=== PATIENT | male | born 1935 | race Caucasian/White ===

== ENCOUNTER 2016-04-28 01:59 | Inpatient (IN) ==
--- NOTE | 2016-04-28 05:56 | Internal Med History&Physical ---
<Mike Musa - Last Filed: 04/28/16 06:31> Date of Encounter: 04/28/16 Time of Encounter: 05:52 Assessment and Plan (1) NSTEMI (non-ST elevated myocardial infarction) Current visit: Yes Status: Acute Troponin of >50 collected at [place], Cardiology consulted and will manage intervention Continue on Heparin ggt, ASA, Statin, Morphine PRN for pain; patient has adverse reaction to Beta-blockers, will consider adding them He was on supplemental oxygen but is now requesting BiPAP as he has respiratory distress Will repeat troponin x1 and obtain lipid panel and echocardiogram (2) Acute respiratory failure Current visit: Yes Status: Acute Patient currently has labored breathing despite supplemental oxygen, likely secondary to decompensated heart failure from NSTEMI Will offer BiPAP to alleviate work of breathing and recheck ABG Start on breathing treatments he takes at home as scheduled Qualifiers: Qualified Code(s): J96.00 - Acute respiratory failure, unspecified whether with hypoxia or hypercapnia (3) Acute decompensated heart failure Current visit: Yes Status: Acute No previous records in our chart to confirm with echo, but he does appear fluid overloaded in his lungs Will give another dose of Lasix 40 IV and continue him on BiPAP Obtain echocardiogram once patient is stable (4) CKD (chronic kidney disease) Current visit: Yes Status: Suspected Unsure of baseline, but patient does admit to previous high Cr readings but does not see dice table operator Once patient is more stable, will trend Cr and consider nephrology consult if no improvement Avoid nephrotoxic agents, holding home Lisinopril Qualifiers: Qualified Code(s): N18.9 - Chronic kidney disease, unspecified (5) Hypertension Current visit: Yes Status: Chronic Will hold home Cardizem and Lisinopril as blood pressure is stable and patient will be receiving Lasix Continue monitoring vitals closely in ICU setting Qualifiers: Qualified Code(s): I10 - Essential (primary) hypertension Internal Medicine - H&P: HPI Chief complaint: shortness of breath Admitted From: Home Plans for Post Hospital Care: Home History of present illness: Mr. Gonzalez is a 81 year old male who was transferred from [place] emergency department where he presented with 3 days of progressive shortness of breath. He states that the shortness of breath occurred suddenly at rest and he does not have any associated chest pain other than heartburn. 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 He denies any cardiac history but does endorse AAA repair and carotid endarectomy. He does have a history of kidney disease but does not see a dice table operator regularly. He admits that he is unsure about his CODE STATUS and would like to wait until his arrive before making a decision. However, he decided to be full code for now and that he may change his mind later after speaking with his . He currently still has a nonproductive cough and also complains of constipation and sweating, but denies any palpitations, fever, nausea, vomiting. Past Med Surg Social Fam HX - Past Medical History Medical history: COPD, hyperlipidemia, hypertension, renal disease - Social History Smoking Status: Former smoker Smokeless Tobacco Status: No Alcohol use: none Drug use: none Internal Medicine - H&P: Meds Aspirin [Ecotrin] 325 mg PO DAILY 04/27/16 [History] Cholecalciferol (Vitamin D3) [Vitamin D] 50,000 unit PO QWEEK 04/27/16 [History] Ciprofloxacin HCl [Cipro] 500 mg PO BID 04/27/16 [History] Diltiazem HCl [Diltiazem ER] 180 mg PO BID 04/27/16 [History] Fluticasone/Salmeterol [Advair 250-50 Diskus] 1 puff IH BID 04/27/16 [History] Furosemide [Lasix] 40 mg PO DAILY 04/27/16 [History] Ipratropium/Albuterol Neb [Duoneb] 3 ml IH Q6HR 04/27/16 [History] Lisinopril [Zestril] 20 mg PO QPM 04/27/16 [History] Pravastatin Sodium [Pravachol] 80 mg PO DAILY 04/27/16 [History] Tamsulosin HCl [Flomax] 0.4 mg PO DAILY 04/27/16 [History] Vitamin B Complex [B Complex] 1 tab PO DAILY 04/27/16 [History] Lisinopril [Zestril] 10 mg PO QAM 04/28/16 [History] Zolpidem [Ambien] 5 mg PO HS 04/28/16 [History] Allergies Beta-Blockers (Beta-Adrenergic Bloc Adverse Reaction (Verified 04/27/16 23:50) See Comments SYNCOPAL EPISODE codeine Adverse Reaction (Verified 04/27/16 23:50) Nausea All Systems PM: A 10-system review of systems was performed and is negative for pertinent findings except as documented above in the HPI. - Constitutional Constitutional: no chills, no fever(s), no night sweats - EENT Eyes: no change in vision, no discharge, no pain, no photophobia Ears: no ear discharge, no ear pain, no tinnitus Nose, mouth and throat: no dysphagia, no nasal discharge, no neck pain, no sore throat - Cardiovascular Cardiovascular ROS IM: dyspnea, no chest pain, no diaphoresis, no lightheadedness, no palpitations, no syncope - Respiratory Respiratory: cough, no dyspnea, no wheezing, no excessive phlegm production - Gastrointestinal Gastrointestinal: constipation, heartburn, no abdominal pain, no diarrhea, no hematemesis, no hematochezia, no melena, no nausea, no vomiting - Musculoskeletal Musculoskeletal ROS IM: no numbness, no tingling - Integumentary Integumentary IM: no rash, no unusual bruising - Neurological Neurological ROS: no confusion, no convulsions, no focal weakness, no numbness, no tingling, no tremor(s) - Hematologic/Lymphatic Hematologic/Lymphatic: no easy bruising - Constitutional Vitals: Temp Pulse Resp BP Pulse Ox 98.9 F 117 30 125/87 100 04/28/16 05:45 04/28/16 05:45 04/28/16 05:45 04/28/16 05:45 04/28/16 05:45 General appearance: Present: cooperative, mild distress (respiratory), pleasant , answers questions appropriately - Head Head exam: Present: atraumatic, normocephalic - Eye Eye exam: Present: PERRL, conjuntiva pink, sclera anicteric - Neck Neck exam general surgery: Present: supple, trachea midline. Absent: lymphadenopathy - Respiratory Respiratory exam: Present: rales. Absent: accessory muscle use, rhonchi, wheezes - Cardiovascular Cardiovascular exam: Present: +S1, +S2, tachycardia. Absent: diastolic murmur, gallop, rubs, systolic murmur - GI/Abdominal GI/Abdominal exam: Present: distended, normal bowel sounds, soft, no peritoneal signs. Absent: guarding, tenderness - Extremities Exam Extremities exam: Present: pedal edema (trace), warm, radial pulses palpable and symetrical. Absent: calf tenderness, cyanotic - Neurological Exam Neurological exam: Present: alert, no focal deficits. Absent: facial droop, speech deficit - Skin Skin exam: Present: dry, intact <Javon Dumont - Last Filed: 05/02/16 03:20> Assessment and Plan (1) SIRS (systemic inflammatory response syndrome) Current visit: Yes Status: Acute . (2) Acute and chronic respiratory failure with hypoxia Current visit: Yes Status: Acute . 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 (4) Acute kidney injury superimposed on CKD Current visit: Yes Status: Acute . (5) CKD (chronic kidney disease) stage 3, GFR 30-59 ml/min Current visit: Yes Status: Chronic . (6) Type 2 diabetes mellitus Current visit: Yes Status: Chronic . Qualifiers: Diabetes mellitus complication status: with unspecified complications Diabetes mellitus senior technical editor insulin use: without fci use Qualified Code( s): E11.8 - Type 2 diabetes mellitus with unspecified complications (7) Hyperkalemia, diminished renal excretion Current visit: Yes Status: Acute . (8) Transaminitis Current visit: Yes Status: Acute . (9) Acute coronary syndrome Current visit: Yes Status: Acute . (10) Atrial fibrillation Current visit: Yes Status: Acute . Qualifiers: Atrial fibrillation type: unspecified Qualified Code(s): I48.91 - Unspecified atrial fibrillation (11) Hematuria Current visit: Yes Status: Acute . (12) NSTEMI (non-ST elevated myocardial infarction) Current visit: Yes Status: Acute (13) Hypertension Current visit: Yes Status: Chronic Qualifiers: Hypertension type: essential hypertension Qualified Code(s): I10 - Essential (primary) hypertension Internal Medicine - H&P: HPI History of present illness: Mr. Gonzalez is a 81 year old male Past Med Surg Social Fam HX - Past Medical History Source: old records reviewed Medical history: arthritis, coronary artery disease, peripheral artery disease - Past Surgical History Surgical History: orthopedic, other, other - Social History Activity Level: Mostly sedentary Recent Out of Country Travel Within the Last 8 Weeks: No Exposure or Possible Exposure to Illness During Travel: No All Systems PM: A 10-system review of systems was performed and is negative for pertinent findings except as documented above in the HPI. - Constitutional Vitals: Temp Pulse Resp BP Pulse Ox 98.6 F 80 18 129/60 94 L 05/01/16 23:00 05/02/16 02:00 05/02/16 02:00 05/02/16 02:00 05/02/16 02:00 Internal Med - H&P Results - Labs CBC & Chem 7: 05/01/16 03:57 05/01/16 03:57 Labs: Short CBC 05/01/16 Range/Units 03:57 WBC 6.1 (4.3-11.1) K/mcL Hgb 11.9 L (12.9-16.9) g/dL Hct 36.4 L (37.5-50.1) % Plt Count 149 (140-400) K/mcL Neutrophils # 4.6 (1.6-8.9) K/mcL BMP 05/01/16 03:57 Sodium 140 Potassium 3.8 Chloride 101 Carbon Dioxide 28 BUN 72 H Creatinine 2.76 H Glucose 116 H Calcium 8.1 L Abnormal lab results RBC 3.72 M/mcL (4.19-5.50) L 05/01/16 03:57 Hgb 11.9 g/dL (12.9-16.9) L 05/01/16 03:57 Hct 36.4 % (37.5-50.1) L 05/01/16 03:57 Immature Plt Fraction 7.3 % (1.1-6.1) H 04/30/16 02:35 PT 14.2 Seconds (9.4-12.1) H 05/01/16 03:57 APTT 86.1 Seconds (26.0-36.0) H 04/30/16 Unknown ABG pO2 164 mmHg (85-104) H 04/28/16 08:13 ABG HCO3 29.2 mEQ/L (21-27) H 04/28/16 08:13 ABG Total CO2 30.6 mEq/L (20-26) H 04/28/16 08:13 ABG O2 Saturation 99 % (95-98) H 04/28/16 08:13 ABG Base Excess 4.0 mEq/L (-2.0 to 3.0) H 04/28/16 08:13 BUN 72 mg/dL (8-26) H 05/01/16 03:57 Creatinine 2.76 mg/dL (0.72-1.25) H 05/01/16 03:57 Est GFR ( Amer) 27 (> 60) L 05/01/16 03:57 Est GFR (Non-Af Amer) 22 (> 60) L 05/01/16 03:57 Glucose 116 mg/dL (70-99) H 05/01/16 03:57 POC Glucose 140 (58-89) H 04/28/16 18:55 Hemoglobin A1c 5.8 % (-5.6) H 04/29/16 02:28 Calculated Osmolality 312 (280-300) H 05/01/16 03:57 Uric Acid 15.9 mg/dL (3.5-7.2) H 04/30/16 02:35 Calcium 8.1 mg/dL (8.6-10.8) L 05/01/16 03:57 Phosphorus 5.4 mg/dL (2.3-4.7) H 04/30/16 02:35 AST 110 Units/L (5-34) H 04/29/16 02:28 Troponin I > 50.00 ng/mL (0-0.03) H* 04/28/16 08:00 B-Natriuretic Peptide 2025 pg/mL (0-100) H 04/29/16 02:28 Albumin 2.7 g/dL (3.5-5.0) L 04/30/16 02:35 Albumin/Globulin Ratio 0.9 (1.1-2.2) L 04/29/16 02:28 LDL Cholesterol, Calc 124 mg/dL (0-99) H 04/28/16 08:00 HDL Cholesterol 36 mg/dL (40-59) L 04/28/16 08:00 Cholesterol/HDL Ratio 5.0 (0-4.9) H 04/28/16 08:00 Vitamin B12 > 2000 pg/mL (213-816) H 04/30/16 02:35 PTH Intact 250.8 pg/ml (8.5-72.5) H 04/30/16 02:35 Ur Specimen Adequacy See below A 04/28/16 08:32 Urine Color Red (Yellow) A 04/29/16 16:00 Urine Clarity Turbid (Clear) A 04/29/16 16:00 Urine Protein 30 mg/dL (Neg-Trace) H 04/29/16 16:00 Urine Blood Large (Negative) H 04/29/16 16:00 Ur Leukocyte Esterase Large (Negative) H 04/29/16 16:00 Urine Microscopic RBC TNTC per hpf (0-3) H 04/29/16 16:00 Urine Microscopic WBC 15-30 per hpf (0-3) H 04/29/16 16:00 Ur Squamous Epith Cells Many per lpf (None-Few) H 04/29/16 16:00 Ur Culture Indicated? YES (NO) A 04/29/16 16:00 Microalb/Creat Ratio 61 (0-30) H 04/29/16 17:04 Protein/Creatinin Ratio 0.21 mg/mg (0-0.20) H 04/29/16 17:04 Urine Total Protein 15 mg/dL (1-14) H 04/29/16 17:04 Laboratory Last Values WBC 6.1 K/mcL (4.3-11.1) 05/01/16 03:57 RBC 3.72 M/mcL (4.19-5.50) L 05/01/16 03:57 Hgb 11.9 g/dL (12.9-16.9) L 05/01/16 03:57 Hct 36.4 % (37.5-50.1) L 05/01/16 03:57 MCV 97.8 fL (83.0-100.0) 05/01/16 03:57 MCH 32.0 pg (28.0-33.3) 05/01/16 03:57 MCHC 32.7 g/dL (31.6-35.5) 05/01/16 03:57 RDW 13.1 % (11.5-14.5) 05/01/16 03:57 Plt Count 149 K/mcL (140-400) 05/01/16 03:57 MPV 11.4 fL (9.4-12.4) 05/01/16 03:57 Immature Gran % 0.5 % (0-4) 05/01/16 03:57 Seg Neutrophils % 76.5 % 05/01/16 03:57 Lymphocytes % 11.1 % 05/01/16 03:57 Monocytes % 10.6 % 05/01/16 03:57 Eosinophils % 1.3 % 05/01/16 03:57 Basophils % 0.0 % 05/01/16 03:57 Neutrophils # 4.6 K/mcL (1.6-8.9) 05/01/16 03:57 Lymphocytes # 0.7 K/mcL (0.6-4.6) 05/01/16 03:57 Monocytes # 0.6 K/mcL (0.0-1.3) 05/01/16 03:57 Eosinophils # 0.1 K/mcL (0.0-0.6) 05/01/16 03:57 Basophils # 0.0 K/mcL (0.0-0.2) 05/01/16 03:57 Immature Plt Fraction 7.3 % (1.1-6.1) H 04/30/16 02:35 PT 14.2 Seconds (9.4-12.1) H 05/01/16 03:57 INR 1.3 05/01/16 03:57 APTT 86.1 Seconds (26.0-36.0) H 04/30/16 Unknown ABG pH 7.42 pH Units (7.32-7.45) 04/28/16 08:13 ABG pCO2 45 mmHg (35-45) 04/28/16 08:13 ABG pO2 164 mmHg (85-104) H 04/28/16 08:13 ABG HCO3 29.2 mEQ/L (21-27) H 04/28/16 08:13 ABG Total CO2 30.6 mEq/L (20-26) H 04/28/16 08:13 ABG O2 Saturation 99 % (95-98) H 04/28/16 08:13 ABG Base Excess 4.0 mEq/L (-2.0 to 3.0) H 04/28/16 08:13 Blood Gas Modality BIPAP 04/28/16 08:13 Inspired O2 40 % 04/28/16 08:13 Sodium 140 mEq/L (136-145) 05/01/16 03:57 Potassium 3.8 mEq/L (3.5-4.5) 05/01/16 03:57 Chloride 101 mEq/L (98-109) 05/01/16 03:57 Carbon Dioxide 28 mEq/L (19-29) 05/01/16 03:57 BUN 72 mg/dL (8-26) H 05/01/16 03:57 Creatinine 2.76 mg/dL (0.72-1.25) H 05/01/16 03:57 Est GFR ( Amer) 27 (> 60) L 05/01/16 03:57 Est GFR (Non-Af Amer) 22 (> 60) L 05/01/16 03:57 BUN/Creatinine Ratio 26 (6-26) 05/01/16 03:57 Glucose 116 mg/dL (70-99) H 05/01/16 03:57 POC Glucose 140 (58-89) H 04/28/16 18:55 Est Mean Plasma Glucose 120 mg/dl 04/29/16 02:28 Hemoglobin A1c 5.8 % (-5.6) H 04/29/16 02:28 Calculated Osmolality 312 (280-300) H 05/01/16 03:57 Uric Acid 15.9 mg/dL (3.5-7.2) H 04/30/16 02:35 Calcium 8.1 mg/dL (8.6-10.8) L 05/01/16 03:57 Phosphorus 5.4 mg/dL (2.3-4.7) H 04/30/16 02:35 Magnesium 2.1 mg/dL (1.6-2.6) 04/28/16 08:00 Total Bilirubin 0.5 mg/dL (0.2-1.2) 04/29/16 02:28 Direct Bilirubin 0.2 mg/dL (0.0-0.5) 04/28/16 08:00 Indirect Bilirubin 0.2 mg/dL (0.0-1.2) 04/28/16 08:00 AST 110 Units/L (5-34) H 04/29/16 02:28 ALT 44 Units/L (0-55) 04/29/16 02:28 Alkaline Phosphatase 62 Units/L (38-126) 04/29/16 02:28 Troponin I > 50.00 ng/mL (0-0.03) H* 04/28/16 08:00 B-Natriuretic Peptide 2025 pg/mL (0-100) H 04/29/16 02:28 Serum Total Protein 6.2 g/dL (6.0-8.3) 04/29/16 02:28 Albumin 2.7 g/dL (3.5-5.0) L 04/30/16 02:35 Globulin 3.3 g/dL (2.4-3.5) 04/29/16 02:28 Albumin/Globulin Ratio 0.9 (1.1-2.2) L 04/29/16 02:28 Triglycerides 104 mg/dL (< 150) 04/28/16 08:00 Cholesterol 181 mg/dL (< 200) 04/28/16 08:00 LDL Cholesterol, Calc 124 mg/dL (0-99) H 04/28/16 08:00 VLDL Cholesterol, Calc 21 mg/dL (< 31) 04/28/16 08:00 HDL Cholesterol 36 mg/dL (40-59) L 04/28/16 08:00 Cholesterol/HDL Ratio 5.0 (0-4.9) H 04/28/16 08:00 Vitamin B12 > 2000 pg/mL (213-816) H 04/30/16 02:35 25-OH Vitamin D Total 48 ng/mL (30-80) 04/30/16 02:35 TSH 0.472 mcIU/mL (0.350-4.840) 04/28/16 08:00 PTH Intact 250.8 pg/ml (8.5-72.5) H 04/30/16 02:35 Ur Specimen Adequacy See below A 04/28/16 08:32 Urine Color Red (Yellow) A 04/29/16 16:00 Urine Clarity Turbid (Clear) A 04/29/16 16:00 Urine pH 5.5 pH Units (5.0-8.0) 04/29/16 16:00 Ur Specific [place] 1.013 (1.010-1.025) 04/29/16 16:00 Urine Protein 30 mg/dL (Neg-Trace) H 04/29/16 16:00 Urine Glucose (UA) Normal mg/dL (Normal) 04/29/16 16:00 Urine Ketones Negative mg/dL (Negative) 04/29/16 16:00 Urine Blood Large (Negative) H 04/29/16 16:00 Urine Nitrite Negative (Negative) 04/29/16 16:00 Urine Bilirubin Negative (Negative) 04/29/16 16:00 Urine Urobilinogen Normal mg/dL (Normal) 04/29/16 16:00 Ur Leukocyte Esterase Large (Negative) H 04/29/16 16:00 Urine Microscopic RBC TNTC per hpf (0-3) H 04/29/16 16:00 Urine Microscopic WBC 15-30 per hpf (0-3) H 04/29/16 16:00 Ur Eosinophil Smear 0 % (None Seen) 04/29/16 16:00 Ur Squamous Epith Cells Many per lpf (None-Few) H 04/29/16 16:00 Urine Bacteria None Seen per hpf (None-Few) 04/29/16 16:00 Hyaline Casts Test Not Performed 04/29/16 16:00 Ur Culture Indicated? YES (NO) A 04/29/16 16:00 Urine Creatinine 71 mg/dL 04/29/16 17:04 Urine Microalbumin 43 mg/L 04/29/16 17:04 Microalb/Creat Ratio 61 (0-30) H 04/29/16 17:04 Protein/Creatinin Ratio 0.21 mg/mg (0-0.20) H 04/29/16 17:04 Urine Total Protein 15 mg/dL (1-14) H 04/29/16 17:04 Hep Bs Antigen Nonreactive (Nonreactive) 05/01/16 14:15 Blood Type A POSITIVE 04/28/16 08:00 Antibody Screen NEGATIVE 04/28/16 08:00 - ABG Interpretation ABG results: 04/28/16 08:13 ABG pH 7.42 ABG pCO2 45 ABG pO2 164 H ABG HCO3 29.2 H ABG Total CO2 30.6 H ABG O2 Saturation 99 H ABG Base Excess 4.0 H - Impressions ITS Impressions Chest X-Ray 04/29/16 10:24 IMPRESSION: 1. Stable interstitial thickening in the lung bases which may be related to mild pulmonary vascular congestion. 2. No new lung infiltrate. D/ / 04/29/2016 15:36:35 Emmanuel Marie MD / Edith Pollard Interpreting Provider: Emmanuel Marie MD Retroperitoneum Ultrasound 04/30/16 11:30 IMPRESSION: The kidneys are normal in size, though mildly hyperechoic. This could be related to very mild medical renal disease. Simple appearing cystic lesions are seen in the kidneys bilaterally, without solid mass or hydronephrosis. The bladder is not well evaluated given the presence of an unclamped Wright catheter. D/ / Brandyn Day MD / Brandyn Day MD Interpreting Provider: Brandyn Day MD Chest X-Ray 04/30/16 16:27 IMPRESSION: 1. Left internal jugular catheter terminating in the proximal SVC. D/ / Milton Goldberg MD / Milton Goldberg MD Interpreting Provider: Milton Goldberg MD Retroperitoneum Ultrasound 04/30/16 11:30 IMPRESSION: The kidneys are normal in size, though mildly hyperechoic. This could be related to very mild medical renal disease. Simple appearing cystic lesions are seen in the kidneys bilaterally, without solid mass or hydronephrosis. The bladder is not well evaluated given the presence of an unclamped Wright catheter. D/ / Brandyn Day MD / Brandyn Day MD Interpreting Provider: Brandyn Day MD Chest X-Ray 04/30/16 16:27 IMPRESSION: 1. Left internal jugular catheter terminating in the proximal SVC. D/ / Milton Goldberg MD / Milton Goldberg MD Interpreting Provider: Milton Goldberg MD - Attending Attestation My signature below is to certify that this patient is under my care and that I, or the Resident Physician working with me, has had a [id number] encounter with this patient. Care plan has been reviewed and discussed in detail with the patient. Questions addressed. Advance care directive discussion briefly addressed. The patient does not declare any healthcare restrictions at this time. Outpatient medications scheduled. Reviewed, confirmed and facilitated as appropriate. Reconciliation of home treatments including adjustments, substitutions and reintroduction into the treatment regimen will address necessary maintenance therapies for chronic pre-existing medical conditions. Smoking cessation counseling briefly addressed. The patient declares himself a former smoker. Hospital course will be dependent upon clinical findings, treatment response and potential consultative interventions. The patient is at risk for acute clinical decline and morbidity given his presenting chief complaint, advanced age and associated comorbidities. Condition is serious. Prognosis is guarded. CODE STATUS is full.
[2016-04-28] MEDS ORDERED: Naloxone 0.4 MG/ML INJ IVP PRN (06:21)
[2016-04-28] MEDS ORDERED: *HR* Morphine 2 MG/ML SYRINGE IVP PRN (06:21)
[2016-04-28] MEDS ORDERED: Ondansetron 4 MG/2 ML VIAL IVP PRN ×2 (06:21→07:25)
[2016-04-28] MEDS ORDERED: *HR* Heparin 5,000 UNIT/ML VIAL IVP PRN ×6 (06:23→07:05)
[2016-04-28] MEDS ORDERED: Furosemide 40 MG/4 ML VIAL IVP ONE (06:23)
[2016-04-28] MEDS ORDERED: Heparin 25,000 UNIT/500 ML D5W 25,000 UNIT/500 ML MLS IVC SCH ×3 (06:30→06:45)
[2016-04-28] MEDS ORDERED: *HR* Heparin 5,000 UNIT/ML VIAL IVP ONE (07:05)
[2016-04-28] MEDS ORDERED: Nitroglycerin 0.4 MG TAB.SUBL SL PRN (07:05)
[2016-04-28] MEDS ORDERED: *HR* Metoprolol 5 MG/5 ML VIAL IVP PRN (07:05)
[2016-04-28] MEDS ORDERED: Nicotine 21 MG PATCH.TD24 TD PRN (07:05)
[2016-04-28] MEDS ORDERED: Nitroglycerin 25 MG/250 ML INFUS..BTL IVC SCH (07:15)
[2016-04-28] MEDS ORDERED: 0.9 % Sodium Chloride 1,000 ML IVC SCH (07:15)
[2016-04-28] MEDS ORDERED: Albuterol 2.5 MG/3 ML NEBULIZER IH PRN (07:19)
[2016-04-28 08:18] LABS: INR 1.3; Prothrombin Time 14.6 Seconds (9.4-12.1)
[2016-04-28 08:20] LABS: Activated Partial Thrombo Time 59.1 Seconds (26.0-36.0)
[2016-04-28 08:22] LABS: ABG HCO3 29.2 mEQ/L (21-27); ABG Oxygen Saturation 99 % (95-98); ABG PCO2 45 mmHg (35-45); ABG PH 7.42 pH Units (7.32-7.45); ABG PO2 164 mmHg (85-104); ABG TCO2 30.6 mEq/L (20-26); Blood Gas FiO2 40 %
[2016-04-28 08:26] LABS: Albumin 3.4 g/dL (3.5-5.0); Albumin/Globulin Ratio 0.9 (1.1-2.2); Bilirubin,Direct 0.2 mg/dL (0.0-0.5); Bilirubin,Indirect 0.2 mg/dL (0.0-1.2); Bilirubin,Total 0.4 mg/dL (0.2-1.2); Calcium 9.3 mg/dL (8.6-10.8); Globulin 3.6 g/dL (2.4-3.5); Magnesium 2.1 mg/dL (1.6-2.6); Potassium 4.4 mEq/L (3.5-4.5)
[2016-04-28] MEDS: Nystatin SUSP 5 ML UD.LIQ PO SCH ×4 (08:38→20:04)
[2016-04-28] MEDS: Aspirin 81 MG TAB.CHEW PO SCH (08:38)
[2016-04-28] MEDS: Pantoprazole 40 MG VIAL IVPB SCH (08:38)
[2016-04-28 08:39] LABS: Hematocrit 42.3 % (37.5-50.1); Hemoglobin 13.9 g/dL (12.9-16.9); Mean Corpuscular HGB Conc 32.9 g/dL (31.6-35.5); Mean Corpuscular Volume 97.2 fL (83.0-100.0); Mean Platelet Volume 11.7 fL (9.4-12.4); Platelet Count 171 K/mcL (140-400); Red Blood Count 4.35 M/mcL (4.19-5.50); Red Cell Distribution Width 13.2 % (11.5-14.5)
[2016-04-28] MEDS: Nitroglycerin 25 MG/250 ML INFUS..BTL IVC SCH ×2 (08:40→17:43)
[2016-04-28 08:47] LABS: Thyroid Stimulating Hormone 0.472 mcIU/mL (0.350-4.840)
[2016-04-28 08:58] LABS: Bilirubin,Urine Negative (Negative); Blood,Urine Large (Negative); Clarity,Urine Cloudy (Clear); Color,Urine Red (Yellow); Glucose,Urine (UA) Normal (Normal); Ketones,Urine Trace mg/dL (Negative); Protein,Urine 100 mg/dL (Neg-Trace); Specific Gravity,Urine 1.017 (1.010-1.025); Urobilinogen,Urine Normal (Normal)
[2016-04-28 08:59] LABS: Leukocyte Esterase,Urine Small (Negative); Nitrite,Urine Negative (Negative)
[2016-04-28] MEDS ORDERED: NON-FORMULARY MEDICATION 1 EACH EACH (Ipratropium/Albuterol Sulfate [Combivent Respimat In IH SCH (09:00)
[2016-04-28] MEDS: *HR* LORazepam 2 MG/ML VIAL IVP SCH ×4 (10:11→20:06)
[2016-04-28] MEDS: Ipratropium/Albuterol Neb 3 ML IH SCH ×3 (10:52→22:13)
--- NOTE | 2016-04-28 11:28 | Cardiology Consult Note ---
Date of Encounter: 04/28/16 Time of Encounter: 11:25 Assessment and Plan (1) Acute coronary syndrome Current Visit: Yes Status: Acute Mr. Gonzalez presents with a recent SD which likely developed on Saturday at the time of onset of SOB. His ECG demonstrates the development of q waves suggesting recent SD and his troponin is >50. Unfortunately, his GFR is 20 and is at increased risk for VANITA and requiring dialysis if LHC was performed. He is also having hematuria complicating matters. He is not an appropriate candidate for cardiac catheterization at this time. I recommend Nephrology evaluation and Urology as well. He should remain on heparin. He is also on statin and NTG gtt. He has some unclear intolerance to beta blockers although he received this morning without side effect. I recommend holding it at this time. He is also tachypneic and demonstrates increased work of breathing. Presumably , he has systolic heart failure associated with recent SD. I recommend stopping fluids and diuresing him and continuing BIPAP. I discussed the findings, concerns and plan with the patient. He is very concerned about possibility of requiring dialysis if proceed with LHC and would like to avoid invasive evaluation. Discussion w patient/family: The assessment and plan as outlined above was discussed with the patient and/or family members who expressed understanding and agreement. All questions were answered. Thank you for involving us in the care of your patient. Please call with any questions. History of Present Illness Consult date: 04/28/16 Requesting physician: Mike Musa Consult reason: ACS Chief complaint: SOB History of present illness: Mr. Gonzalez is a 81 year old male presenting to [facility] from [place] [facility] for an acute coronary syndrome. The patient states that he developed acute onset of SOB this past Saturday which became progressively worse over the past few days. He decided to be evaluated in the ER last night. He was found to have troponin>50. I reviewed the presenting ECG which demonstrated ST elevation of approximately 1 mm in V3, 0.5mm in V4 associated with q waves. His CXR was unremarkable, BNP 1400 and creatinine 3.12 with a GFR of 19. At the bedside, the patient is somewhat tachypneic on BiPAP. He describes no chest pain and says that he actually feels about "50%" better. He remains hemodynamically stable. Past Med Surg Social Fam HX - Past Medical History Attestation: Yes The following information was validated with the patient. Medical history: COPD, hyperlipidemia, hypertension, renal disease - Social History Smoking Status: Former smoker Smokeless Tobacco Status: No Alcohol use: none Drug use: none Medications and Allergies Aspirin [Ecotrin] 325 mg PO DAILY 04/27/16 [History] Cholecalciferol (Vitamin D3) [Vitamin D] 50,000 unit PO QWEEK 04/27/16 [History] Ciprofloxacin HCl [Cipro] 500 mg PO BID 04/27/16 [History] Diltiazem HCl [Diltiazem ER] 180 mg PO BID 04/27/16 [History] Fluticasone/Salmeterol [Advair 250-50 Diskus] 1 puff IH BID 04/27/16 [History] Furosemide [Lasix] 40 mg PO DAILY 04/27/16 [History] Ipratropium/Albuterol Neb [Duoneb] 3 ml IH Q6HR 04/27/16 [History] Lisinopril [Zestril] 20 mg PO QPM 04/27/16 [History] Pravastatin Sodium [Pravachol] 80 mg PO DAILY 04/27/16 [History] Tamsulosin HCl [Flomax] 0.4 mg PO DAILY 04/27/16 [History] Vitamin B Complex [B Complex] 1 tab PO DAILY 04/27/16 [History] Lisinopril [Zestril] 10 mg PO QAM 04/28/16 [History] Zolpidem [Ambien] 5 mg PO HS 04/28/16 [History] Allergies Beta-Blockers (Beta-Adrenergic Bloc Adverse Reaction (Verified 04/27/16 23:50) See Comments SYNCOPAL EPISODE codeine Adverse Reaction (Verified 04/27/16 23:50) Nausea All Systems Review: A 10-system review of systems was performed and is negative for pertinent findings except as documented above in the HPI. Physical Examination Vital signs reviewed. Vital Signs, Last 4 Hours Temp 04/28/16 08:02 98.6 F General: Conversant, No Apparent Distress, Other (somewhat tachypneic) HEENT: Atraumatic, Other (wearing BIPAP) Cardiac: Reg Rate and Rhythm, Normal S1 and S2, No Murmur Lungs: Other (difficult to appreciate breath sounds-wearing BIPAP) Neuro: Alert and responsive, No focal deficits noted Abdomen: Soft, Non-Tender, Other (bowel sounds present, abdomen obese) Extremities: No Edema, Other (diminished pedal pulses bilaterally, 1+ bilateral femoral pulses, 1+ symmetric radial pulses) Results 04/28/16 08:00 04/28/16 08:00 Lab Results 04/28/16 04/28/16 04/28/16 08:00 08:00 08:00 WBC 10.9 Hgb 13.9 Hct 42.3 Plt Count 171 INR APTT Sodium 142 Potassium 4.4 Chloride 102 Carbon Dioxide 23 BUN 56 H Creatinine 3.02 H Glucose 139 H Calcium 9.3 Magnesium 2.1 Total Bilirubin 0.4 AST 194 H ALT 53 Alkaline Phosphatase 74 Troponin I > 50.00 H* TSH 0.472 04/28/16 08:00 WBC Hgb Hct Plt Count INR 1.3 APTT 59.1 H D Sodium Potassium Chloride Carbon Dioxide BUN Creatinine Glucose Calcium Magnesium Total Bilirubin AST ALT Alkaline Phosphatase Troponin I TSH - Imaging and Cardiology Chest Xray: report reviewed - EKG Interpretation EKG results cardiology: personally reviewed (see HPI), other (Telemetry reviewed , no concerning dysrhythmia, sinus tachycardia) Consult Discharge Plan - Plan Referrals: Tavares Palumbo, FACILITIES ADMINISTRATOR [Primary Care Provider] -
--- NOTE | 2016-04-28 11:57 | Pulmonology Consult Note ---
<Garland Polanco - Last Filed: 04/28/16 11:57> Date of Encounter: 04/28/16 Time of Encounter: 09:30 Past Med Surg Social Fam HX - Past Medical History Medical history: COPD, hyperlipidemia, hypertension, renal disease - Social History Smoking Status: Former smoker Smokeless Tobacco Status: No Alcohol use: none Drug use: none Medications and Allergies Aspirin [Ecotrin] 325 mg PO DAILY 04/27/16 [History] Cholecalciferol (Vitamin D3) [Vitamin D] 50,000 unit PO QWEEK 04/27/16 [History] Ciprofloxacin HCl [Cipro] 500 mg PO BID 04/27/16 [History] Diltiazem HCl [Diltiazem ER] 180 mg PO BID 04/27/16 [History] Fluticasone/Salmeterol [Advair 250-50 Diskus] 1 puff IH BID 04/27/16 [History] Furosemide [Lasix] 40 mg PO DAILY 04/27/16 [History] Ipratropium/Albuterol Neb [Duoneb] 3 ml IH Q6HR 04/27/16 [History] Lisinopril [Zestril] 20 mg PO QPM 04/27/16 [History] Pravastatin Sodium [Pravachol] 80 mg PO DAILY 04/27/16 [History] Tamsulosin HCl [Flomax] 0.4 mg PO DAILY 04/27/16 [History] Vitamin B Complex [B Complex] 1 tab PO DAILY 04/27/16 [History] Lisinopril [Zestril] 10 mg PO QAM 04/28/16 [History] Zolpidem [Ambien] 5 mg PO HS 04/28/16 [History] Allergies Beta-Blockers (Beta-Adrenergic Bloc Adverse Reaction (Verified 04/27/16 23:50) See Comments SYNCOPAL EPISODE codeine Adverse Reaction (Verified 04/27/16 23:50) Nausea All Systems: A 10-system review of systems was performed and is negative for pertinent findings except as documented above in the HPI. Physical Examination Vital Signs: Vital Signs, Last 4 Hours Temp 04/28/16 11:42 97.5 F L 04/28/16 08:02 98.6 F Results - Laboratory Findings CBC and BMP: 04/28/16 08:00 04/28/16 08:00 ABG ABG pH 7.42 pH Units (7.32-7.45) 04/28/16 08:13 ABG pCO2 45 mmHg (35-45) 04/28/16 08:13 ABG pO2 164 mmHg (85-104) H 04/28/16 08:13 ABG O2 Saturation 99 % (95-98) H 04/28/16 08:13 PT/INR, D-dimer PT 14.6 Seconds (9.4-12.1) H 04/28/16 08:00 Abnormal lab findings: Abnormal lab results PT 14.6 Seconds (9.4-12.1) H 04/28/16 08:00 APTT 59.1 Seconds (26.0-36.0) H D 04/28/16 08:00 ABG pO2 164 mmHg (85-104) H 04/28/16 08:13 ABG HCO3 29.2 mEQ/L (21-27) H 04/28/16 08:13 ABG Total CO2 30.6 mEq/L (20-26) H 04/28/16 08:13 ABG O2 Saturation 99 % (95-98) H 04/28/16 08:13 ABG Base Excess 4.0 mEq/L (-2.0 to 3.0) H 04/28/16 08:13 BUN 56 mg/dL (8-26) H 04/28/16 08:00 Creatinine 3.02 mg/dL (0.72-1.25) H 04/28/16 08:00 Est GFR ( Amer) 24 (> 60) L 04/28/16 08:00 Est GFR (Non-Af Amer) 20 (> 60) L 04/28/16 08:00 Glucose 139 mg/dL (70-99) H 04/28/16 08:00 Calculated Osmolality 312 (280-300) H 04/28/16 08:00 AST 194 Units/L (5-34) H 04/28/16 08:00 Troponin I > 50.00 ng/mL (0-0.03) H* 04/28/16 08:00 Albumin 3.4 g/dL (3.5-5.0) L 04/28/16 08:00 Globulin 3.6 g/dL (2.4-3.5) H 04/28/16 08:00 Albumin/Globulin Ratio 0.9 (1.1-2.2) L 04/28/16 08:00 LDL Cholesterol, Calc 124 mg/dL (0-99) H 04/28/16 08:00 HDL Cholesterol 36 mg/dL (40-59) L 04/28/16 08:00 Cholesterol/HDL Ratio 5.0 (0-4.9) H 04/28/16 08:00 Ur Specimen Adequacy See below A 04/28/16 08:32 Urine Color Red (Yellow) A 04/28/16 08:32 Urine Clarity Cloudy (Clear) A 04/28/16 08:32 Urine Protein 100 mg/dL (Neg-Trace) H 04/28/16 08:32 Urine Ketones Trace mg/dL (Negative) H 04/28/16 08:32 Urine Blood Large (Negative) H 04/28/16 08:32 Ur Leukocyte Esterase Small (Negative) H 04/28/16 08:32 - Clinical Findings Intake & Output: Intake & Output 04/27/16 04/28/16 04/28/16 23:59 07:59 15:59 Intake Total 0 / 0 Output Total 100 / 100 375 / 375 Balance -100 / -100 -375 / -375 Weight 104 kg Consult Discharge Plan - Plan Referrals: Tavares Palumbo, MERCHANDISE CARRIER [Primary Care Provider] - <Cris Velarde - Last Filed: 04/28/16 20:14> Date of Encounter: 04/28/16 Assessment and Plan (1) Acute coronary syndrome Current Visit: Yes Status: Acute Appreciate security control assessor input. Patient at risk of his renal function could worsen with contrast during cardiac cath and will defer this to patient and security control assessor. (2) Acute decompensated heart failure Current Visit: Yes Status: Acute This is another risk factor that patient breathing could worsen with pulmonary edema. Hoping with NIV and diuresis will help patient. (3) Acute respiratory failure Current Visit: Yes Status: Acute Patient is tolerating NIV now and there is a risk that he could deteriorate and code status was discussed with patient. He remain full code for now. If worsen, he will need to be on mechanical ventilation. Qualifiers: Respiratory failure complication: hypoxia Qualified Code(s): J96.01 - Acute respiratory failure with hypoxia (4) Hematuria Current Visit: Yes Status: Acute Appreciate urologist's input. (5) NSTEMI (non-ST elevated myocardial infarction) Current Visit: Yes Status: Acute (6) CKD (chronic kidney disease) Current Visit: Yes Status: Chronic Patient has advance lung disease and may need hemodialysis if he receive contrast. Qualifiers: Chronic kidney disease stage: unspecified stage Qualified Code(s): N18.9 - Chronic kidney disease, unspecified History of Present Illness Consult date: 04/28/16 Requesting physician: Jose Angel Dutton Chief complaint: Dyspnea History of present illness: This is a very pleasant 81 year old male with history of copd, but not using BiPAP or oxygen at home. at home and no diagnosis of INOCENCIA was transferred from [place] emergency department where he presented with 3-4 days of progressive dyspnea. He has copd and he stated he use inhalers. He has been on BiPAP and feels it is helping his breathing. He said this was a sudden onset and this happened on rest. He said he has no chest pain, only heartburn. He denies any significant productive cough or significant wheezing. He has constipation and sweating, but no nausea or vomiting and no palpitation. All Systems: A 10-system review of systems was performed and is negative for pertinent findings except as documented above in the HPI. Physical Examination Vital Signs: Vital Signs, Last 4 Hours Temp Pulse Resp BP Pulse Ox 04/28/16 17:00 98 24 99/75 100 04/28/16 16:00 98 20 101/67 100 04/28/16 15:23 24 109/77 100 04/28/16 15:00 98.4 F 102 28 109/77 98 General appearance: alert, other (Mild repiratory distress) Eyes: nonicteric ENT: oropharynx dry Mallampati (class): 3 Neck: supple, no lymphadenopathy, no JVD Effort: normal Inspection: other (Obese) Auscultation: bilateral: rales, rhonchi Percussion: bilateral: not dull Cardiovascular: regular rate and rhythm Gastrointestinal: normoactive bowel sounds, soft, non-tender Extremities: no cyanosis, no edema normal mental status, non-focal exam mood appropriate : there is bleeding around Wright catheter. Ventilator Settings Ventilator Settings: Patient on BiPAP FIO2 40% Results - Laboratory Findings CBC and BMP: 04/28/16 08:00 04/28/16 08:00 ABG ABG pH 7.42 pH Units (7.32-7.45) 04/28/16 08:13 ABG pCO2 45 mmHg (35-45) 04/28/16 08:13 ABG pO2 164 mmHg (85-104) H 04/28/16 08:13 ABG O2 Saturation 99 % (95-98) H 04/28/16 08:13 PT/INR, D-dimer PT 14.6 Seconds (9.4-12.1) H 04/28/16 08:00 Abnormal lab findings: Abnormal lab results PT 14.6 Seconds (9.4-12.1) H 04/28/16 08:00 APTT 47.4 Seconds (26.0-36.0) H 04/28/16 14:07 ABG pO2 164 mmHg (85-104) H 04/28/16 08:13 ABG HCO3 29.2 mEQ/L (21-27) H 04/28/16 08:13 ABG Total CO2 30.6 mEq/L (20-26) H 04/28/16 08:13 ABG O2 Saturation 99 % (95-98) H 04/28/16 08:13 ABG Base Excess 4.0 mEq/L (-2.0 to 3.0) H 04/28/16 08:13 BUN 56 mg/dL (8-26) H 04/28/16 08:00 Creatinine 3.02 mg/dL (0.72-1.25) H 04/28/16 08:00 Est GFR ( Amer) 24 (> 60) L 04/28/16 08:00 Est GFR (Non-Af Amer) 20 (> 60) L 04/28/16 08:00 Glucose 139 mg/dL (70-99) H 04/28/16 08:00 Calculated Osmolality 312 (280-300) H 04/28/16 08:00 AST 194 Units/L (5-34) H 04/28/16 08:00 Troponin I > 50.00 ng/mL (0-0.03) H* 04/28/16 08:00 Albumin 3.4 g/dL (3.5-5.0) L 04/28/16 08:00 Globulin 3.6 g/dL (2.4-3.5) H 04/28/16 08:00 Albumin/Globulin Ratio 0.9 (1.1-2.2) L 04/28/16 08:00 LDL Cholesterol, Calc 124 mg/dL (0-99) H 04/28/16 08:00 HDL Cholesterol 36 mg/dL (40-59) L 04/28/16 08:00 Cholesterol/HDL Ratio 5.0 (0-4.9) H 04/28/16 08:00 Ur Specimen Adequacy See below A 04/28/16 08:32 Urine Color Red (Yellow) A 04/28/16 08:32 Urine Clarity Cloudy (Clear) A 04/28/16 08:32 Urine Protein 100 mg/dL (Neg-Trace) H 04/28/16 08:32 Urine Ketones Trace mg/dL (Negative) H 04/28/16 08:32 Urine Blood Large (Negative) H 04/28/16 08:32 Ur Leukocyte Esterase Small (Negative) H 04/28/16 08:32 - Microbiology Findings Microbiology Findings: Microbiology, Last 48 Hours 04/28/16 06:55 Sputum Culture - Final Sputum - Clinical Findings Intake & Output: Intake & Output 04/28/16 04/28/16 04/28/16 07:59 15:59 23:59 Intake Total 0 / 0 120 / 120 Output Total 100 / 100 825 / 825 Balance -100 / -100 -825 / -825 120 / 120 Weight 104 kg - Attending Attestation I examined this patient and my medical decision-making was reviewed with the ECOMMER[employer] ANALYST/PA/Advanced Practice Nurse/Resident Physician. I agree with the documented findings, disposition and treatment plan as described except to the extent set forth below. Patient seen and examined. Labs, radiology, chart personally reviewed. Agree with resident's history and physical, assessment, plan with following comments: MOTOR AND GENERATOR ASSEMBLER: Patient follows commands, Pulmonary: Acceptable oxygenation and ventilation. Patient on NIV and he feels comfortable with using NIV. I'm concerned with his underlying copd and with cardiac events his condition could deteriorate with his exam indicate possible pulmonary edema. I don't feel patient has AECOPD, will add Symbicort to his treatment. Cardiovascular: Discussed with security control assessor, if patient will need cardiac cath, concern is renal function. Patient on heparin. Patient could deteriorate due to his cardiopulmonary disease as well as renal function. GI: Nutrition per dietary and GI prophylaxis per routine Heme: DVT prophylaxis per routine Renal; urine out put and renal funtion reviewed. Urology consulted for the bleeding from around the Wright catheter. Patient is on heparin drip which is a risk factor. Due to his respiratory failure, diuresis could worsen his renal function. Endorcine: blood glucose is monitored Lines: all lines checked and no evidence of infections Skin: skin care to prevent pressure ulcers per nursing routine care I spent 35 min of Critical Care time with this patient. It involved decision making of high complexity to assess, manipulate, and support vital organ system failure and/or to prevent further life threatening deterioration of the patient' s condition. The time involved in the performance of separately reportable procedures was not counted toward critical care time.
[2016-04-28] MEDS: Heparin 25,000 UNIT/500 ML D5W 25,000 UNIT/500 ML MLS IVC SCH ×2 (13:16→14:53)
[2016-04-28] MEDS: Furosemide 40 MG/4 ML VIAL IVP SCH ×2 (13:18→17:47)
[2016-04-28] MEDS ORDERED: Perflutren Lipid Microsphere 1.3 ML in 0.9 % Sodium Chloride 8.7 ML IVP ONE (13:21)
--- NOTE | 2016-04-28 14:07 | Urology - Consult Note ---
Date of Encounter: 04/28/16 Time of Encounter: 14:05 - Assessment and Plan (1) Hematuria Current Visit: Yes Status: Acute Assessment and plan: 81-year-old man with a history of hematuria after catheter placement and initiation of heparin. I irrigated the catheter and only a small amount of clot return. The urine remained mostly clear. He is tolerating the catheter well. I recommend continuing at for now. The nurses can hand irrigate as necessary. I will follow along with you. It is okay to continue the heparin. Urology CN:HPI Consult date: 04/28/16 Reason for consult Urology: Gross Hematuria Requesting physician: Garland Polanco History of present illness: 81-year-old man was admitted for an MRI, but has a history of renal insufficiency so a cardiac catheter cannot be performed. He has been managed conservatively with heparin. A Wright catheter was placed. He says it was difficult getting the catheter in. There was some blood around the catheter afterwards. Currently the urine is more clear. He is not having any pain associated with the catheter. Prior to admission he felt that he was urinating well. He had a decent stream. He thought he was emptying adequately. Past Med Surg Social Fam HX - Past Medical History Medical history: COPD, hyperlipidemia, hypertension, renal disease - Social History Smoking Status: Former smoker Smokeless Tobacco Status: No Alcohol use: none Drug use: none Medications and Allergies Aspirin [Ecotrin] 325 mg PO DAILY 04/27/16 [History] Cholecalciferol (Vitamin D3) [Vitamin D] 50,000 unit PO QWEEK 04/27/16 [History] Ciprofloxacin HCl [Cipro] 500 mg PO BID 04/27/16 [History] Diltiazem HCl [Diltiazem ER] 180 mg PO BID 04/27/16 [History] Fluticasone/Salmeterol [Advair 250-50 Diskus] 1 puff IH BID 04/27/16 [History] Furosemide [Lasix] 40 mg PO DAILY 04/27/16 [History] Ipratropium/Albuterol Neb [Duoneb] 3 ml IH Q6HR 04/27/16 [History] Lisinopril [Zestril] 20 mg PO QPM 04/27/16 [History] Pravastatin Sodium [Pravachol] 80 mg PO DAILY 04/27/16 [History] Tamsulosin HCl [Flomax] 0.4 mg PO DAILY 04/27/16 [History] Vitamin B Complex [B Complex] 1 tab PO DAILY 04/27/16 [History] Lisinopril [Zestril] 10 mg PO QAM 04/28/16 [History] Zolpidem [Ambien] 5 mg PO HS 04/28/16 [History] Allergies Beta-Blockers (Beta-Adrenergic Bloc Adverse Reaction (Verified 04/27/16 23:50) See Comments SYNCOPAL EPISODE codeine Adverse Reaction (Verified 04/27/16 23:50) Nausea Review of Systems - Constitutional no chills, no fever(s) - EENT Nose, mouth and throat: no dizziness - Cardiovascular chest pain - Respiratory dyspnea - Gastrointestinal no nausea, no vomiting - Genitourinary hematuria, no flank pain - Musculoskeletal no back pain - Integumentary no erythema, no rash - Neurological no weakness - Psychiatric no suicidal ideation - Hematologic/Lymphatic no easy bleeding - Allergic/Immunologic no wheezing Exam Initial Vital Signs Temp Pulse Resp BP Pulse Ox 98.9 F 117 30 125/87 100 04/28/16 05:45 04/28/16 05:45 04/28/16 05:45 04/28/16 05:45 04/28/16 05:45 - General physical appearance Present: well developed, well nourished, no distress - Eyes Absent: icteric - ENT Present: normal nares - Neck Present: no masses - Respiratory Present: normal respiratory effort - Cardiovascular Cardiovascular exam IM: RRR - Abdomen Abdomen: Present: soft - Genitourinary normal penis with no external lesions, other ([address], blood noted around the catheter, urine is clear to light pink.) Urology Results - Labs 04/28/16 08:00 04/28/16 08:00 Abnormal lab results PT 14.6 Seconds (9.4-12.1) H 04/28/16 08:00 APTT 59.1 Seconds (26.0-36.0) H D 04/28/16 08:00 ABG pO2 164 mmHg (85-104) H 04/28/16 08:13 ABG HCO3 29.2 mEQ/L (21-27) H 04/28/16 08:13 ABG Total CO2 30.6 mEq/L (20-26) H 04/28/16 08:13 ABG O2 Saturation 99 % (95-98) H 04/28/16 08:13 ABG Base Excess 4.0 mEq/L (-2.0 to 3.0) H 04/28/16 08:13 BUN 56 mg/dL (8-26) H 04/28/16 08:00 Creatinine 3.02 mg/dL (0.72-1.25) H 04/28/16 08:00 Est GFR ( Amer) 24 (> 60) L 04/28/16 08:00 Est GFR (Non-Af Amer) 20 (> 60) L 04/28/16 08:00 Glucose 139 mg/dL (70-99) H 04/28/16 08:00 Calculated Osmolality 312 (280-300) H 04/28/16 08:00 AST 194 Units/L (5-34) H 04/28/16 08:00 Troponin I > 50.00 ng/mL (0-0.03) H* 04/28/16 08:00 Albumin 3.4 g/dL (3.5-5.0) L 04/28/16 08:00 Globulin 3.6 g/dL (2.4-3.5) H 04/28/16 08:00 Albumin/Globulin Ratio 0.9 (1.1-2.2) L 04/28/16 08:00 LDL Cholesterol, Calc 124 mg/dL (0-99) H 04/28/16 08:00 HDL Cholesterol 36 mg/dL (40-59) L 04/28/16 08:00 Cholesterol/HDL Ratio 5.0 (0-4.9) H 04/28/16 08:00 Ur Specimen Adequacy See below A 04/28/16 08:32 Urine Color Red (Yellow) A 04/28/16 08:32 Urine Clarity Cloudy (Clear) A 04/28/16 08:32 Urine Protein 100 mg/dL (Neg-Trace) H 04/28/16 08:32 Urine Ketones Trace mg/dL (Negative) H 04/28/16 08:32 Urine Blood Large (Negative) H 04/28/16 08:32 Ur Leukocyte Esterase Small (Negative) H 04/28/16 08:32 Diabetes panel 04/28/16 Range/Units 08:00 Sodium 142 (136-145) mEq/L Potassium 4.4 (3.5-4.5) mEq/L Chloride 102 (98-109) mEq/L Carbon Dioxide 23 (19-29) mEq/L BUN 56 H (8-26) mg/dL Creatinine 3.02 H (0.72-1.25) mg/dL Glucose 139 H (70-99) mg/dL Calcium 9.3 (8.6-10.8) mg/dL AST 194 H (5-34) Units/L ALT 53 (0-55) Units/L Alkaline Phosphatase 74 (38-126) Units/L Albumin 3.4 L (3.5-5.0) g/dL Triglycerides 104 (< 150) mg/dL HDL Cholesterol 36 L (40-59) mg/dL Thyroid panel 04/28/16 Range/Units 08:00 TSH 0.472 (0.350-4.840) mcIU/mL Calcium panel 04/28/16 Range/Units 08:00 Calcium 9.3 (8.6-10.8) mg/dL Phosphorus 4.0 (2.3-4.7) mg/dL Albumin 3.4 L (3.5-5.0) g/dL Pituitary panel 04/28/16 Range/Units 08:00 Sodium 142 (136-145) mEq/L Potassium 4.4 (3.5-4.5) mEq/L Chloride 102 (98-109) mEq/L Carbon Dioxide 23 (19-29) mEq/L BUN 56 H (8-26) mg/dL Creatinine 3.02 H (0.72-1.25) mg/dL Glucose 139 H (70-99) mg/dL Calcium 9.3 (8.6-10.8) mg/dL TSH 0.472 (0.350-4.840) mcIU/mL Adrenal panel 04/28/16 Range/Units 08:00 Sodium 142 (136-145) mEq/L Potassium 4.4 (3.5-4.5) mEq/L Chloride 102 (98-109) mEq/L Carbon Dioxide 23 (19-29) mEq/L BUN 56 H (8-26) mg/dL Creatinine 3.02 H (0.72-1.25) mg/dL Glucose 139 H (70-99) mg/dL Calcium 9.3 (8.6-10.8) mg/dL Total Bilirubin 0.4 (0.2-1.2) mg/dL AST 194 H (5-34) Units/L ALT 53 (0-55) Units/L Alkaline Phosphatase 74 (38-126) Units/L Albumin 3.4 L (3.5-5.0) g/dL All other labs normal. Consult Discharge Plan - Plan Referrals: Tavares Palumbo, EVELYN [Primary Care Provider] -
--- NOTE | 2016-04-28 16:51 | ECHO - Doppler Report ---
Echo with Imaging Enhancement Agent Name: Skip Gonzalez Date of Study: 04/28/2016 Date: 1935 Ht: 71.0 in Medical Record#: [id number] Age: 81 Wt: 229.0 lb Gender: Male BSA: 2.23 Order #: [id number] Location: [facility] Room #: IC06 Reading Physician: Franca De Jesus DO Materials Scientist: Isaak Fontana RDCS Ordering Physician: Javon Dumont MD Primary Physician: None Indications: Heart FAILURE Impressions: LVEF 35%. Moderate LV systolic dysfunction with regional wall motion abnormalities (see diagram below). Indeterminate diastolic function. Normal right ventricular size and function. No significant valvular dysfunction. Lack of TR gradient to estimate RVSP. Lack of IVC collapse suggesting elevated RA filling pressures. Left Ventricular Wall Motion: Rest Echo Findings The apex, apical inferior, mid inferior, apical anterior, apical septal, mid inferior septal and apical lateral ramirez were hypokinetic. All other wall segments showed normal motion. Findings: Study Quality * Technically sub-optimal due to body habitus. ECG Findings * Sinus tachycardia. Mitral Valve * Mild mitral annular calcification * No mitral regurgitation. * Normal mitral valve structure. * No mitral stenosis. Aortic Valve * No aortic regurgitation. * Aortic valve not well visualized. * No aortic stenosis. Tricuspid Valve * Tricuspid valve not well visualized. * No tricuspid regurgitation. * Estimated RA pressure is 8 mmHg. Pulmonic Valve * Pulmonic valve is not well visualized. * No pulmonic stenosis. * No pulmonic regurgitation. Pulmonary Artery * Pulmonary artery not well visualized. Left Ventricle * Indeterminate diastolic function. * LVEF 35%. * There is no LV thrombus. * Definity echo contrast was used. Right Ventricle * Normal right ventricular structure and function. Left Atrium * Normal left atrial size. Right Atrium * Normal right atrial size. Interatrial Septum * No evidence of PFO by color Doppler. IVC * The IVC is not dilated. * < 50% respiratory change. Pericardium * There is a trivial pericardial effusion present. No tamponade. Aorta * Not well visualized. History Contrast: Definity 1.3 ml in 8.7 ml of saline 3 ml. Measurements: BP: 121/ 75 2D Normal Values RVIDd: 2.90 cm <2.7 cm LVIDd: 4.60 cm 3.7 - 5.6 cm LVPWd: 1.00 cm 0.6 - 1.1 cm LVIDs: 3.50 cm 1.5 - 3.6 cm AO: 2.60 cm < 4.0 cm LA: 2.60 cm 2.0 - 4.0cm %FS: 23.90 cm >25 % LA volume: 20 Mitral Valve Peak E:.79 m/sec Peak A:1.09 m/sec E/A Ratio:0.7 Peak E' Lat Quirino:8.19 cm/s Peak E' Med Quirino:9.26 cm/s E/E' Lat Ratio:9.6 E/E' Med Ratio:8.5 Updated by Franca De Jesus on 04/28/2016 4:43:00 PM electronically signed on 04/28/2016 4:46:09 PM with status of Final Wall Motion Lr: 1=Normal, 2=Hypokinesis, 3=Akinesis, 4=Dyskinesis, 5=Aneurysmal, 6=Hyperkinetic, X=Not Visualized (Blank)=Missing
[2016-04-28] MEDS: Budesonide/Formoterol 160/4.5 MDI IH SCH (22:13)
[2016-04-29] MEDS: *HR* LORazepam 2 MG/ML VIAL IVP SCH ×7 (00:29→21:36)
[2016-04-29] MEDS: Heparin 25,000 UNIT/500 ML D5W 25,000 UNIT/500 ML MLS IVC SCH ×3 (02:51→23:52)
[2016-04-29 03:12] LABS: Basophils % 0.1 %; Eosinophils % 0.2 %; Hematocrit 39.2 % (37.5-50.1); Hemoglobin 12.8 g/dL (12.9-16.9); Immature Granulocytes % 0.3 % (0-4); Lymphocytes # 0.8 K/mcL (0.6-4.6); Lymphocytes % 7.8 %; Mean Corpuscular HGB Conc 32.7 g/dL (31.6-35.5); Mean Platelet Volume 11.6 fL (9.4-12.4); Monocytes # 0.8 K/mcL (0.0-1.3); Monocytes % 7.8 %; Neutrophils # 8.2 K/mcL (1.6-8.9); Platelet Count 170 K/mcL (140-400); Red Cell Distribution Width 13.2 % (11.5-14.5); Segmented Neutrophils % 83.8 %
[2016-04-29 03:13] LABS: INR 1.4; Prothrombin Time 14.7 Seconds (9.4-12.1)
[2016-04-29 03:21] LABS: Albumin 2.9 g/dL (3.5-5.0); Albumin/Globulin Ratio 0.9 (1.1-2.2); Bilirubin,Total 0.5 mg/dL (0.2-1.2); Calcium 8.9 mg/dL (8.6-10.8); Globulin 3.3 g/dL (2.4-3.5); Hemoglobin A1C 5.8 %; Total Protein 6.2 g/dL (6.0-8.3)
[2016-04-29] MEDS ORDERED: Amiodarone Premix 360 MG/200 ML BAG IVC ONE (04:19)
[2016-04-29] MEDS ORDERED: Amiodarone Premix 360 MG/200 ML BAG IVC SCH (04:30)
[2016-04-29] MEDS: Ipratropium/Albuterol Neb 3 ML IH SCH ×4 (04:42→22:12)
[2016-04-29] MEDS: Nitroglycerin 25 MG/250 ML INFUS..BTL IVC SCH (07:37)
[2016-04-29] MEDS: Furosemide 40 MG/4 ML VIAL IVP SCH ×2 (08:57→17:43)
[2016-04-29] MEDS: Pantoprazole 40 MG VIAL IVPB SCH (08:57)
[2016-04-29] MEDS: Aspirin 81 MG TAB.CHEW PO SCH (08:57)
[2016-04-29] MEDS: Nystatin SUSP 5 ML UD.LIQ PO SCH ×4 (08:57→20:57)
[2016-04-29] MEDS: Budesonide/Formoterol 160/4.5 MDI IH SCH ×2 (09:24→22:12)
--- NOTE | 2016-04-29 09:44 | Urology Progress Note ---
Date of Encounter: 04/29/16 Time of Encounter: 09:42 - Assessment and Plan (1) Hematuria Current Visit: Yes Status: Acute Assessment and plan: Improving. Continue catheter for now. Hand irrigate if necessary. Progress Note Narrative: 81 year old man with a history of hematuria and IL. His urine has been clear overnight. Objective Initial Vital Signs Temp Pulse Resp BP Pulse Ox 98.9 F 117 30 125/87 100 04/28/16 05:45 04/28/16 05:45 04/28/16 05:45 04/28/16 05:45 04/28/16 05:45 - General physical appearance Present: well developed, well nourished, no distress - Respiratory Present: normal respiratory effort, other (facemask on.) - Abdomen Present: soft - Labs 04/29/16 02:28 04/29/16 02:28 Diabetes panel 04/29/16 04/29/16 Range/Units 02:28 02:28 Sodium 141 (136-145) mEq/L Potassium 4.0 (3.5-4.5) mEq/L Chloride 104 (98-109) mEq/L Carbon Dioxide 24 (19-29) mEq/L BUN 65 H (8-26) mg/dL Creatinine 3.02 H (0.72-1.25) mg/dL Glucose 99 (70-99) mg/dL Hemoglobin A1c 5.8 H ( - 5.6) % Calcium 8.9 (8.6-10.8) mg/dL AST 110 H (5-34) Units/L ALT 44 (0-55) Units/L Alkaline Phosphatase 62 (38-126) Units/L Albumin 2.9 L (3.5-5.0) g/dL Calcium panel 04/29/16 Range/Units 02:28 Calcium 8.9 (8.6-10.8) mg/dL Albumin 2.9 L (3.5-5.0) g/dL Pituitary panel 04/29/16 Range/Units 02:28 Sodium 141 (136-145) mEq/L Potassium 4.0 (3.5-4.5) mEq/L Chloride 104 (98-109) mEq/L Carbon Dioxide 24 (19-29) mEq/L BUN 65 H (8-26) mg/dL Creatinine 3.02 H (0.72-1.25) mg/dL Glucose 99 (70-99) mg/dL Calcium 8.9 (8.6-10.8) mg/dL Adrenal panel 04/29/16 Range/Units 02:28 Sodium 141 (136-145) mEq/L Potassium 4.0 (3.5-4.5) mEq/L Chloride 104 (98-109) mEq/L Carbon Dioxide 24 (19-29) mEq/L BUN 65 H (8-26) mg/dL Creatinine 3.02 H (0.72-1.25) mg/dL Glucose 99 (70-99) mg/dL Calcium 8.9 (8.6-10.8) mg/dL Total Bilirubin 0.5 (0.2-1.2) mg/dL AST 110 H (5-34) Units/L ALT 44 (0-55) Units/L Alkaline Phosphatase 62 (38-126) Units/L Albumin 2.9 L (3.5-5.0) g/dL Consult Discharge Plan - Plan Referrals: Tavares Palumbo, DRAFTING TECHNICIAN [Primary Care Provider] -
--- NOTE | 2016-04-29 10:15 | Cardiology Progress Note ---
Date of Encounter: 04/29/16 Time of Encounter: 10:13 Assessment and Plan (1) Acute coronary syndrome Current Visit: Yes Status: Acute Mr. Gonzalez presented with a recent MN which likely developed on Saturday at the time of onset of SOB. His ECG demonstrated the development of q waves suggesting recent MN and his troponin is >50. Unfortunately, his GFR is significantly reduced and is at increased risk for VANITA and requiring dialysis if LHC was performed. This was again discussed with the patient today. He expressed understanding of this risk. He would unlikely be a good candidate for LHC and has declined proceeding given concern for VANITA. I recommend Nephrology evaluation and input as well. Otherwise, his urine has cleared. We will continue heparin for now and consider introduction of plavix for medical therapy. He is also on statin. NTG drip can be stopped. (2) Atrial fibrillation Current Visit: Yes Status: Acute Patient developed AF overnight and was started on Amio gtt. He is now back in NSR. I recommend stopping amiodarone. We will start him on low dose BB ( records document allergy but patient has been tolerant during his stay). Qualifiers: Atrial fibrillation type: unspecified Qualified Code(s): I48.91 - Unspecified atrial fibrillation (3) Systolic heart failure Current Visit: Yes Status: Acute I reviewed the echo images documenting EF 35% with SWMA. He is still requiring supplemental oxygen and BNP has elevated. His I/O is only net negative 961mL. I recommend continuing IV lasix 40mg BID. We will give him an extra dose today. Check CXR. Incentive spirometer. He has an allergy to beta blockers. However, when speaking with the patient it appears it is not a true allergy but rather a side effect of possibly hypotension. He is not describing anaphylaxis. He tolerated a dose of BB since admission. We will start at low dose. Hold off on introducing ACEI due to renal dysfunction. Qualifiers: Heart failure chronicity: acute Qualified Code(s): I50.21 - Acute systolic (congestive) heart failure Discussion w patient/family: The assessment and plan as outlined above was discussed with the patient and/or family members who expressed understanding and agreement. All questions were answered. Thank you for involving us in the care of your patient. Please call with any questions. Subjective Principal diagnosis: ACS Interval history: Mr. Gonzalez has no new complaints this morning. He continues to deny chest pain. He does complain of some chest congestion and cough. Objective Vital Signs, Last 4 Hours Temp Pulse Resp BP Pulse Ox 04/29/16 09:00 85 24 111/58 99 04/29/16 08:01 97.2 F L 04/29/16 08:00 89 21 121/64 100 04/29/16 07:00 89 General: Conversant, No Apparent Distress HEENT: Mucus Membranes Moist Cardiac: Reg Rate and Rhythm, Normal S1 and S2, No Murmur Lungs: Other (diminished breath sounds at bases) Neuro: Alert and responsive, No focal deficits noted Abdomen: Soft, Non-Tender, Other (audible bowel sounds) Extremities: Other (no significant LE edema) Results 04/29/16 02:28 04/29/16 02:28 Lab Results 04/28/16 04/28/16 04/29/16 14:07 20:24 02:28 WBC 9.8 Hgb 12.8 L Hct 39.2 Plt Count 170 INR APTT 47.4 H 74.8 H D Sodium Potassium Chloride Carbon Dioxide BUN Creatinine Glucose Calcium Total Bilirubin AST ALT Alkaline Phosphatase B-Natriuretic Peptide 04/29/16 04/29/16 04/29/16 02:28 02:28 02:28 WBC Hgb Hct Plt Count INR 1.4 APTT 77.0 H Sodium 141 Potassium 4.0 Chloride 104 Carbon Dioxide 24 BUN 65 H Creatinine 3.02 H Glucose 99 Calcium 8.9 Total Bilirubin 0.5 AST 110 H ALT 44 Alkaline Phosphatase 62 B-Natriuretic Peptide 2025 H - Imaging and Cardiology Echo: image reviewed - EKG Interpretation EKG results cardiology: other (Telemetry overnight documents periods of AF) Consult Discharge Plan - Plan Referrals: Tavares Palumbo, VACUUM METALIZER OPERATOR [Primary Care Provider] -
--- NOTE | 2016-04-29 11:00 | Pulmonology Progress Note ---
<Garland Polanco - Last Filed: 04/29/16 16:15> Date of Encounter: 04/29/16 Time of Encounter: 08:30 Assessment and Plan (1) Acute coronary syndrome Current Visit: Yes Status: Acute Patient reports several days worsening shortness of breath and exertional dyspnea prior to presentation to the hospital. Found to have troponins > 50.0 at admission, no ST elevations noted on EKG. Previously started on heparin drip , nitro drip. Given patient's serum creatinine of 3.02, there is concern for contrast-induced nephropathy if patient were to undergo catheterization. Appreciate manager animal recommendation for continued management/care We will consult nephrology regard to patient kidney function in regard to potential catheterization and patient will likely need continued territory sales representative care given his stable CKD We will stop patient nitroglycerin drip, continue sublingual nitroglycerin as needed for chest pain/discomfort Patient amiodarone drip stopped last night/this morning after conversion of heart rate to sinus rhythm (2) NSTEMI (non-ST elevated myocardial infarction) Current Visit: Yes Status: Acute Plan as above (3) Acute decompensated heart failure Current Visit: Yes Status: Acute Given patient shortness of breath, concerning for decompensation of patient known heart failure. We will continue oxygen supplementation as needed and will continue with diuresis (4) Acute respiratory failure Current Visit: Yes Status: Acute Patient maintaining adequate oxygen saturation on nasal cannula, continue supplemental oxygen as needed by patient Continue supplemental oxygen as needed, wean as tolerated Continue to monitor via continuous pulse ox Continue diuresis Qualifiers: Respiratory failure complication: hypoxia Qualified Code(s): J96.01 - Acute respiratory failure with hypoxia (5) CKD (chronic kidney disease) Current Visit: Yes Status: Chronic Patient has significant renal disease, creatinines in hospital up in 3.02. He notes he has kidney disease, but does not see a territory sales representative. His current kidney function is concerning given the potential need for cardiac catheterization. We will consult nephrology, appreciate recommendations for continued management/ care We will avoid potentially nephrotoxic agents Continue to monitor via daily labs Qualifiers: Chronic kidney disease stage: unspecified stage Qualified Code(s): N18.9 - Chronic kidney disease, unspecified (6) Hematuria Current Visit: Yes Status: Acute Patient appeared to have blood coming out of his urethra, with Wright in place. There is concern for hematuria given Wright and heparin drip. He has since stopped but denied blood is noticed around his penis. We will consult urology to assist with potential hematuria and/or Wright placement We will continue to monitor CBC for potential drop in hemoglobin (7) DVT prophylaxis Current Visit: Yes Status: Acute GI prophylaxis: Pantoprazole DVT prophylaxis: Heparin drip Neuro/sedation: No concerns at this time Cardiovascular: NSTEMI, CHF. Cardiology involved, potential need for catheterization but there are concerns given patient renal function. On heparin drip for ACS. A. fib with RVR developed last night, successfully converted with amiodarone drip, amiodarone drip since stopped. We will continue monitor via telemetry Pulmonary: Patient complains of exertional dyspnea, shortness of breath. Known history of COPD on several inhalers at home. Will continue patient inhalers and supplement O2 as needed by patient GI: Stress ulcer prophylaxis with pantoprazole Renal: Stable kidney disease, nephrology has been consulted to help assess kidney function in the setting of the potential catheterization Heme: DVT prophylaxis with heparin drip Endocrine: No concerns at this time : Hematuria around Wright catheter. Urology is consulted to help assess for continued hematuria and need for potential Wright replacement/care CODE STATUS: Full code Subjective Principal diagnosis: And 70 Interval history: Patient continues to have no chest pain and only complains of shortness of breath when moving. He has no complaints of nausea, diaphoresis, fever, or abdominal pain. Objective PUL Vital signs: Last Vital Signs Temp 97.2 F L 04/29/16 08:01 Pulse 85 04/29/16 09:00 Resp 24 04/29/16 09:00 BP 111/58 04/29/16 09:00 Pulse Ox 99 04/29/16 09:00 Constitutional: No acute distress, alert, comfortable appearing EENT: Sclera nonicteric, noninjected, neck supple Respiratory: Respirations nonlabored, bilateral rhonchi and rales auscultated Cardiovascular: Regular rate and rhythm, no murmurs/rubs/gallops appreciated Gastrointestinal: Normoactive bowel sounds, soft, nontender, nondistended, no guarding or rebound Integumentary: No erythema, no rashes, no pallor appreciated Extremities: No cyanosis, no edema, no clubbing, pink and warm, pulses present and equal bilaterally Musculoskeletal: No deformities Neurologic: Normal mental status Psychiatric normal mood, normal affect Results - Laboratory Findings CBC and BMP: 04/29/16 02:28 04/29/16 02:28 ABG ABG pH 7.42 pH Units (7.32-7.45) 04/28/16 08:13 ABG pCO2 45 mmHg (35-45) 04/28/16 08:13 ABG pO2 164 mmHg (85-104) H 04/28/16 08:13 ABG O2 Saturation 99 % (95-98) H 04/28/16 08:13 PT/INR, D-dimer PT 14.7 Seconds (9.4-12.1) H 04/29/16 02:28 Abnormal lab findings: Abnormal lab results RBC 4.00 M/mcL (4.19-5.50) L 04/29/16 02:28 Hgb 12.8 g/dL (12.9-16.9) L 04/29/16 02:28 PT 14.7 Seconds (9.4-12.1) H 04/29/16 02:28 APTT 77.0 Seconds (26.0-36.0) H 04/29/16 02:28 ABG pO2 164 mmHg (85-104) H 04/28/16 08:13 ABG HCO3 29.2 mEQ/L (21-27) H 04/28/16 08:13 ABG Total CO2 30.6 mEq/L (20-26) H 04/28/16 08:13 ABG O2 Saturation 99 % (95-98) H 04/28/16 08:13 ABG Base Excess 4.0 mEq/L (-2.0 to 3.0) H 04/28/16 08:13 BUN 65 mg/dL (8-26) H 04/29/16 02:28 Creatinine 3.02 mg/dL (0.72-1.25) H 04/29/16 02:28 Est GFR ( Amer) 24 (> 60) L 04/29/16 02:28 Est GFR (Non-Af Amer) 20 (> 60) L 04/29/16 02:28 POC Glucose 140 (58-89) H 04/28/16 18:55 Hemoglobin A1c 5.8 % (-5.6) H 04/29/16 02:28 Calculated Osmolality 311 (280-300) H 04/29/16 02:28 AST 110 Units/L (5-34) H 04/29/16 02:28 Troponin I > 50.00 ng/mL (0-0.03) H* 04/28/16 08:00 B-Natriuretic Peptide 2025 pg/mL (0-100) H 04/29/16 02:28 Albumin 2.9 g/dL (3.5-5.0) L 04/29/16 02:28 Albumin/Globulin Ratio 0.9 (1.1-2.2) L 04/29/16 02:28 LDL Cholesterol, Calc 124 mg/dL (0-99) H 04/28/16 08:00 HDL Cholesterol 36 mg/dL (40-59) L 04/28/16 08:00 Cholesterol/HDL Ratio 5.0 (0-4.9) H 04/28/16 08:00 Ur Specimen Adequacy See below A 04/28/16 08:32 Urine Color Red (Yellow) A 04/28/16 08:32 Urine Clarity Cloudy (Clear) A 04/28/16 08:32 Urine Protein 100 mg/dL (Neg-Trace) H 04/28/16 08:32 Urine Ketones Trace mg/dL (Negative) H 04/28/16 08:32 Urine Blood Large (Negative) H 04/28/16 08:32 Ur Leukocyte Esterase Small (Negative) H 04/28/16 08:32 - Microbiology Findings Microbiology Findings: Microbiology, Last 48 Hours 04/28/16 06:55 Sputum Culture - Final Sputum - Clinical Findings Intake & Output: Intake & Output 04/28/16 04/29/16 04/29/16 23:59 07:59 15:59 Intake Total 292 / 292 372 / 372 371 / 371 Output Total 150 / 150 Balance 292 / 292 372 / 372 221 / 221 Consult Discharge Plan - Plan Referrals: Tavares Palumbo, GLAZING SUPERINTENDENT [Primary Care Provider] - <Cris Velarde - Last Filed: 04/29/16 19:48> Date of Encounter: 04/29/16 Assessment and Plan (1) Acute coronary syndrome Current Visit: Yes Status: Acute (2) Acute decompensated heart failure Current Visit: Yes Status: Acute (3) Acute respiratory failure Current Visit: Yes Status: Acute Qualifiers: Respiratory failure complication: hypoxia Qualified Code(s): J96.01 - Acute respiratory failure with hypoxia (4) Hematuria Current Visit: Yes Status: Acute (5) NSTEMI (non-ST elevated myocardial infarction) Current Visit: Yes Status: Acute (6) CKD (chronic kidney disease) Current Visit: Yes Status: Chronic Qualifiers: Chronic kidney disease stage: unspecified stage Qualified Code(s): N18.9 - Chronic kidney disease, unspecified Objective PUL Vital signs: Last Vital Signs Temp 98.1 F 04/29/16 16:03 Pulse 91 04/29/16 18:00 Resp 22 04/29/16 18:00 BP 103/53 04/29/16 18:00 Pulse Ox 100 04/29/16 18:00 Results - Laboratory Findings CBC and BMP: 04/29/16 02:28 04/29/16 02:28 ABG ABG pH 7.42 pH Units (7.32-7.45) 04/28/16 08:13 ABG pCO2 45 mmHg (35-45) 04/28/16 08:13 ABG pO2 164 mmHg (85-104) H 04/28/16 08:13 ABG O2 Saturation 99 % (95-98) H 04/28/16 08:13 PT/INR, D-dimer PT 14.7 Seconds (9.4-12.1) H 04/29/16 02:28 Abnormal lab findings: Abnormal lab results RBC 4.00 M/mcL (4.19-5.50) L 04/29/16 02:28 Hgb 12.8 g/dL (12.9-16.9) L 04/29/16 02:28 PT 14.7 Seconds (9.4-12.1) H 04/29/16 02:28 APTT 77.0 Seconds (26.0-36.0) H 04/29/16 02:28 ABG pO2 164 mmHg (85-104) H 04/28/16 08:13 ABG HCO3 29.2 mEQ/L (21-27) H 04/28/16 08:13 ABG Total CO2 30.6 mEq/L (20-26) H 04/28/16 08:13 ABG O2 Saturation 99 % (95-98) H 04/28/16 08:13 ABG Base Excess 4.0 mEq/L (-2.0 to 3.0) H 04/28/16 08:13 BUN 65 mg/dL (8-26) H 04/29/16 02:28 Creatinine 3.02 mg/dL (0.72-1.25) H 04/29/16 02:28 Est GFR ( Amer) 24 (> 60) L 04/29/16 02:28 Est GFR (Non-Af Amer) 20 (> 60) L 04/29/16 02:28 POC Glucose 140 (58-89) H 04/28/16 18:55 Hemoglobin A1c 5.8 % (-5.6) H 04/29/16 02:28 Calculated Osmolality 311 (280-300) H 04/29/16 02:28 AST 110 Units/L (5-34) H 04/29/16 02:28 Troponin I > 50.00 ng/mL (0-0.03) H* 04/28/16 08:00 B-Natriuretic Peptide 2025 pg/mL (0-100) H 04/29/16 02:28 Albumin 2.9 g/dL (3.5-5.0) L 04/29/16 02:28 Albumin/Globulin Ratio 0.9 (1.1-2.2) L 04/29/16 02:28 LDL Cholesterol, Calc 124 mg/dL (0-99) H 04/28/16 08:00 HDL Cholesterol 36 mg/dL (40-59) L 04/28/16 08:00 Cholesterol/HDL Ratio 5.0 (0-4.9) H 04/28/16 08:00 Ur Specimen Adequacy See below A 04/28/16 08:32 Urine Color Red (Yellow) A 04/29/16 16:00 Urine Clarity Turbid (Clear) A 04/29/16 16:00 Urine Protein 30 mg/dL (Neg-Trace) H 04/29/16 16:00 Urine Blood Large (Negative) H 04/29/16 16:00 Ur Leukocyte Esterase Large (Negative) H 04/29/16 16:00 Urine Microscopic RBC TNTC per hpf (0-3) H 04/29/16 16:00 Urine Microscopic WBC 15-30 per hpf (0-3) H 04/29/16 16:00 Ur Squamous Epith Cells Many per lpf (None-Few) H 04/29/16 16:00 Ur Culture Indicated? YES (NO) A 04/29/16 16:00 Microalb/Creat Ratio 61 (0-30) H 04/29/16 17:04 Protein/Creatinin Ratio 0.21 mg/mg (0-0.20) H 04/29/16 17:04 Urine Total Protein 15 mg/dL (1-14) H 04/29/16 17:04 - Microbiology Findings Microbiology Findings: Microbiology, Last 48 Hours 04/28/16 06:55 Sputum Culture - Final Sputum - Clinical Findings Intake & Output: Intake & Output 04/29/16 04/29/16 04/29/16 07:59 15:59 23:59 Intake Total 372 / 372 611 / 611 240 / 240 Output Total 150 / 150 325 / 325 Balance 372 / 372 461 / 461 -85 / -85 - Attending Attestation I examined this patient and my medical decision-making was reviewed with the BASKETBALL SCOUT/PA/Advanced Practice Nurse/Resident Physician. I agree with the documented findings, disposition and treatment plan as described except to the extent set forth below. Patient seen and examined with the resident and all the labs and images are reviewed. Patient is able to be off the NIV, however he still have evidence of systolic heart failure with decompensation. Discussed with manager animal and still due to his renal function, no plan for cardiac cath. Nephrology consulted. Patient had A. fib and he was on Amiodarone which converted patient to sinus now and no evidence of hematuria now. Patient still prefer to be treated medically due to his renal function. Patient feels breathing is better with bronchodilators, however his examine of chest examine remain abnormal from his copd and pulmonary edema. Patient to stay in ICU for now.
[2016-04-29] MEDS ORDERED: Furosemide 40 MG/4 ML VIAL IVP ONE (11:58)
--- NOTE | 2016-04-29 13:06 | Nephrology Consult Note ---
Date of Encounter: 04/29/16 Time of Encounter: 13:06 Assessment and Plan (1) CKD (chronic kidney disease) Current Visit: Yes Status: Chronic Patient with CKD based off of his history. Possibly Stage 4 given that he was told he had 26% remaining kidney function. Will request records from her PCP to assess his baseline renal function. He currently has an eGFR of 20 and his renal function may be close to his baseline. If this is the case he is at relatively high risk of requiring renal replacement therapy after dye exposure. This can be minimized by appropriate hydration and minimizing nephrotoxins prior to dye exposure. Will see where his renal function trends tomorrow. Avoid aggressive diuresis unless needed for respiratory function. Will initate CKD work-up. Patient requesting CAPD if AUTO HAULER is needed. Will need to check with surgery to see if an acute CAPD catheter is possible. Patient is willing to proceed with HD if needed. Will request records from Primary care and records regarding his aneurysm repair at [facility]. Qualifiers: Chronic kidney disease stage: unspecified stage Qualified Code(s): N18.9 - Chronic kidney disease, unspecified (2) Acute respiratory failure Current Visit: Yes Status: Acute Patient requiring Bipap occasionally for respiratory support. Pulmonary consulted. Caution with diuresis given CKD and unclear as to whether or not he has ZECHARIAH. Qualifiers: Respiratory failure complication: hypoxia Qualified Code(s): J96.01 - Acute respiratory failure with hypoxia (3) NSTEMI (non-ST elevated myocardial infarction) Current Visit: Yes Status: Acute No active chest pain. Greatly elevated troponin. Cardiology following. Anticipate cardiac cath when medically optimized. (4) Hypertension Current Visit: Yes Status: Chronic Permissive hypertension for now. Avoid nephrotoxins. Agree with holding SHIELA- I until renal function stabilizes and after dye exposure. Qualifiers: Qualified Code(s): I10 - Essential (primary) hypertension History of Present Illness - Reason for Consult Consult date: 04/29/16 Acute Kidney Injury, Chronic Kidney Disease - Chief Complaint ZECHARIAH vs CKD - History of Present Illness Mr. Gonzalez is an 81 yo man with a history of hypertension and aneurysm s/p repair and CKD who presents as a transfer from [facility] for acute [place]. He reports having dyspnea, but no chest pain prior to presenting at [facility]. His dyspnea is better with Bipap, but he is tolerating nasal cannula at the time of my evaluation. He reports a history of kidney disease, but he has not yet seen a lap regulator. He last recalls his PCP Dr. Dow telling him he was at "26%" kidney function. He would like to utilize CAPD if he needs renal replacement therapy. He reports that he and his took care of his mother who was on cAPD for 10 years. Past Med Surg Social Fam HX - Past Medical History Medical history: COPD, hyperlipidemia, hypertension, renal disease - Social History Smoking Status: Former smoker Smokeless Tobacco Status: No Alcohol use: none Drug use: none Medications and Allergies Aspirin [Ecotrin] 325 mg PO DAILY 04/27/16 [History] Cholecalciferol (Vitamin D3) [Vitamin D] 50,000 unit PO QWEEK 04/27/16 [History] Ciprofloxacin HCl [Cipro] 500 mg PO BID 04/27/16 [History] Diltiazem HCl [Diltiazem ER] 180 mg PO BID 04/27/16 [History] Fluticasone/Salmeterol [Advair 250-50 Diskus] 1 puff IH BID 04/27/16 [History] Furosemide [Lasix] 40 mg PO DAILY 04/27/16 [History] Ipratropium/Albuterol Neb [Duoneb] 3 ml IH Q6HR 04/27/16 [History] Lisinopril [Zestril] 20 mg PO QPM 04/27/16 [History] Pravastatin Sodium [Pravachol] 80 mg PO DAILY 04/27/16 [History] Tamsulosin HCl [Flomax] 0.4 mg PO DAILY 04/27/16 [History] Vitamin B Complex [B Complex] 1 tab PO DAILY 04/27/16 [History] Lisinopril [Zestril] 10 mg PO QAM 04/28/16 [History] Zolpidem [Ambien] 5 mg PO HS 04/28/16 [History] Allergies Beta-Blockers (Beta-Adrenergic Bloc Adverse Reaction (Verified 04/27/16 23:50) See Comments SYNCOPAL EPISODE codeine Adverse Reaction (Verified 04/27/16 23:50) Nausea Review of Systems All Systems: reviewed and no additional remarkable complaints except as stated ( as documented in the HPI.) Exam - Vital Signs Vital signs: Initial Vital Signs Temp Pulse Resp BP Pulse Ox 98.9 F 117 30 125/87 100 04/28/16 05:45 04/28/16 05:45 04/28/16 05:45 04/28/16 05:45 04/28/16 05:45 Vital Signs - Last 8 Hours Temp Pulse Resp BP Pulse Ox 04/29/16 10:00 82 22 112/62 100 04/29/16 09:00 85 24 111/58 99 04/29/16 08:01 97.2 F L 04/29/16 08:00 89 21 121/64 100 04/29/16 07:00 89 04/29/16 06:00 126 18 87/58 100 Intake and Output 04/28/16 04/29/16 04/29/16 23:59 07:59 15:59 Intake Total 292 / 292 372 / 372 371 / 371 Output Total 150 / 150 Balance 292 / 292 372 / 372 221 / 221 Intake: IV Fluids 172 / 172 372 / 372 371 / 371 Amiodarone 360mg/200mL 200 / 200 Drip Premix 360 mg In 200 ml @ 1 MG/MIN 33.333 mls /hr IVC ONCE ONE Rx#: [id number] Heparin 25,000 UNIT/500 172 / 172 372 / 372 ML D5W 25,000 unit In 500 ml @ 9.65 UNITS/KG/HR 20 .072 mls/hr IVC .Q24H ON LICENSE OF [facility] Rx#:[id number] Nitroglycerin 25 mg In 171 / 171 250 ml @ 5 MCG/MIN 3 mls/ hr IVC .Q24H ON LICENSE OF [facility] Rx#: [id number] Oral 120 / 120 Output: Catheter 150 / 150 Other: Meal Dinner Percent of Meal Consumed 25% Blood Glucose* 140 - General Appearance General appearance: well-developed, well-nourished EENT: ATNC Neck: supple Respiratory: course breath sounds, rhonchi Cardiology: no edema, regular rate, regular rhythm Gastrointestinal: normoactive bowel sounds, no tenderness, no guarding Integumentary: warm and dry Neurologic: alert and oriented x3 Musculoskeletal: no cyanosis Psychiatric: mood/affect appropriate Results - Lab Results 04/29/16 02:28 04/29/16 02:28 Most recent lab results ABG pH 7.42 pH Units (7.32-7.45) 04/28/16 08:13 ABG pCO2 45 mmHg (35-45) 04/28/16 08:13 ABG pO2 164 mmHg (85-104) H 04/28/16 08:13 ABG HCO3 29.2 mEQ/L (21-27) H 04/28/16 08:13 ABG O2 Saturation 99 % (95-98) H 04/28/16 08:13 Calcium 8.9 mg/dL (8.6-10.8) 04/29/16 02:28 Phosphorus 4.0 mg/dL (2.3-4.7) 04/28/16 08:00 Magnesium 2.1 mg/dL (1.6-2.6) 04/28/16 08:00 Consult Discharge Plan - Plan Referrals: Tavares Palumbo, DIESEL MECHANIC [Primary Care Provider] -
[2016-04-29 16:44] LABS: Bilirubin,Urine Negative (Negative); Blood,Urine Large (Negative); Clarity,Urine Turbid (Clear); Color,Urine Red (Yellow); Glucose,Urine (UA) Normal (Normal); Ketones,Urine Negative (Negative); Leukocyte Esterase,Urine Large (Negative); Nitrite,Urine Negative (Negative); PH,Urine 5.5 pH Units (5.0-8.0); Protein,Urine 30 mg/dL (Neg-Trace); Specific Gravity,Urine 1.013 (1.010-1.025); Urobilinogen,Urine Normal (Normal)
[2016-04-29 16:47] LABS: Bacteria,Urine None Seen per hpf (None-Few); Squamous Epithelial Cell,Urine Many per lpf (None-Few); WBC,Urine 15-30 per hpf (0-3)
[2016-04-29 17:01] LABS: RBC,Urine TNTC per hpf (0-3)
[2016-04-29 17:25] LABS: Protein/Creatinine Ratio,Urine 0.21 mg/mg (0-0.20)
[2016-04-30] MEDS: *HR* LORazepam 2 MG/ML VIAL IVP SCH ×4 (00:10→14:39)
[2016-04-30 03:10] LABS: Basophils % 0.3 %; Eosinophils # 0.1 K/mcL (0.0-0.6); Eosinophils % 0.8 %; Hematocrit 36.5 % (37.5-50.1); Immature Granulocytes % 0.6 % (0-4); Immature Platelets 7.3 % (1.1-6.1); Lymphocytes # 0.7 K/mcL (0.6-4.6); Lymphocytes % 10.2 %; Mean Corpuscular HGB Conc 32.9 g/dL (31.6-35.5); Mean Corpuscular Volume 97.3 fL (83.0-100.0); Monocytes # 0.6 K/mcL (0.0-1.3); Monocytes % 9.4 %; Platelet Count 138 K/mcL (140-400); Red Blood Count 3.75 M/mcL (4.19-5.50); Red Cell Distribution Width 13.3 % (11.5-14.5); Segmented Neutrophils % 78.7 %
[2016-04-30 03:13] LABS: INR 1.3; Prothrombin Time 14.5 Seconds (9.4-12.1)
[2016-04-30 03:25] LABS: Albumin 2.7 g/dL (3.5-5.0); Calcium 8.3 mg/dL (8.6-10.8); Phosphorous 5.4 mg/dL (2.3-4.7); Potassium 4.5 mEq/L (3.5-4.5); Uric Acid 15.9 mg/dL (3.5-7.2)
[2016-04-30] MEDS: Ipratropium/Albuterol Neb 3 ML IH SCH ×3 (03:45→22:07)
[2016-04-30] MEDS: Pantoprazole 40 MG VIAL IVPB SCH (08:02)
[2016-04-30] MEDS: Nystatin SUSP 5 ML UD.LIQ PO SCH ×4 (08:02→20:50)
[2016-04-30] MEDS: Furosemide 40 MG/4 ML VIAL IVP SCH (08:02)
[2016-04-30] MEDS: Aspirin 81 MG TAB.CHEW PO SCH (08:03)
--- NOTE | 2016-04-30 08:41 | Pulmonology Progress Note ---
<Corey Blank - Last Filed: 04/30/16 08:35> Date of Encounter: 04/30/16 Time of Encounter: 08:36 Assessment and Plan (1) Acute coronary syndrome Current Visit: Yes Status: Acute Patient reported several days worsening shortness of breath and exertional dyspnea prior to presentation to the hospital. Found to have troponins > 50.0 at admission, no ST elevations noted on EKG. Previously started on heparin drip , nitro drip. Given patient's serum creatinine of 3.02>3.18, there is concern for contrast-induced nephropathy if patient were to undergo catheterization. Appreciate handbag finisher recommendation for continued management/care Nephrology consulted with regard to patient kidney function in setting of potential catheterization and patient will likely need continued gauge and weigh machine adjuster care given his stable CKD. Nitroglycerin drip discontinued, continue sublingual nitroglycerin as needed for chest pain/discomfort Amiodarone drip for A fb with RVR discontinued yesterday after conversion of heart rate to sinus rhythm (2) NSTEMI (non-ST elevated myocardial infarction) Current Visit: Yes Status: Acute Plan as above. (3) Acute decompensated heart failure Current Visit: Yes Status: Acute Given patient shortness of breath, concerning for decompensation of patient known heart failure. We will continue oxygen supplementation as needed and will continue with diuresis. (4) Acute respiratory failure Current Visit: Yes Status: Acute Patient maintaining adequate oxygen saturation on nasal cannula, continue supplemental oxygen as needed by patient Continue supplemental oxygen as needed, wean as tolerated Continue to monitor via continuous pulse ox Continue diuresis (carefully in setting of worsening kidney function). Qualifiers: Respiratory failure complication: hypoxia Qualified Code(s): J96.01 - Acute respiratory failure with hypoxia (5) CKD (chronic kidney disease) Current Visit: Yes Status: Chronic Patient has significant renal disease, Cr 3.02 ->3.18 today. He notes he has kidney disease, but does not see a gauge and weigh machine adjuster. His current kidney function is concerning given the potential need for cardiac catheterization. Nephrology consulted, pending renal ultrasound. We will avoid potentially nephrotoxic agents Continue to monitor via daily labs Qualifiers: Chronic kidney disease stage: unspecified stage Qualified Code(s): N18.9 - Chronic kidney disease, unspecified (6) Hematuria Current Visit: Yes Status: Acute Hematuria noted yesterday around Iqbal catheter. Urology was consulted, recommended continuing iqbal catheter with hand irrigation if necessary. (7) DVT prophylaxis Current Visit: Yes Status: Acute GI prophylaxis: Pantoprazole DVT prophylaxis: Heparin drip Neuro/sedation: No concerns at this time Cardiovascular: NSTEMI, CHF. Cardiology involved, potential need for catheterization but there are concerns given patient renal function. On heparin drip for ACS. A. fib with RVR was successfully converted with amiodarone drip, amiodarone drip since stopped. Continue monitor via telemetry. Pulmonary: Patient complains of exertional dyspnea, shortness of breath. Known history of COPD on several inhalers at home. Will continue patient inhalers and supplement O2 as needed by patient GI: Stress ulcer prophylaxis with pantoprazole Renal: Worsening kidney disease, nephrology consulted to help assess kidney function in the setting of the potential catheterization. Heme: DVT prophylaxis with heparin drip Endocrine: No concerns at this time : Hematuria yesterday around Iqbal catheter. Urology consulted recommending continued iqbal catheter. CODE STATUS: Full code Subjective Principal diagnosis: ACS Interval history: Patient denies any chest pain, states he has continued shortness of breath that may be slightly better than yesterday. He is currently drinking coffee, denies any difficulties swallowing, but states he does not have an appetite. Objective PUL Vital signs: Last Vital Signs Temp 98.2 F 04/30/16 07:28 Pulse 88 04/30/16 08:00 Resp 20 04/30/16 08:00 BP 138/64 04/30/16 08:00 Pulse Ox 96 04/30/16 08:00 General appearance: no acute distress, alert Eyes: nonicteric ENT: oropharynx moist Neck: supple Effort: normal Auscultation: bilateral: wheezes (R>L), rhonchi (R>L) Cardiovascular: other (tachycardia) Gastrointestinal: normoactive bowel sounds, non-tender, other (distended, but soft) Integumentary: normal, other (pretiial dermatitis,scaling.) Extremities: no cyanosis, no edema, no clubbing, other (capillary refill >2 sec) Musculoskeletal: no deformities normal mental status, non-focal exam mood appropriate Results - Laboratory Findings CBC and BMP: 04/30/16 02:35 04/30/16 02:35 ABG ABG pH 7.42 pH Units (7.32-7.45) 04/28/16 08:13 ABG pCO2 45 mmHg (35-45) 04/28/16 08:13 ABG pO2 164 mmHg (85-104) H 04/28/16 08:13 ABG O2 Saturation 99 % (95-98) H 04/28/16 08:13 PT/INR, D-dimer PT 14.5 Seconds (9.4-12.1) H 04/30/16 02:35 Abnormal lab findings: Abnormal lab results RBC 3.75 M/mcL (4.19-5.50) L 04/30/16 02:35 Hgb 12.0 g/dL (12.9-16.9) L 04/30/16 02:35 Hct 36.5 % (37.5-50.1) L 04/30/16 02:35 Plt Count 138 K/mcL (140-400) L 04/30/16 02:35 Immature Plt Fraction 7.3 % (1.1-6.1) H 04/30/16 02:35 PT 14.5 Seconds (9.4-12.1) H 04/30/16 02:35 APTT 72.4 Seconds (26.0-36.0) H 04/30/16 02:35 ABG pO2 164 mmHg (85-104) H 04/28/16 08:13 ABG HCO3 29.2 mEQ/L (21-27) H 04/28/16 08:13 ABG Total CO2 30.6 mEq/L (20-26) H 04/28/16 08:13 ABG O2 Saturation 99 % (95-98) H 04/28/16 08:13 ABG Base Excess 4.0 mEq/L (-2.0 to 3.0) H 04/28/16 08:13 Carbon Dioxide 18 mEq/L (19-29) L 04/30/16 02:35 BUN 74 mg/dL (8-26) H 04/30/16 02:35 Creatinine 3.18 mg/dL (0.72-1.25) H 04/30/16 02:35 Est GFR ( Amer) 23 (> 60) L 04/30/16 02:35 Est GFR (Non-Af Amer) 19 (> 60) L 04/30/16 02:35 POC Glucose 140 (58-89) H 04/28/16 18:55 Hemoglobin A1c 5.8 % (-5.6) H 04/29/16 02:28 Calculated Osmolality 303 (280-300) H 04/30/16 02:35 Uric Acid 15.9 mg/dL (3.5-7.2) H 04/30/16 02:35 Calcium 8.3 mg/dL (8.6-10.8) L 04/30/16 02:35 Phosphorus 5.4 mg/dL (2.3-4.7) H 04/30/16 02:35 AST 110 Units/L (5-34) H 04/29/16 02:28 Troponin I > 50.00 ng/mL (0-0.03) H* 04/28/16 08:00 B-Natriuretic Peptide 2025 pg/mL (0-100) H 04/29/16 02:28 Albumin 2.7 g/dL (3.5-5.0) L 04/30/16 02:35 Albumin/Globulin Ratio 0.9 (1.1-2.2) L 04/29/16 02:28 LDL Cholesterol, Calc 124 mg/dL (0-99) H 04/28/16 08:00 HDL Cholesterol 36 mg/dL (40-59) L 04/28/16 08:00 Cholesterol/HDL Ratio 5.0 (0-4.9) H 04/28/16 08:00 Vitamin B12 > 2000 pg/mL (213-816) H 04/30/16 02:35 PTH Intact 250.8 pg/ml (8.5-72.5) H 04/30/16 02:35 Ur Specimen Adequacy See below A 04/28/16 08:32 Urine Color Red (Yellow) A 04/29/16 16:00 Urine Clarity Turbid (Clear) A 04/29/16 16:00 Urine Protein 30 mg/dL (Neg-Trace) H 04/29/16 16:00 Urine Blood Large (Negative) H 04/29/16 16:00 Ur Leukocyte Esterase Large (Negative) H 04/29/16 16:00 Urine Microscopic RBC TNTC per hpf (0-3) H 04/29/16 16:00 Urine Microscopic WBC 15-30 per hpf (0-3) H 04/29/16 16:00 Ur Squamous Epith Cells Many per lpf (None-Few) H 04/29/16 16:00 Ur Culture Indicated? YES (NO) A 04/29/16 16:00 Microalb/Creat Ratio 61 (0-30) H 04/29/16 17:04 Protein/Creatinin Ratio 0.21 mg/mg (0-0.20) H 04/29/16 17:04 Urine Total Protein 15 mg/dL (1-14) H 04/29/16 17:04 - Microbiology Findings Microbiology Findings: Microbiology, Last 48 Hours 04/28/16 06:55 Sputum Culture - Final Sputum - Clinical Findings Intake & Output: Intake & Output 04/29/16 04/30/16 04/30/16 23:59 07:59 15:59 Intake Total 696 / 696 107 / 107 Output Total 1025 / 1025 675 / 675 Balance -329 / -329 -568 / -568 Weight 82.69 kg Consult Discharge Plan - Plan Referrals: Tavares Palumbo, TRAVELING PHLEBOTOMIST [Primary Care Provider] - <Yaron Monsivais - Last Filed: 04/30/16 14:13> Date of Encounter: 04/30/16 Objective PUL Vital signs: Last Vital Signs Temp 97.7 F 04/30/16 11:00 Pulse 90 04/30/16 13:00 Resp 18 04/30/16 13:00 BP 125/63 04/30/16 13:00 Pulse Ox 97 04/30/16 13:00 Results - Laboratory Findings CBC and BMP: 04/30/16 02:35 04/30/16 02:35 ABG ABG pH 7.42 pH Units (7.32-7.45) 04/28/16 08:13 ABG pCO2 45 mmHg (35-45) 04/28/16 08:13 ABG pO2 164 mmHg (85-104) H 04/28/16 08:13 ABG O2 Saturation 99 % (95-98) H 04/28/16 08:13 PT/INR, D-dimer PT 14.5 Seconds (9.4-12.1) H 04/30/16 02:35 Abnormal lab findings: Abnormal lab results RBC 3.75 M/mcL (4.19-5.50) L 04/30/16 02:35 Hgb 12.0 g/dL (12.9-16.9) L 04/30/16 02:35 Hct 36.5 % (37.5-50.1) L 04/30/16 02:35 Plt Count 138 K/mcL (140-400) L 04/30/16 02:35 Immature Plt Fraction 7.3 % (1.1-6.1) H 04/30/16 02:35 PT 14.5 Seconds (9.4-12.1) H 04/30/16 02:35 APTT 72.4 Seconds (26.0-36.0) H 04/30/16 02:35 ABG pO2 164 mmHg (85-104) H 04/28/16 08:13 ABG HCO3 29.2 mEQ/L (21-27) H 04/28/16 08:13 ABG Total CO2 30.6 mEq/L (20-26) H 04/28/16 08:13 ABG O2 Saturation 99 % (95-98) H 04/28/16 08:13 ABG Base Excess 4.0 mEq/L (-2.0 to 3.0) H 04/28/16 08:13 Carbon Dioxide 18 mEq/L (19-29) L 04/30/16 02:35 BUN 74 mg/dL (8-26) H 04/30/16 02:35 Creatinine 3.18 mg/dL (0.72-1.25) H 04/30/16 02:35 Est GFR ( Amer) 23 (> 60) L 04/30/16 02:35 Est GFR (Non-Af Amer) 19 (> 60) L 04/30/16 02:35 POC Glucose 140 (58-89) H 04/28/16 18:55 Hemoglobin A1c 5.8 % (-5.6) H 04/29/16 02:28 Calculated Osmolality 303 (280-300) H 04/30/16 02:35 Uric Acid 15.9 mg/dL (3.5-7.2) H 04/30/16 02:35 Calcium 8.3 mg/dL (8.6-10.8) L 04/30/16 02:35 Phosphorus 5.4 mg/dL (2.3-4.7) H 04/30/16 02:35 AST 110 Units/L (5-34) H 04/29/16 02:28 Troponin I > 50.00 ng/mL (0-0.03) H* 04/28/16 08:00 B-Natriuretic Peptide 2025 pg/mL (0-100) H 04/29/16 02:28 Albumin 2.7 g/dL (3.5-5.0) L 04/30/16 02:35 Albumin/Globulin Ratio 0.9 (1.1-2.2) L 04/29/16 02:28 LDL Cholesterol, Calc 124 mg/dL (0-99) H 04/28/16 08:00 HDL Cholesterol 36 mg/dL (40-59) L 04/28/16 08:00 Cholesterol/HDL Ratio 5.0 (0-4.9) H 04/28/16 08:00 Vitamin B12 > 2000 pg/mL (213-816) H 04/30/16 02:35 PTH Intact 250.8 pg/ml (8.5-72.5) H 04/30/16 02:35 Ur Specimen Adequacy See below A 04/28/16 08:32 Urine Color Red (Yellow) A 04/29/16 16:00 Urine Clarity Turbid (Clear) A 04/29/16 16:00 Urine Protein 30 mg/dL (Neg-Trace) H 04/29/16 16:00 Urine Blood Large (Negative) H 04/29/16 16:00 Ur Leukocyte Esterase Large (Negative) H 04/29/16 16:00 Urine Microscopic RBC TNTC per hpf (0-3) H 04/29/16 16:00 Urine Microscopic WBC 15-30 per hpf (0-3) H 04/29/16 16:00 Ur Squamous Epith Cells Many per lpf (None-Few) H 04/29/16 16:00 Ur Culture Indicated? YES (NO) A 04/29/16 16:00 Microalb/Creat Ratio 61 (0-30) H 04/29/16 17:04 Protein/Creatinin Ratio 0.21 mg/mg (0-0.20) H 04/29/16 17:04 Urine Total Protein 15 mg/dL (1-14) H 04/29/16 17:04 - Microbiology Findings Microbiology Findings: Microbiology, Last 48 Hours 04/29/16 16:00 Urine Culture - Final Urine,Clean Catch No growth. 04/28/16 06:55 Sputum Culture - Final Sputum - Clinical Findings Intake & Output: Intake & Output 04/29/16 04/30/16 04/30/16 23:59 07:59 15:59 Intake Total 696 / 696 107 / 107 873 / 873 Output Total 1025 / 1025 675 / 675 500 / 500 Balance -329 / -329 -568 / -568 373 / 373 Weight 82.69 kg
--- NOTE | 2016-04-30 09:49 | Cardiology Progress Note ---
<Cosme Friedman - Last Filed: 04/30/16 11:03> Date of Encounter: 04/30/16 Time of Encounter: 08:30 Assessment and Plan (1) Acute coronary syndrome Current Visit: Yes Status: Acute Noted elevated troponins on admission Mild EKG changes noted and intermittent a-fib, likely due to acute coronary event. We would like to cath tomorrow. Discussion with Dr. Haney in Nephrology about starting dialysis to prevent further renal damage (2) Acute decompensated heart failure Current Visit: Yes Status: Acute Begin Lasix drip to D/c when patient begins HD. (3) Acute respiratory failure Current Visit: Yes Status: Acute Begin lasix drip. BiPAP as necessary. Qualifiers: Respiratory failure complication: hypoxia Qualified Code(s): J96.01 - Acute respiratory failure with hypoxia (4) Atrial fibrillation Current Visit: Yes Status: Acute Likely due to cardiac ischemia. Continue to monitor. Qualifiers: Atrial fibrillation type: unspecified Qualified Code(s): I48.91 - Unspecified atrial fibrillation Discussion w patient/family: The assessment and plan as outlined above was discussed with the patient and/or family members who expressed understanding and agreement. All questions were answered. Thank you for involving us in the care of your patient. Please call with any questions. Subjective Principal diagnosis: ACS Interval history: Patient remains conversant and alert. Nephrology has discussed with patient the need for possible dialysis, to which the patient agreed. The patient has continued intermittent A-fib. He continues to remain short of breath intermittently. Continues to deny chest pain. Objective Vital Signs, Last 4 Hours Temp Pulse Resp BP Pulse Ox 04/30/16 09:00 81 18 126/56 97 04/30/16 08:00 88 20 138/64 96 04/30/16 07:28 98.2 F 04/30/16 07:00 92 04/30/16 06:00 80 16 128/56 100 General: Conversant HEENT: Atraumatic, Normocephaly, Mucus Membranes Moist Neck: No JVD Cardiac: Normal S1 and S2, Other (Intermittent irregular rhythm.) Lungs: Other (Coarse breath sounds bilaterally. In mild respiratory distress. Accessory muscle use.) Neuro: Alert and responsive Abdomen: Soft, Non-Tender Skin: No rashes noted on visualized skin Musculoskeletal: No Chest Wall Tenderness Extremities: No Clubbing, No Cyanosis, Other (Trace - +1 pitting edema in b/l LE.) Results 04/30/16 02:35 04/30/16 02:35 Lab Results 04/30/16 04/30/16 04/30/16 02:35 02:35 02:35 WBC 6.4 Hgb 12.0 L Hct 36.5 L Plt Count 138 L INR 1.3 APTT Sodium 136 Potassium 4.5 Chloride 103 Carbon Dioxide 18 L BUN 74 H Creatinine 3.18 H Glucose 91 Calcium 8.3 L 04/30/16 02:35 WBC Hgb Hct Plt Count INR APTT 72.4 H Sodium Potassium Chloride Carbon Dioxide BUN Creatinine Glucose Calcium - Imaging and Cardiology Chest Xray: report reviewed, image reviewed Echo: report reviewed - EKG Interpretation EKG results cardiology: personally reviewed, right bundle branch block Consult Discharge Plan - Plan Referrals: Tavares Palumbo, CUSHION MAKER HAND [Primary Care Provider] - - Attending Attestation I examined this patient and my medical decision-making was reviewed with the Resident Physician. I agree with the documented findings, disposition and treatment plan as described except to the extent set forth below. <Ruddy Mehta G - Last Filed: 04/30/16 12:55> Date of Encounter: 04/30/16 Assessment and Plan Discussion w patient/family: The assessment and plan as outlined above was discussed with the patient and/or family members who expressed understanding and agreement. All questions were answered. Thank you for involving us in the care of your patient. Please call with any questions. Objective Vital Signs, Last 4 Hours Temp Pulse Resp BP Pulse Ox 04/30/16 12:00 85 20 111/49 96 04/30/16 11:00 97.7 F 82 20 102/58 98 04/30/16 10:39 20 98 04/30/16 10:00 82 20 120/67 98 04/30/16 09:00 81 18 126/56 97 Results 04/30/16 02:35 04/30/16 02:35 Lab Results 04/30/16 04/30/16 04/30/16 02:35 02:35 02:35 WBC 6.4 Hgb 12.0 L Hct 36.5 L Plt Count 138 L INR 1.3 APTT Sodium 136 Potassium 4.5 Chloride 103 Carbon Dioxide 18 L BUN 74 H Creatinine 3.18 H Glucose 91 Calcium 8.3 L 04/30/16 02:35 WBC Hgb Hct Plt Count INR APTT 72.4 H Sodium Potassium Chloride Carbon Dioxide BUN Creatinine Glucose Calcium Attestation Statement - Attestation Attestation: I examined this patient and my medical decision-making was reviewed with the EDUCATION DEPARTMENT REGISTRAR/PA/Advanced Practice Nurse/Resident Physician. I agree with the documented findings, disposition and treatment plan as described except to the extent set forth below. Pt appears to mod sob appears to have sig amount of ischemia plan; a/w lasix drip d/w nephrology; will start dialysis (hemo) either today or tmrw cath in am d/w pt
[2016-04-30] MEDS: Budesonide/Formoterol 160/4.5 MDI IH SCH ×2 (10:38→22:07)
[2016-04-30] MEDS: Furosemide 240 MG in D5% in Water 96 ML IVC SCH (11:37)
[2016-04-30] MEDS: Heparin 25,000 UNIT/500 ML D5W 25,000 UNIT/500 ML MLS IVC SCH (13:28)
--- NOTE | 2016-04-30 13:31 | Urology Progress Note ---
Date of Encounter: 04/30/16 Time of Encounter: 13:30 - Assessment and Plan (1) Hematuria Current Visit: Yes Status: Acute Assessment and plan: Urine has cleared. Okay to remove iqbal catheter when no longer needed by primary team. will sign off. PLease call with any questions. Progress Note Narrative: 81 year old man with GA and hematuria. Urine is clearing. Objective Initial Vital Signs Temp Pulse Resp BP Pulse Ox 98.9 F 117 30 125/87 100 04/28/16 05:45 04/28/16 05:45 04/28/16 05:45 04/28/16 05:45 04/28/16 05:45 - General physical appearance Present: well developed, well nourished, no distress - Respiratory Present: normal respiratory effort - Abdomen Present: soft - Genitourinary Urine Appearance: Present: Clear - Labs 04/30/16 02:35 04/30/16 02:35 Diabetes panel 04/30/16 04/30/16 Range/Units 02:35 02:35 Sodium 136 (136-145) mEq/L Potassium 4.5 (3.5-4.5) mEq/L Chloride 103 (98-109) mEq/L Carbon Dioxide 18 L (19-29) mEq/L BUN 74 H (8-26) mg/dL Creatinine 3.18 H (0.72-1.25) mg/dL Glucose 91 (70-99) mg/dL Calcium 8.3 L (8.6-10.8) mg/dL Albumin 2.7 L (3.5-5.0) g/dL Calcium panel 04/30/16 04/30/16 04/30/16 Range/Units 02:35 02:35 02:35 Calcium 8.3 L (8.6-10.8) mg/dL Phosphorus 5.4 H (2.3-4.7) mg/dL Albumin 2.7 L (3.5-5.0) g/dL 25-OH Vitamin D Total 48 (30-80) ng/mL Pituitary panel 04/30/16 Range/Units 02:35 Sodium 136 (136-145) mEq/L Potassium 4.5 (3.5-4.5) mEq/L Chloride 103 (98-109) mEq/L Carbon Dioxide 18 L (19-29) mEq/L BUN 74 H (8-26) mg/dL Creatinine 3.18 H (0.72-1.25) mg/dL Glucose 91 (70-99) mg/dL Calcium 8.3 L (8.6-10.8) mg/dL Adrenal panel 04/30/16 04/30/16 Range/Units 02:35 02:35 Sodium 136 (136-145) mEq/L Potassium 4.5 (3.5-4.5) mEq/L Chloride 103 (98-109) mEq/L Carbon Dioxide 18 L (19-29) mEq/L BUN 74 H (8-26) mg/dL Creatinine 3.18 H (0.72-1.25) mg/dL Glucose 91 (70-99) mg/dL Calcium 8.3 L (8.6-10.8) mg/dL Albumin 2.7 L (3.5-5.0) g/dL Consult Discharge Plan - Plan Referrals: Tavares Palumbo, DRYWALL TAPER [Primary Care Provider] -
--- NOTE | 2016-04-30 14:16 | Event Note ---
Date of Encounter: 04/30/16 Time of Encounter: 07:30 Patient examined, chart and all data reviewed as well as imaging studies. This elderly male has acute respiratory failure with hypoxia secondary to underlying COPD but more importantly secondary to hypervolemia and mild pulmonary edema related to underlying [place] kidney disease and superimposed cardiac dysfunction from non-STEMI. The patient will undergo temporary dialysis after left heart catheterization which to my understanding will be performed tomorrow. In the meantime, as outlined by Dr. francois, the patient will be maintained on medical therapies for non-STEMI and COPD. Temporary dialysis catheter will be placed later today.
--- NOTE | 2016-04-30 18:41 | Nephrology Progress Note ---
Date of Encounter: 04/30/16 Time of Encounter: 18:41 - Assessment and Plan (1) CKD (chronic kidney disease) Current Visit: Yes Status: Chronic Awaiting records from PCP. Patient with Stage 4 CKD at baseline. Plan for dialysis after cardiac cath. Qualifiers: Chronic kidney disease stage: unspecified stage Qualified Code(s): N18.9 - Chronic kidney disease, unspecified (2) Acute respiratory failure Current Visit: Yes Status: Acute Improving respiratory status. Qualifiers: Respiratory failure complication: hypoxia Qualified Code(s): J96.01 - Acute respiratory failure with hypoxia (3) NSTEMI (non-ST elevated myocardial infarction) Current Visit: Yes Status: Acute Cardiology plans to perform cardiac cath. (4) Hypertension Current Visit: Yes Status: Chronic Titrate antihypertensive medication as needed. Qualifiers: Qualified Code(s): I10 - Essential (primary) hypertension Subjective Principal diagnosis: ACS Interval history: Patient seen and evaluated. Patient has no new complaint. ROS stable. Objective - Vital Signs Vital signs: Vital Signs Temp Pulse Resp BP Pulse Ox 04/30/16 18:00 91 18 155/53 96 04/30/16 16:59 88 20 111/68 96 04/30/16 16:00 96 14 109/61 98 04/30/16 15:00 97.9 F 92 16 112/70 96 04/30/16 14:00 86 19 119/56 94 L 04/30/16 13:00 90 18 125/63 97 04/30/16 12:00 85 20 111/49 96 04/30/16 11:00 97.7 F 82 20 102/58 98 04/30/16 10:39 20 98 04/30/16 10:00 82 20 120/67 98 04/30/16 09:00 81 18 126/56 97 04/30/16 08:00 88 20 138/64 96 04/30/16 07:28 98.2 F 04/30/16 07:00 92 04/30/16 06:00 80 16 128/56 100 04/30/16 05:00 80 16 112/50 98 04/30/16 04:54 97.8 F 04/30/16 04:00 88 16 115/62 97 04/30/16 03:45 18 98 04/30/16 03:00 77 16 127/58 97 04/30/16 02:00 82 22 86/55 97 04/30/16 01:00 82 18 122/68 100 04/30/16 00:30 97.7 F 04/30/16 00:00 73 18 93/52 100 04/29/16 23:00 80 16 94/47 100 04/29/16 22:12 16 100 04/29/16 22:00 81 18 106/60 100 04/29/16 21:00 84 16 108/64 100 04/29/16 20:20 98.5 F 04/29/16 20:00 91 16 119/64 100 04/29/16 19:30 85 20 115/53 100 Intake and Output 04/30/16 04/30/16 04/30/16 07:59 15:59 23:59 Intake Total 107 / 107 873 / 873 240 / 240 Output Total 675 / 675 1000 / 1000 Balance -568 / -568 -127 / -127 240 / 240 Intake: IV Fluids 107 / 107 393 / 393 0 / 0 Heparin 25,000 UNIT/500 107 / 107 393 / 393 0 / 0 ML D5W 25,000 unit In 500 ml @ 9.65 UNITS/KG/HR 20 .072 mls/hr IVC .Q24H SOLE Rx#:[id number] Oral 480 / 480 240 / 240 Output: Catheter 675 / 675 1000 / 1000 Other: Meal Dinner Percent of Meal Consumed 90% Weight 82.69 kg Blood Glucose* 125 Patient Weight 04/30/16 23:59 Weight 82.69 kg - General Appearance General appearance: Present: well-developed, well-nourished EENT: Present: ATNC Neck: Present: supple Respiratory: Present: clear Cardiology: Present: edema, regular rate, regular rhythm Gastrointestinal: Present: normoactive bowel sounds, no tenderness Integumentary: Present: warm and dry Neurologic: Present: alert and oriented x3 Musculoskeletal: Present: no cyanosis Psychiatric: Present: mood/affect appropriate - Lab 05/01/16 03:57 05/01/16 03:57 Most recent lab results ABG pH 7.42 pH Units (7.32-7.45) 04/28/16 08:13 ABG pCO2 45 mmHg (35-45) 04/28/16 08:13 ABG pO2 164 mmHg (85-104) H 04/28/16 08:13 ABG HCO3 29.2 mEQ/L (21-27) H 04/28/16 08:13 ABG O2 Saturation 99 % (95-98) H 04/28/16 08:13 Calcium 8.3 mg/dL (8.6-10.8) L 04/30/16 02:35 Phosphorus 5.4 mg/dL (2.3-4.7) H 04/30/16 02:35 Magnesium 2.1 mg/dL (1.6-2.6) 04/28/16 08:00 Urine Creatinine 71 mg/dL 04/29/16 17:04 Urine Total Protein 15 mg/dL (1-14) H 04/29/16 17:04 - VTE Documentation of Mechanical Device: Intermittent pneumatic compression device Consult Discharge Plan - Plan Referrals: Tavares Palumbo, SQL ARCHITECT [Primary Care Provider] -
--- NOTE | 2016-04-30 21:40 | Electrocardiograph Report ---
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
[2016-04-30] MEDS: *HR* LORazepam 2 MG/ML VIAL IVP PRN (22:18)
[2016-05-01] MEDS: Ipratropium/Albuterol Neb 3 ML IH SCH ×4 (04:04→22:16)
[2016-05-01 04:08] LABS: Eosinophils # 0.1 K/mcL (0.0-0.6); Eosinophils % 1.3 %; Hematocrit 36.4 % (37.5-50.1); Hemoglobin 11.9 g/dL (12.9-16.9); Immature Granulocytes % 0.5 % (0-4); Lymphocytes # 0.7 K/mcL (0.6-4.6); Lymphocytes % 11.1 %; Mean Corpuscular HGB Conc 32.7 g/dL (31.6-35.5); Mean Corpuscular Volume 97.8 fL (83.0-100.0); Mean Platelet Volume 11.4 fL (9.4-12.4); Monocytes # 0.6 K/mcL (0.0-1.3); Monocytes % 10.6 %; Neutrophils # 4.6 K/mcL (1.6-8.9); Platelet Count 149 K/mcL (140-400); Red Blood Count 3.72 M/mcL (4.19-5.50); Red Cell Distribution Width 13.1 % (11.5-14.5); Segmented Neutrophils % 76.5 %
[2016-05-01 04:14] LABS: INR 1.3; Prothrombin Time 14.2 Seconds (9.4-12.1)
[2016-05-01 04:20] LABS: Calcium 8.1 mg/dL (8.6-10.8); Potassium 3.8 mEq/L (3.5-4.5)
--- NOTE | 2016-05-01 06:41 | Electrocardiograph Report ---
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
[2016-05-01] MEDS: Nystatin SUSP 5 ML UD.LIQ PO SCH ×4 (08:02→21:23)
[2016-05-01] MEDS: Pantoprazole 40 MG VIAL IVPB SCH (08:02)
--- NOTE | 2016-05-01 08:06 | Pulmonology Progress Note ---
<Corey Blank - Last Filed: 05/01/16 08:05> Date of Encounter: 05/01/16 Assessment and Plan (1) Acute coronary syndrome Current Visit: Yes Status: Acute Patient reported several days worsening shortness of breath and exertional dyspnea prior to presentation to the hospital. Found to have troponins > 50.0 at admission, no ST elevations noted on EKG. Previously started on heparin drip , nitro drip. Given patient's serum creatinine of 3.02>3.18, there is concern for contrast-induced nephropathy if patient were to undergo catheterization. Appreciate care rep recommendation for continued management/care Nephrology consulted with regard to patient kidney function in setting of potential catheterization and patient will likely need continued claim inspector care given his stable CKD. Nitroglycerin drip discontinued, continue sublingual nitroglycerin as needed for chest pain/discomfort Amiodarone drip for A fb with RVR discontinued yesterday after conversion of heart rate to sinus rhythm (2) NSTEMI (non-ST elevated myocardial infarction) Current Visit: Yes Status: Acute Plan as above. (3) Acute decompensated heart failure Current Visit: Yes Status: Acute Given patient shortness of breath, concerning for decompensation of patient known heart failure. We will continue oxygen supplementation as needed and will continue with diuresis. (4) Acute respiratory failure Current Visit: Yes Status: Acute Patient maintaining adequate oxygen saturation on nasal cannula, continue supplemental oxygen as needed by patient Continue supplemental oxygen as needed, wean as tolerated Continue to monitor via continuous pulse ox Continue diuresis (carefully in setting of worsening kidney function). Qualifiers: Respiratory failure complication: hypoxia Qualified Code(s): J96.01 - Acute respiratory failure with hypoxia (5) CKD (chronic kidney disease) Current Visit: Yes Status: Chronic Patient has significant renal disease, Cr 3.02 ->3.18 today. He notes he has kidney disease, but does not see a claim inspector. His current kidney function is concerning given the potential need for cardiac catheterization. Nephrology consulted, pending renal ultrasound. We will avoid potentially nephrotoxic agents Continue to monitor via daily labs Qualifiers: Chronic kidney disease stage: unspecified stage Qualified Code(s): N18.9 - Chronic kidney disease, unspecified (6) Hematuria Current Visit: Yes Status: Acute Hematuria noted yesterday around Iqbal catheter. Urology was consulted, recommended continuing iqbal catheter with hand irrigation if necessary. (7) DVT prophylaxis Current Visit: Yes Status: Acute GI prophylaxis: Pantoprazole DVT prophylaxis: Heparin drip Neuro/sedation: No concerns at this time Cardiovascular: NSTEMI, CHF. Cardiology involved, potential need for catheterization but there are concerns given patient renal function. On heparin drip for ACS. A. fib with RVR was successfully converted with amiodarone drip, amiodarone drip since stopped. Continue monitor via telemetry. Pulmonary: Patient complains of exertional dyspnea, shortness of breath. Known history of COPD on several inhalers at home. Will continue patient inhalers and supplement O2 as needed by patient GI: Stress ulcer prophylaxis with pantoprazole Renal: Worsening kidney disease, nephrology consulted to help assess kidney function in the setting of the potential catheterization. Heme: DVT prophylaxis with heparin drip Endocrine: No concerns at this time : Hematuria yesterday around Iqbal catheter. Urology consulted recommending continued iqbal catheter. CODE STATUS: Full code Subjective Principal diagnosis: ACS Interval history: Patient denies any chest pain, states he has continued shortness of breath that may be slightly better than yesterday. states he does not have an appetite. Objective PUL Vital signs: Last Vital Signs Temp 98.4 F 05/01/16 04:00 Pulse 89 05/01/16 07:00 Resp 18 05/01/16 07:00 BP 130/64 05/01/16 07:00 Pulse Ox 99 05/01/16 07:00 Results - Laboratory Findings CBC and BMP: 05/01/16 03:57 05/01/16 03:57 ABG ABG pH 7.42 pH Units (7.32-7.45) 04/28/16 08:13 ABG pCO2 45 mmHg (35-45) 04/28/16 08:13 ABG pO2 164 mmHg (85-104) H 04/28/16 08:13 ABG O2 Saturation 99 % (95-98) H 04/28/16 08:13 PT/INR, D-dimer PT 14.2 Seconds (9.4-12.1) H 05/01/16 03:57 Abnormal lab findings: Abnormal lab results RBC 3.72 M/mcL (4.19-5.50) L 05/01/16 03:57 Hgb 11.9 g/dL (12.9-16.9) L 05/01/16 03:57 Hct 36.4 % (37.5-50.1) L 05/01/16 03:57 Immature Plt Fraction 7.3 % (1.1-6.1) H 04/30/16 02:35 PT 14.2 Seconds (9.4-12.1) H 05/01/16 03:57 APTT 86.1 Seconds (26.0-36.0) H 04/30/16 Unknown ABG pO2 164 mmHg (85-104) H 04/28/16 08:13 ABG HCO3 29.2 mEQ/L (21-27) H 04/28/16 08:13 ABG Total CO2 30.6 mEq/L (20-26) H 04/28/16 08:13 ABG O2 Saturation 99 % (95-98) H 04/28/16 08:13 ABG Base Excess 4.0 mEq/L (-2.0 to 3.0) H 04/28/16 08:13 BUN 72 mg/dL (8-26) H 05/01/16 03:57 Creatinine 2.76 mg/dL (0.72-1.25) H 05/01/16 03:57 Est GFR ( Amer) 27 (> 60) L 05/01/16 03:57 Est GFR (Non-Af Amer) 22 (> 60) L 05/01/16 03:57 Glucose 116 mg/dL (70-99) H 05/01/16 03:57 POC Glucose 140 (58-89) H 04/28/16 18:55 Hemoglobin A1c 5.8 % (-5.6) H 04/29/16 02:28 Calculated Osmolality 312 (280-300) H 05/01/16 03:57 Uric Acid 15.9 mg/dL (3.5-7.2) H 04/30/16 02:35 Calcium 8.1 mg/dL (8.6-10.8) L 05/01/16 03:57 Phosphorus 5.4 mg/dL (2.3-4.7) H 04/30/16 02:35 AST 110 Units/L (5-34) H 04/29/16 02:28 Troponin I > 50.00 ng/mL (0-0.03) H* 04/28/16 08:00 B-Natriuretic Peptide 2025 pg/mL (0-100) H 04/29/16 02:28 Albumin 2.7 g/dL (3.5-5.0) L 04/30/16 02:35 Albumin/Globulin Ratio 0.9 (1.1-2.2) L 04/29/16 02:28 LDL Cholesterol, Calc 124 mg/dL (0-99) H 04/28/16 08:00 HDL Cholesterol 36 mg/dL (40-59) L 04/28/16 08:00 Cholesterol/HDL Ratio 5.0 (0-4.9) H 04/28/16 08:00 Vitamin B12 > 2000 pg/mL (213-816) H 04/30/16 02:35 PTH Intact 250.8 pg/ml (8.5-72.5) H 04/30/16 02:35 Ur Specimen Adequacy See below A 04/28/16 08:32 Urine Color Red (Yellow) A 04/29/16 16:00 Urine Clarity Turbid (Clear) A 04/29/16 16:00 Urine Protein 30 mg/dL (Neg-Trace) H 04/29/16 16:00 Urine Blood Large (Negative) H 04/29/16 16:00 Ur Leukocyte Esterase Large (Negative) H 04/29/16 16:00 Urine Microscopic RBC TNTC per hpf (0-3) H 04/29/16 16:00 Urine Microscopic WBC 15-30 per hpf (0-3) H 04/29/16 16:00 Ur Squamous Epith Cells Many per lpf (None-Few) H 04/29/16 16:00 Ur Culture Indicated? YES (NO) A 04/29/16 16:00 Microalb/Creat Ratio 61 (0-30) H 04/29/16 17:04 Protein/Creatinin Ratio 0.21 mg/mg (0-0.20) H 04/29/16 17:04 Urine Total Protein 15 mg/dL (1-14) H 04/29/16 17:04 - Microbiology Findings Microbiology Findings: Microbiology, Last 48 Hours 04/29/16 16:00 Urine Culture - Final Urine,Clean Catch No growth. - Clinical Findings Intake & Output: Intake & Output 02/20/17 02/21/17 02/21/17 23:59 07:59 15:59 Intake Total 355 / 355 56 / 56 3.3 / 3.3 Output Total 800 / 800 750 / 750 Balance -445 / -445 -694 / -694 3.3 / 3.3 Weight 84.051 kg - VTE Documentation of Mechanical Device: Intermittent pneumatic compression device Consult Discharge Plan - Plan Referrals: Tavares Palumbo, TRIAL LAWYER [Primary Care Provider] - <Yaron Monsivais - Last Filed: 05/01/16 13:38> Time of Encounter: 13:38 Objective PUL Vital signs: Last Vital Signs Temp 97.9 F 05/01/16 11:41 Pulse 77 05/01/16 11:11 Resp 18 05/01/16 11:05 BP 117/57 05/01/16 11:05 Pulse Ox 99 05/01/16 11:05 Results - Laboratory Findings CBC and BMP: 05/01/16 03:57 05/01/16 03:57 ABG ABG pH 7.42 pH Units (7.32-7.45) 04/28/16 08:13 ABG pCO2 45 mmHg (35-45) 04/28/16 08:13 ABG pO2 164 mmHg (85-104) H 04/28/16 08:13 ABG O2 Saturation 99 % (95-98) H 04/28/16 08:13 PT/INR, D-dimer PT 14.2 Seconds (9.4-12.1) H 05/01/16 03:57 Abnormal lab findings: Abnormal lab results RBC 3.72 M/mcL (4.19-5.50) L 05/01/16 03:57 Hgb 11.9 g/dL (12.9-16.9) L 05/01/16 03:57 Hct 36.4 % (37.5-50.1) L 05/01/16 03:57 Immature Plt Fraction 7.3 % (1.1-6.1) H 04/30/16 02:35 PT 14.2 Seconds (9.4-12.1) H 05/01/16 03:57 APTT 86.1 Seconds (26.0-36.0) H 04/30/16 Unknown ABG pO2 164 mmHg (85-104) H 04/28/16 08:13 ABG HCO3 29.2 mEQ/L (21-27) H 04/28/16 08:13 ABG Total CO2 30.6 mEq/L (20-26) H 04/28/16 08:13 ABG O2 Saturation 99 % (95-98) H 04/28/16 08:13 ABG Base Excess 4.0 mEq/L (-2.0 to 3.0) H 04/28/16 08:13 BUN 72 mg/dL (8-26) H 05/01/16 03:57 Creatinine 2.76 mg/dL (0.72-1.25) H 05/01/16 03:57 Est GFR ( Amer) 27 (> 60) L 05/01/16 03:57 Est GFR (Non-Af Amer) 22 (> 60) L 05/01/16 03:57 Glucose 116 mg/dL (70-99) H 05/01/16 03:57 POC Glucose 140 (58-89) H 04/28/16 18:55 Hemoglobin A1c 5.8 % (-5.6) H 04/29/16 02:28 Calculated Osmolality 312 (280-300) H 05/01/16 03:57 Uric Acid 15.9 mg/dL (3.5-7.2) H 04/30/16 02:35 Calcium 8.1 mg/dL (8.6-10.8) L 05/01/16 03:57 Phosphorus 5.4 mg/dL (2.3-4.7) H 04/30/16 02:35 AST 110 Units/L (5-34) H 04/29/16 02:28 Troponin I > 50.00 ng/mL (0-0.03) H* 04/28/16 08:00 B-Natriuretic Peptide 2025 pg/mL (0-100) H 04/29/16 02:28 Albumin 2.7 g/dL (3.5-5.0) L 04/30/16 02:35 Albumin/Globulin Ratio 0.9 (1.1-2.2) L 04/29/16 02:28 LDL Cholesterol, Calc 124 mg/dL (0-99) H 04/28/16 08:00 HDL Cholesterol 36 mg/dL (40-59) L 04/28/16 08:00 Cholesterol/HDL Ratio 5.0 (0-4.9) H 04/28/16 08:00 Vitamin B12 > 2000 pg/mL (213-816) H 04/30/16 02:35 PTH Intact 250.8 pg/ml (8.5-72.5) H 04/30/16 02:35 Ur Specimen Adequacy See below A 04/28/16 08:32 Urine Color Red (Yellow) A 04/29/16 16:00 Urine Clarity Turbid (Clear) A 04/29/16 16:00 Urine Protein 30 mg/dL (Neg-Trace) H 04/29/16 16:00 Urine Blood Large (Negative) H 04/29/16 16:00 Ur Leukocyte Esterase Large (Negative) H 04/29/16 16:00 Urine Microscopic RBC TNTC per hpf (0-3) H 04/29/16 16:00 Urine Microscopic WBC 15-30 per hpf (0-3) H 04/29/16 16:00 Ur Squamous Epith Cells Many per lpf (None-Few) H 04/29/16 16:00 Ur Culture Indicated? YES (NO) A 04/29/16 16:00 Microalb/Creat Ratio 61 (0-30) H 04/29/16 17:04 Protein/Creatinin Ratio 0.21 mg/mg (0-0.20) H 04/29/16 17:04 Urine Total Protein 15 mg/dL (1-14) H 04/29/16 17:04 - Microbiology Findings Microbiology Findings: Microbiology, Last 48 Hours 04/29/16 16:00 Urine Culture - Final Urine,Clean Catch No growth. - Clinical Findings Intake & Output: Intake & Output 04/30/16 05/01/16 05/01/16 23:59 07:59 15:59 Intake Total 355 / 355 56 / 56 147.3 / 147.3 Output Total 800 / 800 1150 / 1150 550 / 550 Balance -445 / -445 -1094 / -1094 -402.7 / -402.7 Weight 84.051 kg
[2016-05-01] MEDS: Heparin 25,000 UNIT/500 ML D5W 25,000 UNIT/500 ML MLS IVC SCH (08:22)
[2016-05-01] MEDS ORDERED: 0.9 % Sodium Chloride 250 ML IV PRN (09:18)
[2016-05-01] MEDS ORDERED: *HR* Heparin 10,000 UNIT/10 ML VIAL IV PRN (09:18)
[2016-05-01] MEDS ORDERED: 0.9 % Sodium Chloride 1,000 ML PRIME SCH (09:30)
[2016-05-01] MEDS ORDERED: 0.9 % Sodium Chloride 2,000 ML ONE (09:34)
[2016-05-01] MEDS: Budesonide/Formoterol 160/4.5 MDI IH SCH ×2 (10:39→22:16)
--- NOTE | 2016-05-01 11:16 | Pre-Sedation Evaluation ---
Pre-sedation evaluation - Pre-sedation checklist Date of procedure: 05/01/16 Procedure: heart cath Recent Vitals: Last Vital Signs Temp 98.0 F 05/01/16 07:30 Pulse 76 05/01/16 11:05 Resp 18 05/01/16 11:05 BP 117/57 05/01/16 11:05 Pulse Ox 99 05/01/16 11:05 H&P (including ROS) documented in medical record: Yes Previous reaction to sedatives/anesthetics: No Dietary Status: NPO after Midnight Airway Assessment: Patient can open mouth completely, TMJ function normal, Micrognathia (under-bite, receding chin) absent, Neck with adequate range of motion Dentition: dentures removed Possible difficult airway: No ASA Classification *see protocol: CLASS II-Mild systemic disease Plan of Care: Pt appropriate candidate for procedure/moderate/conscious sedation , Risks/benefits of procedure/sedation discussed w/ patient/family
[2016-05-01] MEDS ORDERED: 0.9 % Sodium Chloride 1,000 ML ONE ×2 (11:19→11:32)
[2016-05-01] MEDS ORDERED: *HR* Heparin 10,000 UNIT/10 ML VIAL ONE (11:20)
[2016-05-01] MEDS ORDERED: Heparin 1,000 UNITS/500 mL NS 500 ML ONE (11:20)
[2016-05-01] MEDS ORDERED: Nitroglycerin 1,000 MCG/10 ML VIAL IV ONE (11:20)
--- NOTE | 2016-05-01 11:27 | Nephrology Progress Note ---
Date of Encounter: 05/01/16 Time of Encounter: 11:25 - Assessment and Plan (1) CKD (chronic kidney disease) Current Visit: Yes Status: Chronic Patient with Stage 4 CKD at baseline. Patient's creatinine is rising and there are plans for a cath today. Plan for dialysis after cardiac cath. Qualifiers: Chronic kidney disease stage: unspecified stage Qualified Code(s): N18.9 - Chronic kidney disease, unspecified (2) Acute respiratory failure Current Visit: Yes Status: Acute Improving respiratory status. Qualifiers: Respiratory failure complication: hypoxia Qualified Code(s): J96.01 - Acute respiratory failure with hypoxia (3) NSTEMI (non-ST elevated myocardial infarction) Current Visit: Yes Status: Acute Cardiology plans to perform cardiac cath today. (4) Hypertension Current Visit: Yes Status: Chronic Titrate antihypertensive medication as needed. Qualifiers: Qualified Code(s): I10 - Essential (primary) hypertension Subjective Principal diagnosis: ACS Interval history: Patient seen and evaluated. Patient has no new complaint. ROS stable. He reports his breathing is better. Objective - Vital Signs Vital signs: Vital Signs Temp Pulse Resp BP Pulse Ox 05/01/16 11:11 77 05/01/16 11:05 76 18 117/57 99 05/01/16 10:00 71 18 107/54 99 05/01/16 09:00 80 16 127/66 98 05/01/16 08:15 81 05/01/16 08:00 82 16 127/98 99 05/01/16 07:30 98.0 F 05/01/16 07:00 89 18 130/64 99 05/01/16 06:00 85 17 121/57 98 05/01/16 05:00 85 17 113/61 97 05/01/16 04:24 86 05/01/16 04:04 20 122/57 100 05/01/16 04:00 98.4 F 81 14 122/57 99 05/01/16 03:00 86 17 117/58 96 05/01/16 02:00 80 25 121/59 97 05/01/16 01:00 81 24 115/58 95 05/01/16 00:25 103 05/01/16 00:08 97.9 F 05/01/16 00:00 108 16 109/57 97 04/30/16 23:00 86 16 106/62 93 L 04/30/16 22:07 20 112/57 94 L 04/30/16 22:00 118 24 112/57 94 L 04/30/16 21:00 140 18 101/55 96 04/30/16 20:23 125 04/30/16 20:13 98.3 F 04/30/16 20:00 121 20 101/68 96 04/30/16 19:00 144 14 111/76 93 L 04/30/16 18:00 91 18 155/53 96 04/30/16 16:59 88 20 111/68 96 04/30/16 16:00 96 14 109/61 98 04/30/16 15:00 97.9 F 92 16 112/70 96 04/30/16 14:00 86 19 119/56 94 L 04/30/16 13:00 90 18 125/63 97 04/30/16 12:00 85 20 111/49 96 Intake and Output 04/30/16 05/01/16 05/01/16 23:59 07:59 15:59 Intake Total 355 / 355 56 / 56 27.3 / 27.3 Output Total 800 / 800 1150 / 1150 Balance -445 / -445 -1094 / -1094 27.3 / 27.3 Intake: IV Fluids 115 / 115 56 / 56 27.3 / 27.3 Cardizem 125 MG In 56 / 56 3.3 / 3.3 Dextrose 5% 100 ML @ 10 MG/HR 10 mls/hr IVC . [id number] SOLE Rx#: [id number] Heparin 25,000 UNIT/500 100 / 100 24 / 24 ML D5W 25,000 unit In 500 ml @ 9.65 UNITS/KG/HR 20 .072 mls/hr IVC .Q24H SOLE Rx#:[id number] Oral 240 / 240 Output: Catheter 800 / 800 1150 / 1150 Other: Meal Dinner Percent of Meal Consumed 90% Stool Color Yellow Weight 84.051 kg Patient Weight 05/01/16 23:59 Weight 84.051 kg - General Appearance General appearance: Present: well-developed, well-nourished EENT: Present: ATNC Neck: Present: supple Respiratory: Present: clear Cardiology: Present: regular rate, regular rhythm Gastrointestinal: Present: normoactive bowel sounds, no tenderness Integumentary: Present: warm and dry Neurologic: Present: alert and oriented x3 Musculoskeletal: Present: no cyanosis Psychiatric: Present: mood/affect appropriate - Lab 05/01/16 03:57 05/01/16 03:57 Most recent lab results ABG pH 7.42 pH Units (7.32-7.45) 04/28/16 08:13 ABG pCO2 45 mmHg (35-45) 04/28/16 08:13 ABG pO2 164 mmHg (85-104) H 04/28/16 08:13 ABG HCO3 29.2 mEQ/L (21-27) H 04/28/16 08:13 ABG O2 Saturation 99 % (95-98) H 04/28/16 08:13 Calcium 8.1 mg/dL (8.6-10.8) L 05/01/16 03:57 Phosphorus 5.4 mg/dL (2.3-4.7) H 04/30/16 02:35 Magnesium 2.1 mg/dL (1.6-2.6) 04/28/16 08:00 Urine Creatinine 71 mg/dL 04/29/16 17:04 Urine Total Protein 15 mg/dL (1-14) H 04/29/16 17:04 - VTE Documentation of Mechanical Device: Intermittent pneumatic compression device Consult Discharge Plan - Plan Referrals: Tavares Palumbo PHYSICAL THERAPY PROFESSOR [Primary Care Provider] -
[2016-05-01] MEDS: Furosemide 240 MG in D5% in Water 96 ML IVC SCH (11:31)
[2016-05-01] MEDS ORDERED: *HR* Midazolam HCl 2 MG/2 ML VIAL ONE (11:32)
[2016-05-01] MEDS ORDERED: *HR* FentaNYL (PF) 100 MCG/2 ML VIAL ONE (11:32)
[2016-05-01] MEDS ORDERED: Verapamil 5 MG/2 ML VIAL ONE (12:01)
--- NOTE | 2016-05-01 12:30 | Cardiology Progress Note ---
Date of Encounter: 05/01/16 Time of Encounter: 12:27 Assessment and Plan (1) Acute coronary syndrome Current Visit: Yes Status: Acute Patient reported several days worsening shortness of breath and exertional dyspnea prior to presentation to the hospital. Found to have troponins > 50.0 at admission, no ST elevations noted on EKG. Previously started on heparin drip , nitro drip. Given patient's serum creatinine of 3.02>3.18, there is concern for contrast-induced nephropathy if patient were to undergo catheterization. 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 Nitroglycerin drip discontinued, continue sublingual nitroglycerin as needed for chest pain/discomfort Amiodarone drip for A fb with RVR discontinued yesterday after conversion of heart rate to sinus rhythm will arrange for cath today. Pt understands risks and benefits and wishes to proceed Discussion w patient/family: The assessment and plan as outlined above was discussed with the patient and/or family members who expressed understanding and agreement. All questions were answered. Thank you for involving us in the care of your patient. Please call with any questions. will proceed with cath today possible dialysis later today Subjective Principal diagnosis: ACS Interval history: less sob , able to lie flat , negative 1.2 L of fluid, no cp Objective Vital Signs, Last 4 Hours Temp Pulse Resp BP Pulse Ox 05/01/16 11:41 97.9 F 05/01/16 11:11 77 05/01/16 11:05 76 18 117/57 99 05/01/16 10:39 12 99 05/01/16 10:00 71 18 107/54 99 05/01/16 09:00 80 16 127/66 98 Lungs: Other (occ crackles ) Results 05/01/16 03:57 05/01/16 03:57 Lab Results 04/30/16 05/01/16 05/01/16 Unknown 03:57 03:57 WBC 6.1 Hgb 11.9 L Hct 36.4 L Plt Count 149 INR 1.3 APTT 86.1 H Sodium Potassium Chloride Carbon Dioxide BUN Creatinine Glucose Calcium 05/01/16 03:57 WBC Hgb Hct Plt Count INR APTT Sodium 140 Potassium 3.8 Chloride 101 Carbon Dioxide 28 BUN 72 H Creatinine 2.76 H Glucose 116 H Calcium 8.1 L - VTE Documentation of Mechanical Device: Intermittent pneumatic compression device Consult Discharge Plan - Plan Referrals: Tavares Palumbo, EVELYN [Primary Care Provider] -
[2016-05-01] MEDS ORDERED: *HR* Bivalirudin 250 MG VIAL IVC ONE (12:36)
[2016-05-01] MEDS ORDERED: *HR* Ticagrelor 90 MG TABLET ONE (13:09)
--- NOTE | 2016-05-01 13:41 | Event Note ---
Date of Encounter: 05/01/16 Time of Encounter: 13:39 Patient examined, chart and all data reviewed as well as recent imaging studies. Overnight, the patient has maintained sinus rhythm and currently is free of IV medications for treatment of the same. The patient was also diuresed and notes an improvement of breathlessness orthopnea. The patient may transfer out of the intensive care unit. I defer additional management regarding ischemic heart disease and arrhythmia to the cardiology service. For treatment of mild COPD, patient may utilize bronchodilator therapy.
[2016-05-01] MEDS ORDERED: *HR* Atropine Sulfate 1 MG/10 ML SYRINGE ONE (13:43)
--- NOTE | 2016-05-01 14:31 | Invasive Diagnostic Lab Proc ---
Name: Skip Gonzalez Date of Study: 05/01/2016 Date: 1935 Ht: 70.9in Medical Record#: [id number] Age: 81 Wt: 185.19lb Gender: Male BSA: 2.04 Order #: [id number] BMI: 25.93 Physicians Procedure Physician: Ene Goldstein MD, [facility] Referring MD: Referring MD: Staff Name Position Time In Katlin Vargas RN Monitor 11:48 AM Ivone Villatoro RN Animal Killer 11:48 AM Lisandra Centeno RT (R) Scrub 11:48 AM Indications Indication Non-Stemi Procedures Performed Procedure L HRT ARTERY/VENTRICLE ANGIO PRQ CARD ZAFAR STENT W/ANGIO 1 VSL Pre-Procedure Checklist Informed consent is complete signed and on chart. H\\T\\P is on chart. ID band is on and ID verified with patient. Patient NPO for procedure The procedure was described for the patient and questions were answered. Blood Pressure: 128/55 ECG is on chart. Rhythm: NSR w/ PAC Plan of Care Patient will tolerate the procedure without complications. Adequate level of comfort will be maintained. Hemodynamics will remain stable Patient will recover from procedure without complications. Respiratory function will be maintained. Cardiac rhythm will remain stable. Patient temperature will be maintained. Patient and/or family have verbalized understanding of the procedure. Patient Education Chief Complaint/Reason for Test: Cardiac Cath Developmental Category: Geriatric (65+ years) Developmentally Appropriate for Age: Yes Learning Barriers: None Education Needs: Procedure Education Method: Verbal Information Taught: Cardiac Cath Educational Evaluation: Able to repeat information Intravenous Access Time IV Size Location DC'd Fluid/Drip Rate Units RN 18g 1 1/4" Patent On Arrival Rt Antecubital 22g 1" Patent On Arrival Lt Hand 0.9NaCl 25 ml/hr Katlin Vargas RN Dialysis cath Lt IJ Cardizem 2.5 ml.hr Allergies codeine Beta-Blockers (Beta-Adrenergic Bloc Vital Signs Time BP (mmHg) HR (bpm) O2 Sat. RR (bpm) LOC 11:50 AM / % 5 = Fully awake and oriented or at pre-proc level 11:50 AM / % 4 = Oriented but drowsy 12:06 PM / % 4 = Oriented but drowsy 12:51 PM / % 4 = Oriented but drowsy 12:51 PM / % 4 = Oriented but drowsy 12:39 PM 89 / 49 76 95 % 16 12:44 PM 91 / 43 72 97 % 16 12:51 PM 84 / 39 77 99 % 16 12:56 PM 101 / 65 75 99 % 17 12:57 PM 79 / 44 76 99 % 18 12:59 PM 82 / 49 75 99 % 14 01:05 PM 95 / 62 79 99 % 21 11:41 AM 128 / 55 78 98 % 12:10 PM 97 / 53 75 98 % 23 12:14 PM 103 / 53 75 100 % 23 12:19 PM 94 / 50 75 98 % 17 12:25 PM 108 / 57 74 95 % 26 12:29 PM 88 / 35 77 98 % 21 12:31 PM 94 / 53 76 97 % 26 12:35 PM 88 / 51 76 98 % 19 Procedural Medications Time Medication Dose Units Method Given By 11:49 AM Oxygen 2 L/min nasal cannula Ivone Villatoro RN 11:49 AM Versed 1 mg Intravenous Ivone Villatoro RN 11:52 AM Lidocaine 2% 8 ml Subcutaneous Ene Goldstein MD, FACC 11:54 AM Lidocaine 2% 10 ml Subcutaneous Ene Goldstein MD, FACC 11:45 AM Lasix 10 mg/hr Intravenous 11:45 AM Cardizem 2.5 ml/hr Intravenous 12:04 PM Lidocaine 2% 0.5 ml Subcutaneous Ene Goldstein MD, FACC 12:22 PM Fentanyl 25 mcg Intravenous Ivone Villatoro RN 12:28 PM Lidocaine 2% 14 ml Subcutaneous Ene Goldstein MD, FACC 12:41 PM Versed 1 mg Intravenous Viv Rubio RN 12:41 PM Fentanyl 25 mcg Intravenous Viv Rubio RN 12:41 PM Heparin 3000 units Intravenous Viv Rubio RN 12:44 PM Oxygen 6 L/min simple face mask Viv Rubio RN 12:53 PM Nitroglycerin 200 mcg Intracoronary Ene Goldstein MD, FACC 01:04 PM Reopro Bolus: 10.5 ml Intravenous Alka Cline RN 01:08 PM Brilinta 180 mg Orally lAka Cline RN ASA Classification: CLASS II- Mild systemic disease (i.e. well-controlled diabetes, hypertension, asthma, cigarette smoking) Deanna Score Preprocedure Postprocedure Activity 2- Moves 4 extremities sustained head lift Activity Circulation 2- SBP +/= 20 points of pre-anesthetic level Circulation Consciousness 2- Awake and alert oriented x 3 Consciousness O2 Saturation 2- Able to maintain O2 satruation of 92% on room air O2 Saturation Respiratory 2- Able to deep breathe and cough well Respiratory Total Score 10 Total Score Contrast Agent: Isovue Diagnostic Contrast: 94 ml Total Contrast: 94 ml Fluoro Dose: 880 mGy Activated Clotting Time Time Seconds to Clot 12:41 PM 100 01:03 PM 175 Procedure Log Time Note Enter By 11:27 AM CathStat 11:40 AM NIBP STAT measurement started. 11:41 AM HR=78 bpm, NMQO=184/55 mmhg, SpO2=98.0 % 11:45 AM Patient arrived at 11:45 with Cardizem Intravenous drip @ 2.5 ml/hr [facility] 11:45 AM Meet and germaine completed [facility] 11:45 AM Sign in performed according to hospital policy. 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 2 [facility] 11[facility] 11:45 AM Physician arrived 11:45 [facility] 11:46 AM Procedure start 11:46 [facility] 11:46 AM Lasix gtt connected to the 18g iin the LAC, per [facility] 11:48 AM Katlin Vargas RN Position: Monitor Time in: 11:48 [facility] 11:48 AM Ivone Villatoro RN Position: Animal Killer Time in: 11:48 [facility] 11:48 AM Lisandra Centeno RT (R) Position: Scrub Time in: 11:48 [facility] 11:48 AM Patient charges- Angio tray pack, Navilyst 3mm J, Pulse Oximetry and ACIST tubing and transducer [facility] 11:48 AM Case Delayed No [facility] 11:48 AM Hair removed from procedure site in procedure lab using clippers. Bilateral groin prepped with Chloraprep by Lisandra Centeno RT (R) then patient draped. Skin intact. [facility] 11:49 AM ASA Class CLASS II- Mild systemic disease (i.e. well-controlled diabetes, hypertension, asthma, cigarette smoking) [email or web address] 11:49 AM Pressure channel 1 zero failed. 11:49 AM Time: 11:49 Oxygen on at 2 L/min per nasal cannula by Ivone Villatoro RN [facility] 11:49 AM Time: :49 Versed 1 mg Intravenous Given by Ivone Villatoro RN [facility] 11:50 AM Time: :50 Patient comfortable and pain free: Yes [facility] 11:50 AM Time: :50LOC: 5 = Fully awake and oriented or at pre-proc level [facility] 11:51 AM Clinical Presentation: Non-STEMI [facility] 11:52 AM Pressure channel 1 zeroed. 11:52 AM Time out performed according to hospital policy [facility] 11:53 AM Time: :52 8 ml Lidocaine 2% to right groin Subcutaneous Given by Ene Goldstein MD, [facility] 11:54 AM Time: :54 10 ml Lidocaine 2% to right groin Subcutaneous Given by Ene Goldstein MD, [facility] 12:00 PM Unsuccessful access attempt # 1 into the right Femoral artery. Manual pressure applied to achieve hemostasis.. [facility] 12:03 PM Vitals capture started with the following parameters, Patient=Adult, Interval=5 min, Initial Mmekpves=886 mmHg, Deflation Rate=5 mmHg, Cuff placed on Right Arm 12:04 PM preparing patients rt radial [facility] 12:04 PM Time: 12:04 0.5 ml Lidocaine 2% to right radial Subcutaneous Given by Ene Goldstein MD, [facility] 12:05 PM Vitals capture stopped. 12:05 PM Vitals capture started with the following parameters, Patient=Adult, Interval=5 min, Initial Ecrwyqae=379 mmHg, Deflation Rate=5 mmHg, Cuff placed on Right Arm 12:06 PM Time: :50 Patient comfortable and pain free: Yes [facility] 12:06 PM Time: :50LOC: 4 = Oriented but drowsy [facility] 12:07 PM Vitals capture stopped. 12:09 PM Vitals capture started with the following parameters, Patient=Adult, Interval=5 min, Initial Vijoeorj=690 mmHg, Deflation Rate=5 mmHg, Cuff placed on Right Arm 12:10 PM Unsuccessful access attempt # 1 into the right Radial artery. Manual pressure applied to achieve hemostasis.. [facility] 12:10 PM HR=75 bpm, NIBP=97/53 mmhg, SpO2=98.0 %, Resp=23 B/min, Comment=sr with PACs 12:10 PM Unsuccessful access attempt # 2 into the right Radial artery. Manual pressure applied to achieve hemostasis.. [facility] 12:14 PM HR=75 bpm, AWCW=433/53 mmhg, PxQ9=931.0 %, Resp=23 B/min, Comment=sr with PACs 12:17 PM Unsuccessful access attempt # 3 into the right Radial artery. Manual pressure applied to achieve hemostasis.. [facility] 12:17 PM Pressure channel 1 zeroed. 12:19 PM HR=75 bpm, NIBP=94/50 mmhg, SpO2=98.0 %, Resp=17 B/min, Comment=sr with PACs 12:21 PM Time: 12:06LOC: 4 = Oriented but drowsy [facility] 12:22 PM Time: 12:06 Patient comfortable and pain free: Yes [facility] 12: PM Time: 12: Fentanyl 25 mcg Intravenous Given by Ivone Villatoro RN [facility] 12:25 PM HR=74 bpm, TUYX=474/57 mmhg, SpO2=95.0 %, Resp=26 B/min, Comment=sr with PACs 12:28 PM Time: 12:28 14 ml Lidocaine 2% to right groin Subcutaneous Given by Ene Goldstein MD, [facility] 12:29 PM Access obtained by percutaneous puncture. 5Fr 10cm Terumo [place] sheath placed in right Femoral artery. [id number] [facility] 12:29 PM HR=77 bpm, NIBP=88/35 mmhg, SpO2=98.0 %, Resp=21 B/min, Comment=sr with PACs 12:30 PM 5Fr FL 4 catheter inserted over the wire [facility] 12:30 PM NIBP STAT measurement started. 12:31 PM Recorded Pressure: Ao, HR=80, Condition=Condition 1 (Aorta) Ao 116/62/87 12:31 PM HR=76 bpm, NIBP=94/53 mmhg, SpO2=97.0 %, Resp=26 B/min, Comment=sr with PACs 12:31 PM LCA angiography performed in multiple views. [email or web address] 12:31 PM Recorded Pressure: Ao, HR=76, Condition=Condition 1 (Aorta) Ao 115/67/88 12:33 PM Catheter removed [email or web address] 12:33 PM 5Fr FR 4 catheter inserted over the wire [facility] [email or web address] 12:34 PM Pressure channel 1 zero failed. 12:34 PM Pressure channel 1 zeroed. 12:34 PM Recorded Pressure: LV, HR=76, Condition=Condition 1 (Left Ventricle) LV 119/14/23 12:34 PM Recorded Pressure: LV, Ao, HR=78, Condition=Condition 1 (Left Ventricle) LV 121/9/20, (Aorta) Ao 121/21/62 12:35 PM HR=76 bpm, NIBP=88/51 mmhg, SpO2=98.0 %, Resp=19 B/min, Comment=sr with PACs 12:35 PM RCA angiography performed in [place] [email or web address] 12:36 PM Catheter removed [email or web address] 12:39 PM HR=76 bpm, NIBP=89/49 mmhg, SpO2=95.0 %, Resp=16 B/min, Comment=sr with PACs 12:40 PM Sheath exchanged for a 6 Fr 11 cm Cordis Rachele sheath [id number] [email or web address] 12:40 PM 6Fr XB LAD 3.5 Runway guide catheter was used to cannulate the PCI vessel successfully. reused? No [email or web address] 12:41 PM .014 Prowater 180cm guide wire across target lesion- successful. reused? No [email or web address] 12:41 PM At 12:41 the ACT was 100 seconds. [email or web address] 12:41 PM Time: 12:41 Versed 1 mg Intravenous Given by Viv Rubio RN [email or web address] 12:41 PM Time: 12:41 Fentanyl 25 mcg Intravenous Given by Viv Rubio RN [email or web address] 12:42 PM Time: 12:41 Heparin 3000 units Intravenous Given by Viv Rubio RN [email or web address] 12:42 PM Recorded Pressure: Ao, HR=75, Condition=Condition 1 (Aorta) Ao 98/38/61 12:44 PM HR=72 bpm, NIBP=91/43 mmhg AO pressure , SpO2=97.0 %, Resp=16 B/min, Comment=sr with PACs 12:45 PM Time: 12:44 Oxygen on at 6 L/min per simple face mask by Viv Rubio RN [email or web address] 12:45 PM Recorded Pressure: Ao, HR=79, Condition=Condition 1 (Aorta) Ao 90/39/61 12:46 PM 2.0 mm x 15 mm Emerge Monorail balloon across target lesion- successful. reused? No [email or web address] 12:46 PM Lesion found in Proximal LAD. Pre Stenosis: 99 Pre LATOYA Flow: 2: Partial Flow/Perfusion (> 1 but < 3) [email or web address] 12:46 PM Proximal Left Anterior Descending Coronary Artery with 99% stenosis. [email or web address] 12:47 PM Balloon inflated @ 6 madhu for 20 seconds [email or web address] 12:48 PM Balloon inflated @ 10 madhu for 20 seconds [email or web address] 12:48 PM Inflation device was opened. [email or web address] 12:49 PM Balloon catheter removed intact. [email or web address] 12:50 PM 2.5mm x 16mm Synergy drug-eluting stent across target lesion- successful Lot #[id number] [email or web address] 12:51 PM HR=77 bpm, NIBP=84/39 mmhg, SpO2=99.0 %, Resp=16 B/min, Comment=sr with PACs 12:51 PM Stent deployed @ 12 madhu for 30 seconds [email or web address] 12:51 PM Time: 12:51 Patient comfortable and pain free: Yes [email or web address] 12:51 PM Time: 12:51LOC: 4 = Oriented but drowsy [email or web address] 12:52 PM Stent balloon reinflated @ 14 madhu for 11 seconds [email or web address] 12:53 PM Stent delivery system removed intact. [email or web address] 12:53 PM Time: 12:53 Nitroglycerin 200 mcg Intracoronary Given by Ene Goldstein MD, [facility] [email or web address] 12:54 PM Recorded Pressure: Ao, HR=73, Condition=Condition 1 (Aorta) Ao 119/41/72 12:55 PM Guide wire removed intact. [email or web address] 12:55 PM Guide catheter removed intact. [email or web address] 12:56 PM Bolus angiogram of right Femoral complete: 4 ml/sec for a total of 7 mls [email or web address] 12:56 PM HR=75 bpm, BMGL=229/65 mmhg, SpO2=99.0 %, Resp=17 B/min, Comment=sr with PACs 12:56 PM Recorded Pressure: Ao, HR=74, Condition=Condition 1 (Aorta) Ao 101/43/65 12:57 PM NIBP STAT measurement started. 12:57 PM HR=76 bpm, NIBP=79/44 mmhg, SpO2=99.0 %, Resp=18 B/min 12:59 PM HR=75 bpm, NIBP=82/49 mmhg, SpO2=99 %, Resp=14 B/min 01:02 PM Procedure completed at 13:02 [email or web address] 01:03 PM Sign out completed: Radiation Dose 880.5 mGy Fluoro Time: 7.3 Isovue 370 - 200ml contrast 94 ml given by Ene Goldstein MD, [facility]. Complications: NoneCardiac Rehab Consult needed: YesConfirmed administered medications: Yes [email or web address] 01:03 PM At 13:03 the ACT was 175 seconds. [email or web address] 01:04 PM Time: 13:04 Reopro Bolus: 10.5 ml Intravenous Given by Alka Cline RN Heart pump [email or web address] 01:05 PM HR=79 bpm, NIBP=95/62 mmhg, SpO2=99.0 %, Resp=21 B/min 01:06 PM Isovue 370 - 200ml,1 Bottle(s) used. [email or web address] 01:06 PM Sheath left in place to be pulled on floor/holding [id number] [email or web address] 01:06 PM Post ECG NSR with PACs [email or web address] 01:06 PM Time: 12:51 Patient comfortable and pain free: Yes [email or web address] 01:06 PM Time: 12:51LOC: 4 = Oriented but drowsy [email or web address] 01:07 PM Post Blood Pressure 95/62 [email or web address] 01:07 PM 13:07 Post Pulses Rt Radial 1+ [email or web address] 01:07 PM 13:07 Post Pulses Bilateral DP \\T\\ PT 1+ [email or web address] 01:08 PM Time: 13:08 Brilinta 180 mg Orally Given by Alka Cline RN [email or web address] 01:15 PM Lesion found in Proximal RCA. Pre Stenosis: 100 [email or web address] 01:15 PM Lesion found in 1st Diagonal. Pre Stenosis: 50 [email or web address] 01:16 PM Lesion found in Proximal Circumflex. Pre Stenosis: 30 Pre LATOYA Flow: [email or web address] 01:16 PM Coronary Dominance: right [email or web address] 01:16 PM Lesion found in Mid Circumflex. Pre Stenosis: 60 Pre LATOYA Flow: [email or web address] 01:19 PM Lesion found in 1st Marginal. Pre Stenosis: 99 [email or web address] 01:22 PM Report given to Ginny IBARRA Pt taken to ICU Room #6. 13:22 [email or web address] 01:22 PM Plavix, Effient or Brilinta given Yes [email or web address] 01:22 PM Delay to floor No [email or web address] 01:22 PM Patient out of room: 13:22 [email or web address] 01:22 PM family not here, patient states that he doesnt want us to call anyone, we can update his when she gets here [email or web address] 01:23 PM Information taught Cardiac Cath and PCI [email or web address] 01:23 PM Education needs Procedure, Plan of Care, and Responsibilities of Patient in Care [email or web address] 02:14 PM Complications: None [email or web address] 02:14 PM Fluoro Time: 7.3 [email or web address] 02:14 PM Isovue 370 - 200ml contrast 94 ml given by Ene Goldstein MD, [facility]. [email or web address] 02:15 PM Mid/Distal Left Anterior Descending Coronary Artery and diagonal branches with 50% stenosis. If graft is supplying this area, 0 % stenosis [email or web address] 02:15 PM Circumflex, Obtuse Marginal, Left Posterior Descending, and Left Posterolateral Coronary Arteries with 99 % stenosis. If graft is supplying this area, 0 % stenosis [email or web address] 02:15 PM Right Coronary, Right Posterior Descending Arteries with Right Posterolateral and Acute Marginal branches with 100 % stenosis. If graft is supplying this area, 0 % stenosis [email or web address] Complications Complication None Hemodynamics Pressures Site Systolic/A Wave Diastolic/V Wave Mean AO 116 62 87 AO 115 67 88 LV 119 14 23 LV 121 9 20 AO 121 21 62 AO 98 38 61 AO 90 39 61 AO 119 41 72 AO 101 43 65 Post Procedure Information Blood Pressure: 95/62 mmHg Rhythm: NSR with PACs Post procedural instructions were given Closure Device Time Device Success/Fail 05/01/2016 1:23:00 PM Manual Compression Successful Site Checks Time Location Status Staff Sheath In? Note 01:23 PM Rt Groin No bleeding/ No Hematoma Lisandra Centeno RT (R) Yes Pulses Time Site Pre-Procedure Post-Procedure Note 05/01/2016 11:45:00 AM Bilateral DP \\T\\ PT 1+ 05/01/2016 11:45:00 AM Bialteral radial 2+ 1:07:00 PM Rt Radial 1+ 1:07:00 PM Bilateral DP \\T\\ PT 1+ Updated by RT Harriett(R) on 05/01/2016 2:18:48 PM electronically signed on 05/01/2016 2:25:29 PM with status of Final
[2016-05-01] MEDS: *HR* LORazepam 2 MG/ML VIAL IVP PRN ×2 (14:41→22:37)
[2016-05-01] MEDS: Aspirin 81 MG TAB.CHEW PO SCH (16:44)
--- NOTE | 2016-05-01 17:36 | Electrocardiograph Report ---
[address] [place] [address] Test Date: 2016-04-29 Pat Name: Skip Gonzalez Department: 109 Room: 06 Gender: M Kettle Chipper: : 1935 Requested By: Javon Dumont Order Number: [id number] Reading MD: Franca De Jesus Measurements Intervals [place] Rate: 85 P: 59 TX: 158 QRS: -87 QRSD: 138 T: 0 QT: 363 QTc: 405 Interpretive Statements SINUS RHYTHM WITH SINUS ARRHYTHMIA RIGHT BUNDLE BRANCH BLOCK INFERIOR MYOCARDIAL INFARCTION, OF INDETERMINATE AGE POSSIBLE ANTEROSEPTAL MYOCARDIAL INFARCTION, OF INDETERMINATE AGE Electronically Signed On 05-01-2016 17:34:26 EST by Franca De Jesus
--- NOTE | 2016-05-01 18:07 | Electrocardiograph Report ---
[address] [place] [address] Test Date: 2016-04-30 Pat Name: Skip Gonzalez Department: 109 Room: [facility] Gender: M Review Trainer: : 1935 Requested By: Javon Dumont Order Number: [id number] Reading MD: Ene Goldstein Measurements Intervals [place] Rate: 134 P: IN: 0 QRS: 267 QRSD: 135 T: 0 QT: 316 QTc: 395 Interpretive Statements ATRIAL FIBRILLATION WITH RAPID VENTRICULAR RESPONSE MARKED RIGHT AXIS DEVIATION RIGHT BUNDLE BRANCH BLOCK INFERIOR MYOCARDIAL INFARCTION, OF INDETERMINATE AGE ANTEROLATERAL MYOCARDIAL INFARCTION, PROBABLY RECENT Electronically Signed On 05-01-2016 18:05:41 EST by Ene Goldstein
[2016-05-02] MEDS: Ipratropium/Albuterol Neb 3 ML IH SCH ×4 (04:33→22:46)
[2016-05-02 04:40] LABS: Hematocrit 37.1 % (37.5-50.1); Hemoglobin 12.2 g/dL (12.9-16.9); Mean Corpuscular HGB Conc 32.9 g/dL (31.6-35.5); Mean Corpuscular Hemoglobin 31.9 pg (28.0-33.3); Mean Corpuscular Volume 97.1 fL (83.0-100.0); Mean Platelet Volume 10.9 fL (9.4-12.4); Platelet Count 162 K/mcL (140-400); Red Blood Count 3.82 M/mcL (4.19-5.50); Red Cell Distribution Width 13.1 % (11.5-14.5)
[2016-05-02 05:01] LABS: Calcium 8.4 mg/dL (8.6-10.8); Potassium 3.8 mEq/L (3.5-4.5)
--- NOTE | 2016-05-02 07:55 | Event Note ---
Date of Encounter: 05/02/16 Time of Encounter: 07:52 Patient examined, chart and all data reviewed as well as imaging studies. The patient underwent left heart catheterization yesterday (NSTEMI) and from review of the chart, lesion in the LAD was dilated and stented. Furthermore, patient also underwent hemodialysis which was well tolerated hemodynamically. According to the output and input data, the patient mustered a tremendous urine output with diuretic therapy. Patient remains in sinus rhythm with frequent PACs with low-dose Cardizem drip. He also currently is receiving Lasix drip at low dose. Patient is awake and alert this morning. Vitals reviewed. Rhonchi are noted throughout the lung francois bilaterally. The patient will be transitioned off intravenous Cardizem to enteral furthermore Lasix drip will be switched to intermittent dosing. From a critical care viewpoint, the patient could leave the intensive care unit. Acute respiratory failure with hypoxia in this particular individual is due to underlying COPD as well as mild hypervolemia and part related to renal failure and mild cardiac impairment. With current medical therapies as provided, the respiratory insufficiency should improve over time.
[2016-05-02] MEDS ORDERED: dilTIAZem HCl 60 MG TABLET PO SCH (08:00)
[2016-05-02] MEDS ORDERED: Ondansetron 4 MG/2 ML VIAL IVP PRN (08:06)
[2016-05-02] MEDS ORDERED: 0.9 % Sodium Chloride 250 ML IV PRN (08:06)
[2016-05-02] MEDS ORDERED: Nitroglycerin 0.4 MG TAB.SUBL SL PRN (08:06)
[2016-05-02] MEDS ORDERED: Naloxone 0.4 MG/ML INJ IVP PRN (08:06)
[2016-05-02] MEDS ORDERED: Nicotine 21 MG PATCH.TD24 TD PRN (08:06)
[2016-05-02] MEDS ORDERED: *HR* Morphine 2 MG/ML SYRINGE IVP PRN (08:06)
[2016-05-02] MEDS ORDERED: 0.9 % Sodium Chloride 1,000 ML PRIME SCH (08:06)
[2016-05-02] MEDS: predniSONE 20 MG TABLET PO SCH (08:44)
[2016-05-02] MEDS: Nystatin SUSP 5 ML UD.LIQ PO SCH ×4 (08:44→20:14)
[2016-05-02] MEDS: Aspirin 81 MG TAB.CHEW PO SCH (08:45)
[2016-05-02] MEDS: Furosemide 40 MG TABLET PO SCH (08:52)
[2016-05-02] MEDS ORDERED: Pantoprazole 40 MG VIAL IVPB SCH (09:00)
[2016-05-02] MEDS ORDERED: predniSONE 20 MG TABLET PO SCH (09:00)
--- NOTE | 2016-05-02 09:05 | Pulmonology Progress Note ---
Date of Encounter: 05/02/16 Time of Encounter: 08:30 Assessment and Plan (1) Acute coronary syndrome Current Visit: Yes Status: Acute Patient reported several days worsening shortness of breath and exertional dyspnea prior to presentation to the hospital. Found to have troponins > 50.0 at admission, no ST elevations noted on EKG. Previously started on heparin drip , nitro drip. Given patient's serum creatinine of 3.02>3.18, there was concern for contrast-induced nephropathy if patient were to undergo catheterization. S/P LHC with PCI on 05/02/16. Drug-eluting stent to proximal left anterior descending coronary artery. Underwent dialysis after LHC. Currently on Cardizem drip, working to switch to PO medication. Appreciate cardiology recommendation for continued management/care Patient is stable to leave the intensive care unit pending available bed. (2) NSTEMI (non-ST elevated myocardial infarction) Current Visit: Yes Status: Acute Plan as above. (3) Acute decompensated heart failure Current Visit: Yes Status: Acute Improving. Given patient's shortness of breath, concern for decompensation of patient's known heart failure. We will continue oxygen supplementation as needed and continue carefully diuresis. (4) Acute respiratory failure Current Visit: Yes Status: Acute Patient maintaining adequate oxygen saturation on nasal cannula, continue supplemental oxygen as needed by patient Continue supplemental oxygen as needed, wean as tolerated Continue to monitor via continuous pulse ox Continue breathing treatments and begin prednisone 40mg PO daily. Qualifiers: Respiratory failure complication: hypoxia Qualified Code(s): J96.01 - Acute respiratory failure with hypoxia (5) CKD (chronic kidney disease) Current Visit: Yes Status: Chronic Cr continues to improve 3.02>3.18>2.76>2.27 with GFR today at 28. Catheter placed on 04/30/16 for temporary hemodialysis after LHC on 05/01/16. Lasix drip discontinued, restarted home lasix dose of 40mg daily. Urine output of 3.7L yesterday. We will avoid potentially nephrotoxic agents Followed by nephrology, Dr. Haney. Qualifiers: Chronic kidney disease stage: stage 4 (severe) Qualified Code(s): N18.4 - Chronic kidney disease, stage 4 (severe) (6) DVT prophylaxis Current Visit: Yes Status: Acute GI prophylaxis: Pantoprazole DVT prophylaxis: Heparin appears to have been discontinued. Consider EPCDs. Neuro/sedation: No concerns at this time Cardiovascular: NSTEMI, CHF. Underwent LHC. See assessment above. Pulmonary: Patient complains of exertional dyspnea, shortness of breath. Known history of COPD on several inhalers at home. Will continue patient inhalers and supplement O2 as needed by patient. Starting Prednisone 40mg daily. GI: Stress ulcer prophylaxis with pantoprazole Renal: See CKD assessment. Endocrine: No concerns at this time : No further hematuria noted. CODE STATUS: Full code Subjective Principal diagnosis: ACS Interval history: Patient states he has continued shortness of breath that may be slightly better than yesterday. States he has a lot of mucus production. States he does not have much of an appetite, but currently trying to eat breakfast. Denies any difficulties eating/swallowing. Objective PUL Vital signs: Last Vital Signs Temp 98.0 F 05/02/16 07:46 Pulse 85 05/02/16 07:36 Resp 14 05/02/16 07:00 BP 118/89 05/02/16 07:00 Pulse Ox 97 05/02/16 07:00 General appearance: no acute distress Eyes: nonicteric ENT: oropharynx moist Neck: supple Effort: normal Auscultation: bilateral: wheezes, rhonchi Cardiovascular: other (tachycardia) Gastrointestinal: normoactive bowel sounds, soft, non-tender, non-distended Integumentary: normal Extremities: no cyanosis, no edema, no clubbing, pink and warm, other ( capillary refill <2 sec) Musculoskeletal: no deformities Gait: normal posture normal mental status, non-focal exam mood appropriate, affect normal Results - Laboratory Findings CBC and BMP: 05/02/16 04:25 05/02/16 04:25 ABG ABG pH 7.42 pH Units (7.32-7.45) 04/28/16 08:13 ABG pCO2 45 mmHg (35-45) 04/28/16 08:13 ABG pO2 164 mmHg (85-104) H 04/28/16 08:13 ABG O2 Saturation 99 % (95-98) H 04/28/16 08:13 PT/INR, D-dimer PT 14.2 Seconds (9.4-12.1) H 05/01/16 03:57 Abnormal lab findings: Abnormal lab results RBC 3.82 M/mcL (4.19-5.50) L 05/02/16 04:25 Hgb 12.2 g/dL (12.9-16.9) L 05/02/16 04:25 Hct 37.1 % (37.5-50.1) L 05/02/16 04:25 Immature Plt Fraction 7.3 % (1.1-6.1) H 04/30/16 02:35 PT 14.2 Seconds (9.4-12.1) H 05/01/16 03:57 APTT 86.1 Seconds (26.0-36.0) H 04/30/16 Unknown ABG pO2 164 mmHg (85-104) H 04/28/16 08:13 ABG HCO3 29.2 mEQ/L (21-27) H 04/28/16 08:13 ABG Total CO2 30.6 mEq/L (20-26) H 04/28/16 08:13 ABG O2 Saturation 99 % (95-98) H 04/28/16 08:13 ABG Base Excess 4.0 mEq/L (-2.0 to 3.0) H 04/28/16 08:13 Carbon Dioxide 30 mEq/L (19-29) H 05/02/16 04:25 BUN 58 mg/dL (8-26) H 05/02/16 04:25 Creatinine 2.27 mg/dL (0.72-1.25) H 05/02/16 04:25 Est GFR ( Amer) 34 (> 60) L 05/02/16 04:25 Est GFR (Non-Af Amer) 28 (> 60) L 05/02/16 04:25 POC Glucose 140 (58-89) H 04/28/16 18:55 Hemoglobin A1c 5.8 % (-5.6) H 04/29/16 02:28 Calculated Osmolality 310 (280-300) H 05/02/16 04:25 Uric Acid 15.9 mg/dL (3.5-7.2) H 04/30/16 02:35 Calcium 8.4 mg/dL (8.6-10.8) L 05/02/16 04:25 Phosphorus 5.4 mg/dL (2.3-4.7) H 04/30/16 02:35 AST 110 Units/L (5-34) H 04/29/16 02:28 Troponin I > 50.00 ng/mL (0-0.03) H* 04/28/16 08:00 B-Natriuretic Peptide 2025 pg/mL (0-100) H 04/29/16 02:28 Albumin 2.7 g/dL (3.5-5.0) L 04/30/16 02:35 Albumin/Globulin Ratio 0.9 (1.1-2.2) L 04/29/16 02:28 LDL Cholesterol, Calc 124 mg/dL (0-99) H 04/28/16 08:00 HDL Cholesterol 36 mg/dL (40-59) L 04/28/16 08:00 Cholesterol/HDL Ratio 5.0 (0-4.9) H 04/28/16 08:00 Vitamin B12 > 2000 pg/mL (213-816) H 04/30/16 02:35 PTH Intact 250.8 pg/ml (8.5-72.5) H 04/30/16 02:35 Ur Specimen Adequacy See below A 04/28/16 08:32 Urine Color Red (Yellow) A 04/29/16 16:00 Urine Clarity Turbid (Clear) A 04/29/16 16:00 Urine Protein 30 mg/dL (Neg-Trace) H 04/29/16 16:00 Urine Blood Large (Negative) H 04/29/16 16:00 Ur Leukocyte Esterase Large (Negative) H 04/29/16 16:00 Urine Microscopic RBC TNTC per hpf (0-3) H 04/29/16 16:00 Urine Microscopic WBC 15-30 per hpf (0-3) H 04/29/16 16:00 Ur Squamous Epith Cells Many per lpf (None-Few) H 04/29/16 16:00 Ur Culture Indicated? YES (NO) A 04/29/16 16:00 Microalb/Creat Ratio 61 (0-30) H 04/29/16 17:04 Protein/Creatinin Ratio 0.21 mg/mg (0-0.20) H 04/29/16 17:04 Urine Total Protein 15 mg/dL (1-14) H 04/29/16 17:04 - Microbiology Findings Microbiology Findings: Microbiology, Last 48 Hours 04/29/16 16:00 Urine Culture - Final Urine,Clean Catch No growth. - Clinical Findings Intake & Output: Intake & Output 05/01/16 05/02/16 05/02/16 23:59 07:59 15:59 Intake Total 265.7 / 265.7 100 / 100 Output Total 1999 725 / 725 Balance -1734.3 / -1734.3 -725 / -725 100 / 100 - VTE Documentation of Mechanical Device: Intermittent pneumatic compression device Consult Discharge Plan - Plan Referrals: Tavares Palumbo, SECONDARY HISTORY TEACHER [Primary Care Provider] -
--- NOTE | 2016-05-02 09:11 | Cardiology Progress Note ---
<Cosme Friedman - Last Filed: 05/02/16 11:38> Date of Encounter: 05/02/16 Time of Encounter: 09:09 Assessment and Plan (1) Acute coronary syndrome Current Visit: Yes Status: Acute Patient found to have proximal LAD lesion that was stented in the golf course laborer on . Transfer out of ICU today by primary. Agree to plan. D/c Cardizem drip. Begin Cardizem PO 90 mg Q8H with 4 hour overlap with drip. (2) Acute decompensated heart failure Current Visit: Yes Status: Acute Lasix drip d/c'd Lasix IV scheduled doses Improved dyspnea overall (3) Acute respiratory failure Current Visit: Yes Status: Acute On NC O2 Started on steroids today by primary team Qualifiers: Respiratory failure complication: hypoxia Qualified Code(s): J96.01 - Acute respiratory failure with hypoxia (4) Atrial fibrillation Current Visit: Yes Status: Acute Management per above Qualifiers: Atrial fibrillation type: unspecified Qualified Code(s): I48.91 - Unspecified atrial fibrillation Discussion w patient/family: The assessment and plan as outlined above was discussed with the patient and/or family members who expressed understanding and agreement. All questions were answered. Thank you for involving us in the care of your patient. Please call with any questions. Subjective Principal diagnosis: ACS Interval history: Patient had proximal LAD lesion on cath and received stent placement at that time. He underwent HD yesterday. Patient continued to experience large amount of urinary output on lasix drip. Patient claims to still feel slightly winded but better than previous days. Objective Vital Signs, Last 4 Hours Temp Pulse Resp BP Pulse Ox 05/02/16 07:46 98.0 F 05/02/16 07:36 85 05/02/16 07:00 92 14 118/89 97 05/02/16 06:00 86 16 128/67 95 General: Conversant, No Apparent Distress HEENT: Atraumatic, Mucus Membranes Moist Neck: No JVD, Other (Left IJ HD catheter in place.) Cardiac: Reg Rate and Rhythm, Normal S1 and S2 Lungs: Other (Rhonchi diffuse on examination) Neuro: Alert and responsive Abdomen: Soft, Non-Tender Skin: No rashes noted on visualized skin Musculoskeletal: No Chest Wall Tenderness Extremities: No Clubbing, No Cyanosis, Other (trace pedal edema) Results 05/02/16 04:25 05/02/16 04:25 Lab Results 05/02/16 05/02/16 04:25 04:25 WBC 6.1 Hgb 12.2 L Hct 37.1 L Plt Count 162 Sodium 142 Potassium 3.8 Chloride 102 Carbon Dioxide 30 H BUN 58 H Creatinine 2.27 H Glucose 99 Calcium 8.4 L - Imaging and Cardiology Cardiac cath: report reviewed - VTE Documentation of Mechanical Device: Intermittent pneumatic compression device Consult Discharge Plan - Plan Referrals: Tavares Palumbo, HR ADVISOR [Primary Care Provider] - - Attending Attestation I examined this patient and my medical decision-making was reviewed with the Resident Physician. I agree with the documented findings, disposition and treatment plan as described except to the extent set forth below. <Ruddy Mehta - Last Filed: 05/02/16 12:35> Assessment and Plan (1) Acute coronary syndrome Current Visit: Yes Status: Acute Discussion w patient/family: The assessment and plan as outlined above was discussed with the patient and/or family members who expressed understanding and agreement. All questions were answered. Thank you for involving us in the care of your patient. Please call with any questions. Objective Vital Signs, Last 4 Hours Resp Pulse Ox 05/02/16 09:57 14 94 L Results 05/02/16 04:25 05/02/16 04:25 Lab Results 05/02/16 05/02/16 04:25 04:25 WBC 6.1 Hgb 12.2 L Hct 37.1 L Plt Count 162 Sodium 142 Potassium 3.8 Chloride 102 Carbon Dioxide 30 H BUN 58 H Creatinine 2.27 H Glucose 99 Calcium 8.4 L Attestation Statement - Attestation Attestation: I examined this patient and my medical decision-making was reviewed with the FEATHER TRIMMER/PA/Advanced Practice Nurse/Resident Physician. I agree with the documented findings, disposition and treatment plan as described except to the extent set forth below. Pt is less sob, urine output increased. no CP stent placed in LAD VSS JVD: 6-7 cm Chest: Clear CVS: RRR a/w holding dialysis po lasix ok for transfer to tele PT OT
[2016-05-02] MEDS: Budesonide/Formoterol 160/4.5 MDI IH SCH ×2 (09:55→22:46)
--- NOTE | 2016-05-02 10:28 | Nephrology Progress Note ---
Date of Encounter: 05/02/16 Time of Encounter: 10:25 - Assessment and Plan (1) CKD (chronic kidney disease) Current Visit: Yes Status: Chronic CKD IV at baseline. Patient had LHC yesterday with stent placed in LAD. Patient underwent dialysis after the stent. Cr 2.27 today, which is improved from yesterday Cr of 2.76. Plan: -Continue to monitor Creatinin -No dialysis today. Consider need for dialysis tomorrow based on creatinin Qualifiers: Chronic kidney disease stage: stage 4 (severe) Qualified Code(s): N18.4 - Chronic kidney disease, stage 4 (severe) (2) Acute respiratory failure Current Visit: Yes Status: Acute Continues to improve Qualifiers: Respiratory failure complication: hypoxia Qualified Code(s): J96.01 - Acute respiratory failure with hypoxia (3) NSTEMI (non-ST elevated myocardial infarction) Current Visit: Yes Status: Acute LHC 05/01 with stent placed in LAD (4) Hypertension Current Visit: Yes Status: Chronic BP has been well controlled. Continue to titrate medications as necessary Qualifiers: Hypertension type: essential hypertension Qualified Code(s): I10 - Essential (primary) hypertension Subjective Principal diagnosis: ACS Interval history: Patient seen and examined. States he has had some improvement in his SOB from yesterday, but feels worn out today. He denies any other complaints. Objective - Vital Signs Vital signs: Vital Signs Temp Pulse Resp BP Pulse Ox 05/02/16 09:57 14 94 L 05/02/16 07:46 98.0 F 05/02/16 07:36 85 05/02/16 07:00 92 14 118/89 97 05/02/16 06:00 86 16 128/67 95 05/02/16 05:00 82 12 136/62 90 L 05/02/16 04:33 16 117/56 91 L 05/02/16 04:00 78 12 117/56 90 L 05/02/16 03:00 76 18 112/50 99 05/02/16 02:00 80 18 129/60 94 L 05/02/16 01:00 86 18 110/50 95 05/02/16 00:00 78 18 100/69 96 05/01/16 23:00 98.6 F 88 12 94/41 95 05/01/16 22:16 14 127/61 97 05/01/16 22:00 82 12 122/61 96 05/01/16 21:00 84 14 122/57 97 05/01/16 20:00 80 18 114/58 96 05/01/16 19:20 98.6 F 05/01/16 19:00 80 18 115/58 98 05/01/16 18:00 127 18 117/63 98 05/01/16 17:00 127 16 124/85 98 05/01/16 16:40 98.3 F 15 112/79 05/01/16 16:30 99/65 05/01/16 16:15 111/69 05/01/16 16:00 125 16 96/69 99 05/01/16 15:45 96.3 F L 101/69 05/01/16 15:38 24 96 05/01/16 15:30 129 16 118/78 97 05/01/16 15:15 104/75 05/01/16 15:11 125 05/01/16 15:00 126 18 134/66 98 05/01/16 14:45 125 16 112/67 98 05/01/16 14:30 97.9 F 141 20 96/59 97 05/01/16 14:15 140 20 105/65 99 05/01/16 14:10 121 20 107/76 95 05/01/16 14:05 76 18 112/77 98 05/01/16 14:00 76 20 125/67 98 05/01/16 13:55 77 20 117/64 99 05/01/16 13:50 76 18 133/71 98 05/01/16 13:45 75 18 124/61 98 05/01/16 13:40 77 16 125/63 98 05/01/16 13:35 75 18 125/63 98 05/01/16 11:41 97.9 F 05/01/16 11:11 77 05/01/16 11:05 76 18 117/57 99 05/01/16 10:39 12 99 Intake and Output 05/01/16 05/02/16 05/02/16 23:59 07:59 15:59 Intake Total 265.7 / 265.7 100 / 100 Output Total 1999 725 / 725 Balance -1734.3 / -1734.3 -725 / -725 100 / 100 Intake: IV Fluids 25.7 / 25.7 100 / 100 Cardizem 125 MG In 25.7 / 25.7 Dextrose 5% 100 ML @ 10 MG/HR 10 mls/hr IVC . [id number] SOLE Rx#: [id number] Lasix 240 MG In Dextrose 100 / 100 5% 96 ML @ 10 MG/HR 5 mls /hr IVC .Q24H SOLE Rx#: [id number] Oral 240 / 240 Output: Urine 0 / 0 Total Dialysis Output 600 / 600 Catheter 1400 / 1400 725 / 725 Other: Stool Size Moderate Stool Consistency soft formed Stool Color Brown # Bowel Movements 1 Hemodialysis Net Fluid 0 Removed (mL) - General Appearance General appearance: Present: well-developed, well-nourished, appears started age EENT: Present: ATNC, mucous membranes moist Neck: Present: no JVD, no thyromegaly, no carotid bruit, supple Respiratory: Present: rhonchi Cardiology: Present: no murmurs, no rub, no gallops, edema, regular rate, regular rhythm, normal S1, normal S2 Gastrointestinal: Present: normoactive bowel sounds, no tenderness, no guarding Integumentary: Present: no rash, warm and dry Neurologic: Present: no focal deficit, alert and oriented x3 Musculoskeletal: Present: no deformities, no erythema, no cyanosis, no clubbing Psychiatric: Present: mood/affect appropriate, cooperative - Lab 05/02/16 04:25 05/02/16 04:25 Most recent lab results ABG pH 7.42 pH Units (7.32-7.45) 04/28/16 08:13 ABG pCO2 45 mmHg (35-45) 04/28/16 08:13 ABG pO2 164 mmHg (85-104) H 04/28/16 08:13 ABG HCO3 29.2 mEQ/L (21-27) H 04/28/16 08:13 ABG O2 Saturation 99 % (95-98) H 04/28/16 08:13 Calcium 8.4 mg/dL (8.6-10.8) L 05/02/16 04:25 Phosphorus 5.4 mg/dL (2.3-4.7) H 04/30/16 02:35 Magnesium 2.1 mg/dL (1.6-2.6) 04/28/16 08:00 Urine Creatinine 71 mg/dL 04/29/16 17:04 Urine Total Protein 15 mg/dL (1-14) H 04/29/16 17:04 - VTE Documentation of Mechanical Device: Intermittent pneumatic compression device Consult Discharge Plan - Plan Referrals: Tavares Palumbo, EVELYN [Primary Care Provider] -
--- NOTE | 2016-05-02 11:58 | Electrocardiograph Report ---
[address] [place] [address] Test Date: 2016-05-01 Pat Name: Skip Gonzalez Department: 109 Room: [facility] Gender: M [employer] Senior Project Manager: : [id number] Requested By: Ene Goldstein Order Number: [id number] Reading MD: Justin Tracy MD Measurements Intervals [place] Rate: 129 P: NV: 0 QRS: 259 QRSD: 149 T: 42 QT: 344 QTc: 420 Interpretive Statements ATRIAL FIBRILLATION WITH RAPID VENTRICULAR RESPONSE MARKED RIGHT AXIS DEVIATION RIGHT BUNDLE BRANCH BLOCK INFERIOR MYOCARDIAL INFARCTION, OF INDETERMINATE AGE ANTEROLATERAL MYOCARDIAL INFARCTION, OF INDETERMINATE AGE Electronically Signed On 05-02-2016 11:56:42 EST by Justin Tracy MD
--- NOTE | 2016-05-02 13:42 | Event Note ---
Date of Encounter: 05/02/16 Time of Encounter: 10:00 Seen at bedside in ICU Being comanaged with renal, patient care secretary and Cardiology Awaiting bed availability for transfer to Denies new complains Patient being managed for NSTEMI with Acute systolic CHF (on lasix drip), s/p LHC with PCI, Cardiogenic shock (resolved) with shock liver (improving), ZECHARIAH on CKD (that required one HD session), Afib with RVR on cardizem drip, HTN and acute respiratory failure Physical Eam VSS (on cardizem drip at time of review) Gen: NAD HEENT: Right Shiley, no surrounding tenderness Chest: CTAB, no wheezing Heart: S1, S2, irregular but normal rate Abdomen: Not tender, Wright draining clear urine Extremities: Trace edema Labs and Imaging reviewed Plan is to transfer to as soon as bed is available Continue other care
[2016-05-02] MEDS: *HR* LORazepam 2 MG/ML VIAL IVP PRN (21:56)
[2016-05-02 22:16] LABS: Beta Globulin (PEP) 0.63 g/dL (0.48-1.10)
[2016-05-03] MEDS: *HR* LORazepam 2 MG/ML VIAL IVP PRN ×2 (05:17→23:42)
[2016-05-03] MEDS: Ipratropium/Albuterol Neb 3 ML IH SCH ×3 (05:53→11:12)
[2016-05-03 06:32] LABS: Calcium 7.9 mg/dL (8.6-10.8); Potassium 3.8 mEq/L (3.5-4.5)
[2016-05-03 08:03] LABS: IFE Reflexed IFE Done
[2016-05-03 08:04] LABS: Immunoglobulin A 152 mg/dL (68-408); Immunoglobulin G 716 mg/dL (768-1632); Immunoglobulin M 77 mg/dL (35-263)
[2016-05-03] MEDS: Nystatin SUSP 5 ML UD.LIQ PO SCH ×4 (08:54→21:22)
[2016-05-03] MEDS: Furosemide 40 MG TABLET PO SCH (08:55)
[2016-05-03] MEDS: Aspirin 81 MG TAB.CHEW PO SCH (08:55)
[2016-05-03] MEDS: predniSONE 20 MG TABLET PO SCH (08:55)
[2016-05-03] MEDS: Budesonide/Formoterol 160/4.5 MDI IH SCH ×2 (11:10→20:13)
--- NOTE | 2016-05-03 11:10 | Nephrology Progress Note ---
Date of Encounter: 05/03/16 Time of Encounter: 11:06 - Assessment and Plan (1) CKD (chronic kidney disease) Current Visit: Yes Status: Chronic CKD IV at baseline. Patient had C 05/01 with stent placed in LAD. Patient underwent dialysis after the stent. Cr 2.76 on 05/01. Cr 2.27 05/02, Cr 05/03 2.. Creatinine continues to improve. No need for dialysis today. Plan: -Continue to monitor Creatinine -No dialysis today. Consider need for dialysis tomorrow based on creatinine -If continues to improve over the weekend, consider removing HD catheter on Saturday. Qualifiers: Qualified Code(s): N18.4 - Chronic kidney disease, stage 4 (severe) (2) Acute respiratory failure Current Visit: Yes Status: Acute Continues to improve Qualifiers: Qualified Code(s): J96.01 - Acute respiratory failure with hypoxia (3) NSTEMI (non-ST elevated myocardial infarction) Current Visit: Yes Status: Acute [facility] 05/01 with stent placed in LAD (4) Hypertension Current Visit: Yes Status: Chronic BP has been well controlled. Continue to titrate medications as necessary Qualifiers: Qualified Code(s): I10 - Essential (primary) hypertension Subjective Principal diagnosis: ACS Interval history: Patient seen and examined. States he has had some improvement in his SOB from yesterday, but still has exertional dsypnea. He still feels worn out today, but states it has improved slightly from yesterday. He denies any other complaints. Objective - Vital Signs Vital signs: Vital Signs Temp Pulse Resp BP Pulse Ox 05/03/16 08:00 70 05/03/16 07:31 97.5 F L 05/03/16 03:40 97.8 F 70 20 116/70 95 05/02/16 23:53 98.0 F 05/02/16 23:45 74 16 119/59 95 05/02/16 22:47 20 132/61 97 05/02/16 20:11 97.9 F 05/02/16 19:35 83 22 132/61 96 05/02/16 16:46 18 95 05/02/16 15:50 81 05/02/16 15:00 97.7 F 84 18 143/70 95 05/02/16 11:25 81 Intake and Output 02/05/03/16 05/03/16 23:59 07:59 15:59 Intake Total 0 / 0 500 / 500 120 / 120 Output Total 325 / 325 100 / 100 Balance -325 / -325 400 / 400 120 / 120 Intake: Oral 0 / 0 500 / 500 120 / 120 Output: Catheter 325 / 325 100 / 100 Other: Meal Breakfast Percent of Meal Consumed 10% Stool Size Large Moderate Stool Consistency formed loose Stool Color Brown Brown # Bowel Movements 1 - General Appearance General appearance: Present: well-developed, well-nourished, appears started age EENT: Present: ATNC, mucous membranes moist Neck: Present: no JVD, no thyromegaly, supple Respiratory: Present: rhonchi Cardiology: Present: no murmurs, no rub, no gallops, no edema, regular rate, regular rhythm, normal S1, normal S2 Gastrointestinal: Present: normoactive bowel sounds, no tenderness, no guarding Integumentary: Present: no rash, warm and dry Neurologic: Present: no focal deficit, alert and oriented x3 Musculoskeletal: Present: no erythema, no cyanosis, no clubbing Psychiatric: Present: mood/affect appropriate, cooperative - Lab 05/02/16 04:25 05/03/16 05:30 Most recent lab results ABG pH 7.42 pH Units (7.32-7.45) 04/28/16 08:13 ABG pCO2 45 mmHg (35-45) 04/28/16 08:13 ABG pO2 164 mmHg (85-104) H 04/28/16 08:13 ABG HCO3 29.2 mEQ/L (21-27) H 04/28/16 08:13 ABG O2 Saturation 99 % (95-98) H 04/28/16 08:13 Calcium 7.9 mg/dL (8.6-10.8) L 05/03/16 05:30 Phosphorus 5.4 mg/dL (2.3-4.7) H 04/30/16 02:35 Magnesium 2.1 mg/dL (1.6-2.6) 04/28/16 08:00 Urine Creatinine 71 mg/dL 04/29/16 17:04 Urine Total Protein 15 mg/dL (1-14) H 04/29/16 17:04 - VTE Documentation of Mechanical Device: Intermittent pneumatic compression device Consult Discharge Plan - Plan Referrals: Linwood,Tavares W, EVELYN [Primary Care Provider] -
[2016-05-03] MEDS: Tiotropium 18 MCG inhalation IH SCH (11:13)
--- NOTE | 2016-05-03 11:18 | Cardiology Progress Note ---
<Cosme Friedman - Last Filed: 05/03/16 11:16> Date of Encounter: 05/03/16 Time of Encounter: 09:15 Assessment and Plan (1) Acute coronary syndrome Current Visit: Yes Status: Acute Patient found to have proximal LAD lesion that was stented in the cardiac cath lab technologist on . Transfer out of ICU today by primary. Agree to plan. PO cardizem and scheduled IV lasix. (2) Acute decompensated heart failure Current Visit: Yes Status: Acute Lasix drip d/c'd Lasix IV scheduled doses Improved dyspnea overall (3) Acute respiratory failure Current Visit: Yes Status: Acute Continues to improve Qualifiers: Respiratory failure complication: hypoxia Qualified Code(s): J96.01 - Acute respiratory failure with hypoxia (4) Atrial fibrillation Current Visit: Yes Status: Acute Management per above Qualifiers: Atrial fibrillation type: unspecified Qualified Code(s): I48.91 - Unspecified atrial fibrillation Discussion w patient/family: The assessment and plan as outlined above was discussed with the patient and/or family members who expressed understanding and agreement. All questions were answered. Thank you for involving us in the care of your patient. Please call with any questions. Subjective Principal diagnosis: ACS Interval history: Patient feeling much better this morning. Renal function continues to improve. Transfer out of ICU pending. Objective Vital Signs, Last 4 Hours Temp Pulse Resp Pulse Ox 05/03/16 11:13 20 99 05/03/16 08:00 70 05/03/16 07:31 97.5 F L General: Conversant, No Apparent Distress HEENT: Atraumatic, Normocephaly, Mucus Membranes Moist Neck: No JVD, Normal carotid pulses Cardiac: Normal S1 and S2, No Murmur Lungs: Other (Coarse breath sounds with mild diffuse wheezing) Neuro: Alert and responsive, No focal deficits noted Abdomen: Soft, Non-Tender Skin: No rashes noted on visualized skin Musculoskeletal: No Chest Wall Tenderness Extremities: No Clubbing, No Cyanosis, Other (Trace pitting edema noted.) Results 05/02/16 04:25 05/03/16 05:30 Lab Results 05/03/16 05:30 Sodium 142 Potassium 3.8 Chloride 104 Carbon Dioxide 27 BUN 60 H Creatinine 2.21 H Glucose 114 H Calcium 7.9 L - VTE Documentation of Mechanical Device: Intermittent pneumatic compression device Consult Discharge Plan - Plan Referrals: Tavares Palumbo, ENTERPRISE APPLICATION ARCHITECT [Primary Care Provider] - - Attending Attestation I examined this patient and my medical decision-making was reviewed with the Resident Physician. I agree with the documented findings, disposition and treatment plan as described except to the extent set forth below. <Ruddy Mehta G - Last Filed: 05/03/16 13:20> Assessment and Plan (1) Acute coronary syndrome Current Visit: Yes Status: Acute Discussion w patient/family: The assessment and plan as outlined above was discussed with the patient and/or family members who expressed understanding and agreement. All questions were answered. Thank you for involving us in the care of your patient. Please call with any questions. Objective Vital Signs, Last 4 Hours Temp Resp Pulse Ox 05/03/16 11:38 97.9 F 05/03/16 11:13 20 99 Results 05/02/16 04:25 05/03/16 05:30 Lab Results 05/03/16 05:30 Sodium 142 Potassium 3.8 Chloride 104 Carbon Dioxide 27 BUN 60 H Creatinine 2.21 H Glucose 114 H Calcium 7.9 L Attestation Statement - Attestation Attestation: I examined this patient and my medical decision-making was reviewed with the BOARD OF DIRECTORS/PA/Advanced Practice Nurse/Resident Physician. I agree with the documented findings, disposition and treatment plan as described except to the extent set forth below. pt is much better, less sob, no pnd, cough urine output is better VSS JVD: 6-7 cm Chest clear CVS: soft s3 Doing well post stent ok for tele PT OT trend renal function clinically has no signs of CHF
--- NOTE | 2016-05-03 11:41 | Event Note ---
Date of Encounter: 05/03/16 Time of Encounter: 11:34 Patient examined, chart and all data reviewed as well as recent imaging studies. The patient continues to produce reasonable amount of urine spontaneously following administration of Lasix. The patient's hemodynamics have remained acceptable and the bedside monitor continues to disclose paroxysmal atrial fibrillation. This morning, Mr. Gonzalez notes an improvement of respiratory status (reduction of orthopnea cough and chest congestion). Examination reveals an elderly male who is awake and alert in no distress. Goals were reviewed. Chest auscultation reveals rhonchi bilaterally diminished breath sounds throughout mildly prolonged expiratory phase. Cardiac exam is notable for a regular rate faint apical murmur. Abdominal exam was unremarkable. His extremities were warm to touch. He is neurologically fully intact. Mr Gonzalez will be maintained on current therapies for treatment of COPD. Systemic steroids will be continued in light of persistent chest congestion and rhonchi. It is my anticipation that steroid can be discontinued presumably within the next 5-7 days. Long-term management of this gentleman's COPD should include use of Spiriva inhaler and Symbicort as well as PRN albuterol. The patient may require supplemental oxygen if room air saturation values are less than 88% via pulse oximetry. Given the patient's paroxysmal atrial fibrillation and risk of stroke which is substantial, and given renal dysfunction (currently improving), the best strategy for stroke prevention would be addition of Coumadin. Anticoagulation can be managed by the pharmacy service during the current hospitalization. This will be a lifelong medication that will require careful monitoring in light of the patient's age and comorbidities. My perspective, the patient can be transferred out of the intensive care unit. Any questions arise or if additional management is required from a pulmonary critical care viewpoint, please feel free to contact me. Raulito Monsivais [phone]
--- NOTE | 2016-05-03 12:08 | Pulmonology Progress Note ---
Date of Encounter: 05/03/16 Time of Encounter: 12:20 Assessment and Plan (1) Acute coronary syndrome Current Visit: Yes Status: Acute Patient reported several days worsening shortness of breath and exertional dyspnea prior to presentation to the hospital. Found to have troponins > 50.0 at admission, no ST elevations noted on EKG. Previously started on heparin drip , nitro drip. Given patient's serum creatinine of 3.02>3.18, there was concern for contrast-induced nephropathy if patient were to undergo catheterization. S/P LHC with PCI on 05/02/16. Drug-eluting stent to proximal left anterior descending coronary artery. Underwent dialysis after LHC. Currently on Cardizem drip, working to switch to PO medication. ELISA-VASC score 5 (age, HTN, CHF, [place]). Suggesting triple therapy with the addition of Coumadin (with Heparin bridge) to existing Plavix and Aspirin. Appreciate cardiology recommendation for continued management/care. *Patient is stable to leave the intensive care unit pending available bed, but we are happy to assist in medical management pending transfer from the unit. (2) NSTEMI (non-ST elevated myocardial infarction) Current Visit: Yes Status: Acute Plan as above. (3) Acute decompensated heart failure Current Visit: Yes Status: Acute Improving. Given patient's shortness of breath, concern for decompensation of patient's known heart failure. We will continue oxygen supplementation as needed and continue careful diuresis. (4) Acute respiratory failure Current Visit: Yes Status: Acute Patient maintaining adequate oxygen saturation on nasal cannula, continue supplemental oxygen as needed by patient Continue supplemental oxygen as needed, wean as tolerated Continue to monitor via continuous pulse ox Continue breathing treatments and begin prednisone 40mg PO daily. Qualifiers: Respiratory failure complication: hypoxia Qualified Code(s): J96.01 - Acute respiratory failure with hypoxia (5) CKD (chronic kidney disease) Current Visit: Yes Status: Chronic Cr continues to improve 3.02>3.18>2.76>2.27>2.21 Catheter placed on 04/30/16 for temporary hemodialysis after LHC on 05/01/16. Restarted home lasix dose of 40mg daily. Urine output of 1.6L yesterday. We will avoid potentially nephrotoxic agents Followed by nephrology, Dr. Haney. Qualifiers: Chronic kidney disease stage: stage 4 (severe) Qualified Code(s): N18.4 - Chronic kidney disease, stage 4 (severe) (6) DVT prophylaxis Current Visit: Yes Status: Acute GI prophylaxis: Pantoprazole DVT prophylaxis: To discuss with cardio, possibility of starting coumadin. Neuro/sedation: No concerns at this time Cardiovascular: NSTEMI, CHF. Underwent LHC. See assessment above. Pulmonary: Patient complains of exertional dyspnea, shortness of breath. Known history of COPD on several inhalers at home. Will continue patient inhalers and supplement O2 as needed by patient. Prednisone 40mg daily. GI: Stress ulcer prophylaxis with pantoprazole Renal: See CKD assessment. Endocrine: No concerns at this time : No further hematuria noted. CODE STATUS: Full code Subjective Principal diagnosis: ACS Interval history: Patient sitting up eating lunch during examination. Today is patient's anniversary, he is looking forward to his visiting. He states he has continued shortness of breath, slightly better than yesterday with continuing sputum production. Denies any difficulties eating/swallowing. Afebrile. Having bowel movements. Objective PUL Vital signs: Last Vital Signs Temp 97.9 F 05/03/16 11:38 Pulse 70 05/03/16 08:00 Resp 20 05/03/16 11:13 BP 116/70 05/03/16 03:40 Pulse Ox 99 05/03/16 11:13 General appearance: no acute distress, alert Eyes: nonicteric ENT: oropharynx moist Neck: supple Effort: normal Auscultation: bilateral: wheezes, rhonchi Cardiovascular: regular rate and rhythm Gastrointestinal: normoactive bowel sounds, soft, non-tender, non-distended Integumentary: normal Extremities: no cyanosis, no edema, no clubbing, pink and warm Musculoskeletal: no deformities Gait: normal posture normal mental status, non-focal exam mood appropriate, affect normal Results - Laboratory Findings CBC and BMP: 05/02/16 04:25 05/03/16 05:30 ABG ABG pH 7.42 pH Units (7.32-7.45) 04/28/16 08:13 ABG pCO2 45 mmHg (35-45) 04/28/16 08:13 ABG pO2 164 mmHg (85-104) H 04/28/16 08:13 ABG O2 Saturation 99 % (95-98) H 04/28/16 08:13 PT/INR, D-dimer PT 14.2 Seconds (9.4-12.1) H 05/01/16 03:57 Abnormal lab findings: Abnormal lab results RBC 3.82 M/mcL (4.19-5.50) L 05/02/16 04:25 Hgb 12.2 g/dL (12.9-16.9) L 05/02/16 04:25 Hct 37.1 % (37.5-50.1) L 05/02/16 04:25 Immature Plt Fraction 7.3 % (1.1-6.1) H 04/30/16 02:35 PT 14.2 Seconds (9.4-12.1) H 05/01/16 03:57 APTT 86.1 Seconds (26.0-36.0) H 04/30/16 Unknown ABG pO2 164 mmHg (85-104) H 04/28/16 08:13 ABG HCO3 29.2 mEQ/L (21-27) H 04/28/16 08:13 ABG Total CO2 30.6 mEq/L (20-26) H 04/28/16 08:13 ABG O2 Saturation 99 % (95-98) H 04/28/16 08:13 ABG Base Excess 4.0 mEq/L (-2.0 to 3.0) H 04/28/16 08:13 BUN 60 mg/dL (8-26) H 05/03/16 05:30 Creatinine 2.21 mg/dL (0.72-1.25) H 05/03/16 05:30 Est GFR ( Amer) 35 (> 60) L 05/03/16 05:30 Est GFR (Non-Af Amer) 29 (> 60) L 05/03/16 05:30 BUN/Creatinine Ratio 27 (6-26) H 05/03/16 05:30 Glucose 114 mg/dL (70-99) H 05/03/16 05:30 POC Glucose 140 (58-89) H 04/28/16 18:55 Hemoglobin A1c 5.8 % (-5.6) H 04/29/16 02:28 Calculated Osmolality 312 (280-300) H 05/03/16 05:30 Uric Acid 15.9 mg/dL (3.5-7.2) H 04/30/16 02:35 Calcium 7.9 mg/dL (8.6-10.8) L 05/03/16 05:30 Phosphorus 5.4 mg/dL (2.3-4.7) H 04/30/16 02:35 AST 110 Units/L (5-34) H 04/29/16 02:28 Troponin I > 50.00 ng/mL (0-0.03) H* 04/28/16 08:00 B-Natriuretic Peptide 2025 pg/mL (0-100) H 04/29/16 02:28 Total Protein (PEP) 5.90 g/dL (6.00-8.30) L 04/30/16 02:35 Albumin 2.7 g/dL (3.5-5.0) L 04/30/16 02:35 Albumin (PEP) 3.03 g/dL (3.75-5.01) L 04/30/16 02:35 Albumin/Globulin Ratio 0.9 (1.1-2.2) L 04/29/16 02:28 Qoizg-4-Eireqdsly 0.47 g/dL (0.19-0.46) H 04/30/16 02:35 Aamuo-7-Wtjpvjgtt 1.10 g/dL (0.48-1.05) H 04/30/16 02:35 LDL Cholesterol, Calc 124 mg/dL (0-99) H 04/28/16 08:00 HDL Cholesterol 36 mg/dL (40-59) L 04/28/16 08:00 Cholesterol/HDL Ratio 5.0 (0-4.9) H 04/28/16 08:00 Vitamin B12 > 2000 pg/mL (213-816) H 04/30/16 02:35 PTH Intact 250.8 pg/ml (8.5-72.5) H 04/30/16 02:35 Ur Specimen Adequacy See below A 04/28/16 08:32 Urine Color Red (Yellow) A 04/29/16 16:00 Urine Clarity Turbid (Clear) A 04/29/16 16:00 Urine Protein 30 mg/dL (Neg-Trace) H 04/29/16 16:00 Urine Blood Large (Negative) H 04/29/16 16:00 Ur Leukocyte Esterase Large (Negative) H 04/29/16 16:00 Urine Microscopic RBC TNTC per hpf (0-3) H 04/29/16 16:00 Urine Microscopic WBC 15-30 per hpf (0-3) H 04/29/16 16:00 Ur Squamous Epith Cells Many per lpf (None-Few) H 04/29/16 16:00 Ur Culture Indicated? YES (NO) A 04/29/16 16:00 Microalb/Creat Ratio 61 (0-30) H 04/29/16 17:04 Protein/Creatinin Ratio 0.21 mg/mg (0-0.20) H 04/29/16 17:04 Urine Total Protein 15 mg/dL (1-14) H 04/29/16 17:04 IgG 716 mg/dL (768-1632) L 04/30/16 02:35 - Clinical Findings Intake & Output: Intake & Output 05/02/16 05/03/16 05/03/16 23:59 07:59 15:59 Intake Total 0 / 0 500 / 500 120 / 120 Output Total 325 / 325 100 / 100 150 / 150 Balance -325 / -325 400 / 400 -30 / -30 - VTE Documentation of Mechanical Device: Intermittent pneumatic compression device Consult Discharge Plan - Plan Referrals: Tavares Palumbo, DIGITAL MARKETING STRATEGIST [Primary Care Provider] -
--- NOTE | 2016-05-03 16:38 | Internal Med Progress Note ---
Date of Encounter: 05/03/16 Time of Encounter: 13:30 - Assessment and plan (1) Atrial fibrillation Current Visit: Yes Status: Acute Assessment and plan: Rate controlled on current medications ELISA-VASC score 5 (age, HTN, CHF, [place]). Continue ASA and Plavix Poor candidate for custodial anticoagulation due to age and risk of falls Qualifiers: Atrial fibrillation type: unspecified Qualified Code(s): I48.91 - Unspecified atrial fibrillation (2) Acute coronary syndrome Current Visit: Yes Status: Acute Assessment and plan: Patient reported several days worsening shortness of breath and exertional dyspnea prior to presentation to the hospital. Found to have troponins > 50.0 at admission, no ST elevations noted on EKG. S/P LHC with PCI on 05/02/16. Drug-eluting stent to proximal left anterior descending coronary artery Continue ASA, Plavix, Diltiazem, Lopressor No ARB or ACEI due to ZECHARIAH on CKD Continue same medications (3) Acute decompensated heart failure Current Visit: Yes Status: Acute Assessment and plan: CHrEF ECHO prior to C with LVEF 35%, Moderate LVDD On lasix , continue other meds as above (4) Acute kidney injury superimposed on CKD Current Visit: Yes Status: Acute Assessment and plan: Improving Continue current meds, avoid nephrotoxins Per renal documentation, keep Shiley for now (5) Acute respiratory failure Current Visit: Yes Status: Acute Assessment and plan: Improving, continue O2 supplements Qualifiers: Respiratory failure complication: hypoxia Qualified Code(s): J96.01 - Acute respiratory failure with hypoxia (6) Hematuria Current Visit: Yes Status: Resolved Assessment and plan: Resolved (7) Transaminitis Current Visit: Yes Status: Acute Assessment and plan: Improving, possibly from shock liver (8) CKD (chronic kidney disease) stage 3, GFR 30-59 ml/min Current Visit: Yes Status: Chronic Assessment and plan: As in ZECHARIAH (9) Hypertension Current Visit: Yes Status: Chronic Assessment and plan: Controlled Qualifiers: Hypertension type: essential hypertension Qualified Code(s): I10 - Essential (primary) hypertension - Subjective Interval history: Patient being managed for NSTEMI with Acute systolic CHF (on lasix drip), s/p LHC with PCI, Cardiogenic shock (resolved) with shock liver (improving), ZECHARIAH on CKD (that required one HD session), Afib with RVR on cardizem drip, HTN and acute respiratory failure Patient is being co-managed with cardiology, nephrology and railroad signal and switch operator as he is physically still in intensive care due to lack of bed availability on the regular floors he is seen today sitting in chair, out of bed Denies new complains Patient is stable to be transferred out of the ICU to regular medicine floor - Constitutional Vitals: Temp Pulse Resp BP Pulse Ox 97.7 F 83 22 144/63 95 05/03/16 15:46 05/03/16 16:00 05/03/16 15:00 05/03/16 15:00 05/03/16 15:00 General appearance: Present: cooperative, A&O X 3, pleasant, no acute distress, answers questions appropriately Exam: VSS Gen: NAD HEENT: Right Blossom, no surrounding tenderness Chest: CTAB, no wheezing Heart: S1, S2, irregular but normal rate Abdomen: Not tender, Wright draining clear urine Extremities: Trace edema - Head Head exam: Present: atraumatic, normocephalic - Eye Eye exam: Present: PERRL, conjuntiva pink, sclera anicteric Pupils: Present: PERRL - Neck Neck exam general surgery: Present: supple, trachea midline. Absent: lymphadenopathy Additional comments: Right Blossom Internal Medicine: Result - Labs CBC & Chem 7: 05/02/16 04:25 05/03/16 05:30 Labs: BMP 05/03/16 05:30 Sodium 142 Potassium 3.8 Chloride 104 Carbon Dioxide 27 BUN 60 H Creatinine 2.21 H Glucose 114 H Calcium 7.9 L - ABG Interpretation ABG results: ABG ABG pH 7.42 pH Units (7.32-7.45) 04/28/16 08:13 ABG pCO2 45 mmHg (35-45) 04/28/16 08:13 ABG pO2 164 mmHg (85-104) H 04/28/16 08:13 ABG O2 Saturation 99 % (95-98) H 04/28/16 08:13 PT/INR, D-dimer PT 14.2 Seconds (9.4-12.1) H 05/01/16 03:57 - VTE Documentation of Mechanical Device: Intermittent pneumatic compression device Consult Discharge Plan - Plan Referrals: Tavares Palumbo, GRADER TENDER [Primary Care Provider] -
[2016-05-03] MEDS ORDERED: Warfarin perPT PO PRN (18:00)
[2016-05-03] MEDS: Albuterol 2.5 MG/3 ML NEBULIZER IH PRN (21:57)
[2016-05-04 04:05] LABS: INR 1.2; Prothrombin Time 12.8 Seconds (9.4-12.1)
[2016-05-04 04:11] LABS: Potassium 3.9 mEq/L (3.5-4.5)
[2016-05-04] MEDS: Albuterol 2.5 MG/3 ML NEBULIZER IH PRN ×2 (04:41→07:52)
[2016-05-04] MEDS: *HR* Metoprolol 5 MG/5 ML VIAL IVP PRN (06:09)
[2016-05-04] MEDS: Tiotropium 18 MCG inhalation IH SCH (07:50)
[2016-05-04] MEDS: Budesonide/Formoterol 160/4.5 MDI IH SCH ×2 (07:50→22:39)
--- NOTE | 2016-05-04 08:14 | Nephrology Progress Note ---
Date of Encounter: 05/04/16 Time of Encounter: 09:15 - Assessment and Plan (1) Acute kidney injury superimposed on CKD Current Visit: Yes Status: Acute Suspected ZECHARIAH but unknown baseline level of CKD (presuming perhaps stage III) SCr is improving. No need for HD If SCr continues to trend better, then will remove the temporary HD catheter Wright catheter is not needed from a renal perspective since the renal U/S did not demonstrate any hydronephrosis. Subjective Principal diagnosis: ACS Interval history: Pt was s/e on the 2A floor. He did not affirm N/V/D or uremic type symptoms. He has been eating well. Objective - Vital Signs Vital signs: Vital Signs Temp Pulse Resp BP Pulse Ox 05/04/16 07:12 97.3 F L 72 14 134/71 98 05/04/16 04:41 18 97 05/04/16 04:27 97.6 F 88 20 175/75 94 L 05/03/16 23:30 97.6 F 74 20 133/66 96 05/03/16 21:57 18 98 05/03/16 20:13 20 98 05/03/16 20:05 98.0 F 88 22 134/66 98 05/03/16 16:00 83 05/03/16 15:46 97.7 F 05/03/16 15:00 83 22 144/63 95 05/03/16 13:00 87 20 114/54 94 L 05/03/16 12:00 70 05/03/16 11:38 97.9 F 05/03/16 11:13 20 99 Intake and Output 05/03/16 05/04/16 05/04/16 23:59 07:59 15:59 Intake Total 480 / 480 Output Total 0 / 0 950 / 950 Balance 480 / 480 -950 / -950 Intake: Oral 480 / 480 Output: Urine 0 / 0 950 / 950 Other: Meal Dinner Percent of Meal Consumed 100% - General Appearance General appearance: Present: well-developed, well-nourished, appears started age , obese EENT: Present: ATNC, PERRL, mucous membranes moist Neck: Present: supple Respiratory: Present: clear Cardiology: Present: no edema, regular rate, regular rhythm, normal S1, normal S2 Dialysis Vascular Access: Venous Catheter (RIJ C/D/I) Gastrointestinal: Present: normoactive bowel sounds, no guarding Integumentary: Present: no rash, warm and dry Neurologic: Present: no focal deficit, no asterixis, alert and oriented x3 Musculoskeletal: Present: no deformities, no erythema, no cyanosis Psychiatric: Present: mood/affect appropriate, cooperative - Lab 05/02/16 04:25 05/04/16 03:30 Most recent lab results ABG pH 7.42 pH Units (7.32-7.45) 04/28/16 08:13 ABG pCO2 45 mmHg (35-45) 04/28/16 08:13 ABG pO2 164 mmHg (85-104) H 04/28/16 08:13 ABG HCO3 29.2 mEQ/L (21-27) H 04/28/16 08:13 ABG O2 Saturation 99 % (95-98) H 04/28/16 08:13 Calcium 8.0 mg/dL (8.6-10.8) L 05/04/16 03:30 Phosphorus 5.4 mg/dL (2.3-4.7) H 04/30/16 02:35 Magnesium 2.1 mg/dL (1.6-2.6) 04/28/16 08:00 Urine Creatinine 71 mg/dL 04/29/16 17:04 Urine Total Protein 15 mg/dL (1-14) H 04/29/16 17:04 - VTE Documentation of Mechanical Device: Intermittent pneumatic compression device Consult Discharge Plan - Plan Referrals: Tavares Palumbo CNP [Primary Care Provider] - 05/15/16 11:20 am
[2016-05-04] MEDS: Furosemide 40 MG TABLET PO SCH (08:35)
[2016-05-04] MEDS: Nystatin SUSP 5 ML UD.LIQ PO SCH ×2 (08:35→12:48)
[2016-05-04] MEDS: predniSONE 20 MG TABLET PO SCH (08:36)
[2016-05-04] MEDS: Aspirin 81 MG TAB.CHEW PO SCH (08:38)
[2016-05-04] MEDS: *HR* LORazepam 2 MG/ML VIAL IVP PRN ×2 (08:39→22:47)
--- NOTE | 2016-05-04 09:17 | Cardiology Progress Note ---
<Cosme Friedman - Last Filed: 05/04/16 09:54> Date of Encounter: 05/04/16 Time of Encounter: 09:14 Assessment and Plan (1) Acute coronary syndrome Current Visit: Yes Status: Acute Patient continues to improve. Patient on ASA and plavix. Elected not to place the patient on anti- coagulation at this time due to risk of fall and overall health status. We will re-evaluate in the outpatient setting. Patient already on statin. SHIELA-I will be held due to patient's baseline poor renal function. D/C the patient's Cardizem due to EF at 35%. Increase metoprolol to 25 mg BID. (2) Acute decompensated heart failure Current Visit: Yes Status: Acute Improving. Given patient's shortness of breath, concern for decompensation of patient's known heart failure. We will continue oxygen supplementation as needed and continue careful diuresis. (3) Acute respiratory failure Current Visit: Yes Status: Acute Patient maintaining adequate oxygen saturation on nasal cannula, continue supplemental oxygen as needed by patient Continue supplemental oxygen as needed, wean as tolerated Continue to monitor via continuous pulse ox Continue breathing treatments and begin prednisone 40mg PO daily. Qualifiers: Respiratory failure complication: hypoxia Qualified Code(s): J96.01 - Acute respiratory failure with hypoxia (4) Atrial fibrillation Current Visit: Yes Status: Acute Management per above Qualifiers: Atrial fibrillation type: unspecified Qualified Code(s): I48.91 - Unspecified atrial fibrillation Discussion w patient/family: The assessment and plan as outlined above was discussed with the patient and/or family members who expressed understanding and agreement. All questions were answered. Thank you for involving us in the care of your patient. Please call with any questions. Subjective Principal diagnosis: ACS Interval history: Patient feeling much better this morning. He continues to improve. SCr also improved. Patient urinating without difficulty. No further complaints. Objective Vital Signs, Last 4 Hours Temp Pulse Resp BP Pulse Ox 05/04/16 07:50 16 95 05/04/16 07:12 97.3 F L 72 14 134/71 98 General: Conversant, No Apparent Distress HEENT: Atraumatic, Normocephaly, Mucus Membranes Moist Neck: No JVD, Normal carotid pulses Cardiac: Normal S1 and S2 Lungs: Other (Coarse breath sounds) Neuro: Alert and responsive, No focal deficits noted Abdomen: Soft, Non-Tender Skin: No rashes noted on visualized skin Musculoskeletal: No Chest Wall Tenderness Extremities: No Clubbing, No Cyanosis, Normal Pulses Results 05/02/16 04:25 05/04/16 03:30 Lab Results 05/04/16 05/04/16 03:30 03:30 INR 1.2 Sodium 141 Potassium 3.9 Chloride 104 Carbon Dioxide 27 BUN 56 H Creatinine 2.00 H Glucose 128 H Calcium 8.0 L - VTE Documentation of Mechanical Device: Intermittent pneumatic compression device Consult Discharge Plan - Plan Referrals: Tavares Palumbo, EVENT MANAGER [Primary Care Provider] - 05/15/16 11:20 am - Attending Attestation I examined this patient and my medical decision-making was reviewed with the Resident Physician. I agree with the documented findings, disposition and treatment plan as described except to the extent set forth below. <Ruddy Mehta - Last Filed: 05/04/16 11:59> Assessment and Plan (1) Acute coronary syndrome Current Visit: Yes Status: Acute Discussion w patient/family: The assessment and plan as outlined above was discussed with the patient and/or family members who expressed understanding and agreement. All questions were answered. Thank you for involving us in the care of your patient. Please call with any questions. Objective Vital Signs, Last 4 Hours Temp Resp BP Pulse Ox 05/04/16 11:00 97.5 F L 14 158/69 98 Results 05/02/16 04:25 05/04/16 03:30 Lab Results 05/04/16 05/04/16 03:30 03:30 INR 1.2 Sodium 141 Potassium 3.9 Chloride 104 Carbon Dioxide 27 BUN 56 H Creatinine 2.00 H Glucose 128 H Calcium 8.0 L Attestation Statement - Attestation Attestation: I examined this patient and my medical decision-making was reviewed with the COMPLIANCE OFFICER/PA/Advanced Practice Nurse/Resident Physician. I agree with the documented findings, disposition and treatment plan as described except to the extent set forth below. Pt feels weak, but less sob , pnd VSS JVD: 6-7 cm Chest : clear CVS: no s3 a/w d/c Cardiazem PT OT will sign off needs to be seen in office in 1-2 weeks
--- NOTE | 2016-05-04 12:42 | Internal Med Progress Note ---
Date of Encounter: 05/04/16 Time of Encounter: 12:01 - Assessment and plan (1) Atrial fibrillation Current Visit: Yes Status: Acute Assessment and plan: Rate controlled on metoprolol, continue same ELISA-VASC score 5 (age, HTN, CHF, SC). Continue ASA and Plavix Poor candidate for alf anticoagulation due to age and risk of falls Qualifiers: Atrial fibrillation type: unspecified Qualified Code(s): I48.91 - Unspecified atrial fibrillation (2) Acute coronary syndrome Current Visit: Yes Status: Acute Assessment and plan: Patient reported several days worsening shortness of breath and exertional dyspnea prior to presentation to the hospital. Found to have troponins > 50.0 at admission, no ST elevations noted on EKG. S/P LHC with PCI on 05/02/16. Drug-eluting stent to proximal left anterior descending coronary artery Continue ASA, Plavix, Lopressor D/C Cardizem No ARB or ACEI due to ZECHARIAH on CKD Continue same medications (3) Acute decompensated heart failure Current Visit: Yes Status: Acute Assessment and plan: CHrEF ECHO prior to [facility] with LVEF 35%, Moderate LVDD On lasix , continue other meds as above (4) Acute kidney injury superimposed on CKD Current Visit: Yes Status: Acute Assessment and plan: Improving Continue current meds, avoid nephrotoxins Per renal documentation, keep Shiley for now (5) Acute respiratory failure Current Visit: Yes Status: Acute Assessment and plan: Improving, continue O2 supplement prn Qualifiers: Respiratory failure complication: hypoxia Qualified Code(s): J96.01 - Acute respiratory failure with hypoxia (6) Hematuria Current Visit: Yes Status: Resolved Assessment and plan: Resolved (7) Transaminitis Current Visit: Yes Status: Acute Assessment and plan: Improving, possibly from shock liver (8) CKD (chronic kidney disease) stage 3, GFR 30-59 ml/min Current Visit: Yes Status: Chronic Assessment and plan: As in ZECHARIAH (9) Hypertension Current Visit: Yes Status: Chronic Assessment and plan: Controlled Qualifiers: Hypertension type: essential hypertension Qualified Code(s): I10 - Essential (primary) hypertension - Subjective Interval history: Patient being managed for NSTEMI with Acute systolic CHF (on lasix drip), s/p LHC with PCI, Cardiogenic shock (resolved) with shock liver (improving), ZECHARIAH on CKD (that required one HD session), Afib with RVR on cardizem drip, HTN and acute respiratory failure Patient is seen sitting in chair out of bed, denies new complains, reports feeling better Renal function continues to improve, patient has had adequate diuresis with ~40 pounds weight loss, Cumulative I/O since admission -5000+ Plan to d/c urinary catheter today and Shiley catheter tmrw a.m if Chem is stable, I do not anticipate further need for HD anticipate d/c a.m tomorrow, plan of care discussed with patient, verbalized understanding r - Constitutional Vitals: Temp Pulse Resp BP Pulse Ox 97.5 F L 72 14 158/69 98 05/04/16 11:00 05/04/16 07:12 05/04/16 11:00 05/04/16 11:00 05/04/16 11:00 General appearance: Present: cooperative, A&O X 3, pleasant, no acute distress, answers questions appropriately - Head Head exam: Present: atraumatic - Eye Eye exam: Present: PERRL, conjuntiva pink, sclera anicteric - ENT ENT exam: Present: mucous membranes moist - Neck Additional comments: Left Shiley - Respiratory Respiratory exam: Present: CTAB (Few scattered rales, cleared with cough). Absent: accessory muscle use, rales, rhonchi, wheezes - Cardiovascular Cardiovascular exam: Present: irregular rhythm, +S1, +S2. Absent: diastolic murmur, gallop, rubs, systolic murmur - GI/Abdominal GI/Abdominal exam: Present: normal bowel sounds, soft, no peritoneal signs. Absent: distended, tenderness - Extremities Exam Extremities exam: Present: warm, radial pulses palpable and symetrical. Absent : calf tenderness, cyanotic, pedal edema - Neurological Exam Neurological exam: Present: CN II-XII intact, oriented X3, no focal deficits. Absent: pronater drift, facial droop, speech deficit - Skin Skin exam: Present: dry Internal Medicine: Result - Labs CBC & Chem 7: 05/02/16 04:25 05/04/16 03:30 Labs: BMP 05/04/16 03:30 Sodium 141 Potassium 3.9 Chloride 104 Carbon Dioxide 27 BUN 56 H Creatinine 2.00 H Glucose 128 H Calcium 8.0 L - ABG Interpretation ABG results: ABG ABG pH 7.42 pH Units (7.32-7.45) 04/28/16 08:13 ABG pCO2 45 mmHg (35-45) 04/28/16 08:13 ABG pO2 164 mmHg (85-104) H 04/28/16 08:13 ABG O2 Saturation 99 % (95-98) H 04/28/16 08:13 PT/INR, D-dimer PT 12.8 Seconds (9.4-12.1) H 05/04/16 03:30 - VTE Documentation of Mechanical Device: Intermittent pneumatic compression device Consult Discharge Plan - Plan Referrals: Tavares Palumbo, CUTLERY GRINDER [Primary Care Provider] - 05/15/16 11:20 am
[2016-05-04] MEDS ORDERED: *HR* OxyCODONE/APAP 5/325 TABLET PO PRN (14:21)
--- NOTE | 2016-05-04 17:03 | Invasive Diagnostic Lab ---
Name: Skip Gonzalez Date of Study: 05/01/2016 Date: 1935 Ht: 180.0 cm /70.9 in Medical Record#: [id number] Age: 81 Wt: 84. kg / 185.19 lb Account/Order#: [id number] Gender: Male BSA: 2.04 Order #: [id number] Fluoro Dose: 880 mGy BMI: 25.93 Procedure Physician: Ene Goldstein MD, [facility] Referring MD: Referring MD: Procedures Performed: LEFT HEART CATH Stent w/ PTCA Single Major Vessel Indications: Non-Stemi Impressions: Triple vessel coronary artery disease. Patient had successful PTCA/Drug-Eluting Stent placement in the Proximal LAD. DEPUTY COMMISSIONER of proximal RCA. Recommendations: Optimal medical therapy of patient's disease. Aggressive risk factor modification. Patient being referred for cardiac rehab. History/Risk Factors: Hypertension Dyslipidemia Family History of CAD Chronic Lung Disease Procedure Access obtained in the right Femoral artery by percutaneous puncture Patient had successful PTCA/Drug-Eluting Stent placement in the proximal LAD. Complications: None Contrast: Isovue 94ml Closure Device: Manual Compression Hemodynamics: Pressures Site Systolic/ A Wave Diastolic/ V Wave End Diastolic/ Mean HR AO 116 62 87 80 AO 115 67 88 76 LV 119 14 23 76 LV 121 9 20 78 AO 121 21 62 77 AO 98 38 61 75 AO 90 39 61 79 AO 119 41 72 73 AO 101 43 65 74 Coronary Dominance: right Lesion Findings/Interventions * Left Main Coronary Artery The LMCA is angiographically free of disease. * Left Anterior Descending There is a 16 mm long, 99% stenosis in the Proximal LAD, with thrombus present. The lesion has a LATOYA flow of 2 and has thrombus present. An intervention was performed on the Proximal LAD with a final stenosis of 0%. There were no lesion complications. The final LATOYA flow was 3. There is a 50% stenosis in the 1st Diagonal. * Circumflex There is a 30% stenosis in the Proximal Circumflex. There is a 60% stenosis in the Mid Circumflex. There is a 99% stenosis in the 1st Marginal- small, diffusely diseased. * Right Coronary Artery There is a 100% stenosis in the Proximal RCA. The lesion has a LATOYA flow of 0. The Right PDA fills via left to right collaterals. Interventional Device(s) Vessel Segment Type Name Diameter (mm) Length (mm) Proximal LAD Drug Eluting Stent Synergy 2.5 16 Proximal LAD Balloon Emerge Monorail 2 15 Updated by Eduarda Diaz RT(R) on 05/01/2016 2:26:34 PM Ene Goldstein MD, FACC electronically signed on 05/04/2016 4:59:27 PM with status of Final
[2016-05-05] MEDS: Albuterol 2.5 MG/3 ML NEBULIZER IH PRN ×2 (04:54→09:39)
[2016-05-05] MEDS: *HR* Metoprolol 5 MG/5 ML VIAL IVP PRN (05:10)
[2016-05-05] MEDS: Aspirin Enteric Coated 81 MG Tablet PO SCH (08:47)
[2016-05-05] MEDS: Furosemide 40 MG TABLET PO SCH (08:47)
[2016-05-05] MEDS: predniSONE 20 MG TABLET PO SCH (08:47)
--- NOTE | 2016-05-05 09:22 | Nephrology Progress Note ---
Date of Encounter: 05/05/16 Time of Encounter: 08:45 - Assessment and Plan (1) Acute kidney injury superimposed on CKD Current Visit: Yes Status: Acute Suspected ZECHARIAH but unknown baseline level of CKD (presuming perhaps stage III) SCr is improving. No need for HD I will order to have the temporary HD catheter removed today Follow a renal protective strategy: dose Rx by GFR and avoid NSAIDs, Bactrim and Contrast. Thank you. (2) BPH (benign prostatic hyperplasia) Current Visit: Yes Status: Acute Suspect acute on chronic s/p iqbal removal. I've asked the RN to check a bedside bladder scan and if significant PVR persists, then to consider replacing the iqbal. Qualifiers: Prostatic enlargement morphology: unspecified morphology Lower urinary tract symptom presence: symptoms present Qualified Code(s): N40.1 - Benign prostatic hyperplasia with lower urinary tract symptoms Subjective Principal diagnosis: ACS Interval history: Pt was s/e on the 2A floor. He did not affirm N/V/D or uremic type symptoms. He reported difficulty with emptying his bladder since the iqbal catheter was removed. His RN was at the bedside. Objective - Vital Signs Vital signs: Vital Signs Temp Pulse Resp BP Pulse Ox 05/05/16 08:04 98.0 F 84 16 156/69 98 05/05/16 06:09 79 167/73 97 05/05/16 05:20 97.9 F 87 18 202/99 98 05/05/16 04:54 18 98 05/05/16 00:48 97.9 F 81 16 161/72 97 05/04/16 22:29 17 97 05/04/16 21:31 97.8 F 83 17 164/75 97 05/04/16 15:32 97.7 F 86 17 149/70 98 05/04/16 11:00 97.5 F L 14 158/69 98 Intake and Output 05/04/16 05/05/16 05/05/16 23:59 07:59 15:59 Intake Total 0 / 0 Output Total 0 / 0 175 / 175 Balance 0 / 0 -175 / -175 Intake: Oral 0 / 0 Output: Urine 0 / 0 175 / 175 Other: Meal Dinner Percent of Meal Consumed 90% Weight 87.2 kg Patient Weight 05/05/16 23:59 Weight 87.2 kg - General Appearance General appearance: Present: well-developed, well-nourished, appears started age EENT: Present: ATNC, PERRL, mucous membranes moist Neck: Present: supple Respiratory: Present: wheezing Cardiology: Present: no edema, regular rate, regular rhythm, normal S1, normal S2 Dialysis Vascular Access: Venous Catheter (Left IJ (yesterday I had writtne RIJ , but it's actually a left IJ temporary HD catheter), which is C/D with the dressing coming loose) Gastrointestinal: Present: normoactive bowel sounds, no guarding Integumentary: Present: no rash, warm and dry Neurologic: Present: no focal deficit, no asterixis, alert and oriented x3 Musculoskeletal: Present: no deformities, no erythema, no cyanosis Psychiatric: Present: mood/affect appropriate, cooperative - Lab 05/02/16 04:25 05/04/16 03:30 Most recent lab results ABG pH 7.42 pH Units (7.32-7.45) 04/28/16 08:13 ABG pCO2 45 mmHg (35-45) 04/28/16 08:13 ABG pO2 164 mmHg (85-104) H 04/28/16 08:13 ABG HCO3 29.2 mEQ/L (21-27) H 04/28/16 08:13 ABG O2 Saturation 99 % (95-98) H 04/28/16 08:13 Calcium 8.0 mg/dL (8.6-10.8) L 05/04/16 03:30 Phosphorus 5.4 mg/dL (2.3-4.7) H 04/30/16 02:35 Magnesium 2.1 mg/dL (1.6-2.6) 04/28/16 08:00 Urine Creatinine 71 mg/dL 04/29/16 17:04 Urine Total Protein 15 mg/dL (1-14) H 04/29/16 17:04 - VTE Documentation of Mechanical Device: Intermittent pneumatic compression device Consult Discharge Plan - Plan Referrals: Tavares Palumbo CNP [Primary Care Provider] - 05/15/16 11:20 am
[2016-05-05] MEDS: Budesonide/Formoterol 160/4.5 MDI IH SCH ×2 (09:39→20:50)
[2016-05-05] MEDS: Tiotropium 18 MCG inhalation IH SCH (09:39)
[2016-05-05 10:35] LABS: Calcium 8.7 mg/dL (8.6-10.8); Potassium 3.7 mEq/L (3.5-4.5)
--- NOTE | 2016-05-05 13:01 | Internal Med Progress Note ---
Date of Encounter: 05/05/16 Time of Encounter: 12:10 - Assessment and plan (1) Acute urinary retention Current Visit: Yes Status: Acute Assessment and plan: Relieved with non-traumatic Wright placement Mild hematuria Observe (2) Atrial fibrillation Current Visit: Yes Status: Acute Assessment and plan: Rate controlled on metoprolol, continue same ELISA-VASC score 5 (age, HTN, CHF, [place]). Continue ASA and Plavix Poor candidate for halfway anticoagulation due to age and risk of falls Qualifiers: Atrial fibrillation type: unspecified Qualified Code(s): I48.91 - Unspecified atrial fibrillation (3) Acute coronary syndrome Current Visit: Yes Status: Acute Assessment and plan: Patient reported several days worsening shortness of breath and exertional dyspnea prior to presentation to the hospital. Found to have troponins > 50.0 at admission, no ST elevations noted on EKG. S/P LHC with PCI on 05/02/16. Drug-eluting stent to proximal left anterior descending coronary artery Continue ASA, Plavix, Lopressor D/C Cardizem No ARB or ACEI due to ZECHARIAH on CKD Continue same medications (4) Acute decompensated heart failure Current Visit: Yes Status: Acute Assessment and plan: Significantly improved CHrEF ECHO prior to LHC with LVEF 35%, Moderate LVDD On lasix , continue other meds as above (5) Acute kidney injury superimposed on CKD Current Visit: Yes Status: Acute Assessment and plan: Improving Continue current meds, avoid nephrotoxins D/C CVC per Nephrology recommendation Patient with acute urinary retention overnight Mild hematuria after urethral catheter placement Observe overnight and rpt chem a.m Anticipate discharge with Urinary Wright a.m if stable (6) Acute respiratory failure Current Visit: Yes Status: Acute Assessment and plan: Improving, continue O2 supplement prn Qualifiers: Respiratory failure complication: hypoxia Qualified Code(s): J96.01 - Acute respiratory failure with hypoxia (7) Hematuria Current Visit: Yes Status: Resolved Assessment and plan: Resolved (8) Transaminitis Current Visit: Yes Status: Acute Assessment and plan: Improving, possibly from shock liver (9) CKD (chronic kidney disease) stage 3, GFR 30-59 ml/min Current Visit: Yes Status: Chronic Assessment and plan: As in ZECHARIAH (10) Hypertension Current Visit: Yes Status: Chronic Assessment and plan: Controlled Qualifiers: Hypertension type: essential hypertension Qualified Code(s): I10 - Essential (primary) hypertension (11) BPH (benign prostatic hyperplasia) Current Visit: Yes Status: Chronic Assessment and plan: Resume Tamsulosin Follow up with on discharge Qualifiers: Prostatic enlargement morphology: unspecified morphology Lower urinary tract symptom presence: symptoms present Qualified Code(s): N40.1 - Benign prostatic hyperplasia with lower urinary tract symptoms - Subjective Interval history: Patient being managed for NSTEMI with Acute systolic CHF (on lasix drip), s/p LHC with PCI, Cardiogenic shock (resolved) with shock liver (improving), ZECHARIAH on CKD (that required one HD session), Afib with RVR on cardizem drip, HTN and acute respiratory failure Renal function continues to improve, patient has had adequate diuresis with ~40 pounds weight loss, Cumulative I/O since admission -5000+ Patient seen laying flat in bed He reports urinary frequency since urinary catheter was discontinued yesterday Bladder scan revealed >400cc of urine Atraumatic reinsertion of Wright with >400 of urine drained Patient has a hx of BPH on tamsulosin r - Constitutional Vitals: Temp Pulse Resp BP Pulse Ox 97.5 F L 79 17 100/64 98 05/05/16 11:52 05/05/16 11:52 05/05/16 11:52 05/05/16 11:52 05/05/16 11:52 General appearance: Present: cooperative, A&O X 3, pleasant, no acute distress, answers questions appropriately - Head Head exam: Present: atraumatic, normocephalic - Eye Eye exam: Present: PERRL, conjuntiva pink, sclera anicteric - ENT ENT exam: Present: mucous membranes moist - Neck Additional comments: Left neck wound dressing clean and dry - Respiratory Respiratory exam: Present: CTAB. Absent: accessory muscle use, rales, rhonchi, wheezes - Cardiovascular Cardiovascular exam: Present: irregular rhythm, +S1, +S2. Absent: diastolic murmur, gallop, rubs, systolic murmur - GI/Abdominal GI/Abdominal exam: Present: normal bowel sounds, soft, no peritoneal signs. Absent: distended, tenderness - Extremities Exam Extremities exam: Present: warm, radial pulses palpable and symetrical. Absent : calf tenderness, cyanotic, pedal edema - Neurological Exam Neurological exam: Present: CN II-XII intact, oriented X3, no focal deficits. Absent: pronater drift, facial droop, speech deficit - Skin Skin exam: Present: dry, intact Internal Medicine: Result - Labs CBC & Chem 7: 05/02/16 04:25 05/05/16 09:26 Labs: BMP 05/05/16 09:26 Sodium 141 Potassium 3.7 Chloride 102 Carbon Dioxide 28 BUN 55 H Creatinine 2.16 H Glucose 186 H Calcium 8.7 - ABG Interpretation ABG results: ABG ABG pH 7.42 pH Units (7.32-7.45) 04/28/16 08:13 ABG pCO2 45 mmHg (35-45) 04/28/16 08:13 ABG pO2 164 mmHg (85-104) H 04/28/16 08:13 ABG O2 Saturation 99 % (95-98) H 04/28/16 08:13 PT/INR, D-dimer PT 12.8 Seconds (9.4-12.1) H 05/04/16 03:30 - VTE Documentation of Mechanical Device: Intermittent pneumatic compression device Consult Discharge Plan - Plan Referrals: Tavares Palumbo, [employer] [Primary Care Provider] - 05/15/16 11:20 am
[2016-05-05] MEDS: *HR* LORazepam 2 MG/ML VIAL IVP PRN (21:28)
[2016-05-06] MEDS ORDERED: Melatonin 3 MG TABLET PO ONE (03:59)
[2016-05-06 07:35] LABS: Calcium 8.3 mg/dL (8.6-10.8)
[2016-05-06] MEDS: Albuterol 2.5 MG/3 ML NEBULIZER IH PRN (07:43)
[2016-05-06] MEDS: Budesonide/Formoterol 160/4.5 MDI IH SCH (07:43)
[2016-05-06] MEDS: Tiotropium 18 MCG inhalation IH SCH (07:43)
[2016-05-06] MEDS: Aspirin Enteric Coated 81 MG Tablet PO SCH (08:26)
[2016-05-06] MEDS: Furosemide 40 MG TABLET PO SCH (08:27)
[2016-05-06] MEDS: predniSONE 20 MG TABLET PO SCH (08:27)
--- NOTE | 2016-05-06 09:33 | Nephrology Progress Note ---
Date of Encounter: 05/06/16 Time of Encounter: 09:15 - Assessment and Plan (1) Acute kidney injury superimposed on CKD Current Visit: Yes Status: Acute Resolving ZECHARIAH on CKD (though the baseline level of CKD is unknown, I suspect he had stage III) Recommend follow up with nephrology in about 3-6 weeks with a BMP to be checked in about 1 week after discharge. I'll ask my team on Saturday (tomorrow) to help arrange the nephrology follow up appt. The temporary HD catheter was removed, and it was only needed once, after a LHC (when Dr. Haney was seeing the pt). Urinary retention: continue flomax. Agree with outpt voiding trial and to see Urology as an outpt. Continue to follow a renal protective strategy: dose Rx by GFR and avoid NSAIDs , Bactrim and Contrast. Thank you. (2) BPH (benign prostatic hyperplasia) Current Visit: Yes Status: Chronic See above Qualifiers: Prostatic enlargement morphology: unspecified morphology Lower urinary tract symptom presence: symptoms present Qualified Code(s): N40.1 - Benign prostatic hyperplasia with lower urinary tract symptoms Subjective Principal diagnosis: ACS Interval history: Pt was s/e this AM. He did not report any N/V/D. He required replacement of the iqbal catheter yesterday d/t urinary retention. He said that he lives near [place] and voiced hoping to follow up with [facility] in [place]. I spoke with his hospitalist today as well. Objective - Vital Signs Vital signs: Vital Signs Temp Pulse Resp BP Pulse Ox 05/06/16 07:43 18 97 05/06/16 07:35 97.6 F 75 16 137/74 98 05/06/16 03:48 97.5 F L 72 17 109/65 96 05/06/16 00:00 97.5 F L 82 18 133/61 95 05/05/16 20:50 17 98 05/05/16 19:34 97.3 F L 87 18 131/65 96 05/05/16 16:26 98.0 F 90 17 147/71 96 05/05/16 11:52 97.5 F L 79 17 100/64 98 05/05/16 09:39 18 97 Intake and Output 05/05/16 05/06/16 05/06/16 23:59 07:59 15:59 Intake Total 340 / 340 240 / 240 Output Total 800 / 800 550 / 550 Balance -460 / -460 -550 / -550 240 / 240 Intake: Oral 340 / 340 240 / 240 Output: Catheter 800 / 800 550 / 550 Other: Meal Dinner Breakfast Percent of Meal Consumed 85% 75% Weight 87 kg Patient Weight 05/06/16 23:59 Weight 87 kg - General Appearance General appearance: Present: well-developed, well-nourished, appears started age EENT: Present: ATNC, PERRL, mucous membranes moist Additional Comments: Left neck dressing was C/D/I. Neck: Present: supple Respiratory: Present: course breath sounds (in the bases) Cardiology: Present: holosystolic murmur, regular rate, regular rhythm, normal S1, normal S2 Gastrointestinal: Present: normoactive bowel sounds, no tenderness, no guarding Integumentary: Present: no rash, warm and dry Neurologic: Present: no focal deficit Musculoskeletal: Present: no deformities, no erythema, no cyanosis Psychiatric: Present: mood/affect appropriate, cooperative - Lab 05/02/16 04:25 05/06/16 06:59 Most recent lab results ABG pH 7.42 pH Units (7.32-7.45) 04/28/16 08:13 ABG pCO2 45 mmHg (35-45) 04/28/16 08:13 ABG pO2 164 mmHg (85-104) H 04/28/16 08:13 ABG HCO3 29.2 mEQ/L (21-27) H 04/28/16 08:13 ABG O2 Saturation 99 % (95-98) H 04/28/16 08:13 Calcium 8.3 mg/dL (8.6-10.8) L 05/06/16 06:59 Phosphorus 5.4 mg/dL (2.3-4.7) H 04/30/16 02:35 Magnesium 2.1 mg/dL (1.6-2.6) 04/28/16 08:00 Urine Creatinine 71 mg/dL 04/29/16 17:04 Urine Total Protein 15 mg/dL (1-14) H 04/29/16 17:04 - VTE Documentation of Mechanical Device: Intermittent pneumatic compression device Consult Discharge Plan - Plan Referrals: Tavares Palumbo SOLUTION CONSULTANT [Primary Care Provider] - 05/15/16 11:20 am
--- NOTE | 2016-05-06 11:35 | Discharge Summary ---
Date of Encounter: 05/06/16 Time of Encounter: 11:35 - Discharge Diagnosis (1) Acute urinary retention Priority: Primary Status: Acute (2) Atrial fibrillation Priority: Secondary Status: Chronic Qualifiers: Atrial fibrillation type: unspecified Qualified Code(s): I48.91 - Unspecified atrial fibrillation (3) Acute coronary syndrome Priority: Primary Status: Acute (4) Acute decompensated heart failure Priority: Primary Status: Acute (5) Acute kidney injury superimposed on CKD Priority: Primary Status: Acute (6) Acute respiratory failure Priority: Primary Status: Resolved (7) Hematuria Priority: Primary Status: Resolved (8) Transaminitis Priority: Primary Status: Acute (9) CKD (chronic kidney disease) stage 3, GFR 30-59 ml/min Priority: Secondary Status: Chronic (10) Hypertension Priority: Secondary Status: Chronic Qualifiers: Hypertension type: essential hypertension Qualified Code(s): I10 - Essential (primary) hypertension (11) BPH (benign prostatic hyperplasia) Priority: Secondary Status: Chronic Qualifiers: Prostatic enlargement morphology: unspecified morphology Lower urinary tract symptom presence: symptoms present Qualified Code(s): N40.1 - Benign prostatic hyperplasia with lower urinary tract symptoms - Discharge Medications Prescriptions: Calcium Carbonate [Tums] 1,000 mg PO Q4HR PRN #30 tab.chew PRN Reason: Heartburn Aspirin Enteric Coated [Aspirin EC] 81 mg PO DAILY #30 tablet.dr Atorvastatin [Lipitor] 80 mg PO HS #30 tablet Bisacodyl [Dulcolax] 5 mg PO DAILY PRN #30 tablet PRN Reason: Constipation Clopidogrel [Plavix] 75 mg PO DAILY #30 tablet Docusate [Colace] 100 mg PO BID #60 capsule Metoprolol [Lopressor] 25 mg PO BID #60 tablet Nicotine Patch [Nicoderm] 21 mg TD DAILY #30 patch.td24 Tiotropium [Spiriva] 18 mcg IH DAILYR #1 inh Home Medications: Cholecalciferol (Vitamin D3) [Vitamin D3] 50,000 unit PO QWEEK 04/27/16 [History ] Diltiazem HCl [Diltiazem ER] 180 mg PO BID 04/27/16 [History] Fluticasone/Salmeterol [Advair 250-50 Diskus] 1 puff IH BID 04/27/16 [History] Furosemide [Lasix] 40 mg PO DAILY 04/27/16 [History] Ipratropium/Albuterol Neb [Duoneb] 3 ml IH Q6HR 04/27/16 [History] Tamsulosin HCl [Flomax] 0.4 mg PO DAILY 04/27/16 [History] Vitamin B Complex [B Complex] 1 tab PO DAILY 04/27/16 [History] Zolpidem [Ambien] 5 mg PO HS 04/28/16 [History] Aspirin Enteric Coated [Aspirin EC] 81 mg PO DAILY #30 tablet.dr 05/06/16 [Rx] Atorvastatin [Lipitor] 80 mg PO HS #30 tablet 05/06/16 [Rx] Bisacodyl [Dulcolax] 5 mg PO DAILY PRN #30 tablet 05/06/16 [Rx] Calcium Carbonate [Tums] 1,000 mg PO Q4HR PRN #30 tab.chew 05/06/16 [Rx] Clopidogrel [Plavix] 75 mg PO DAILY #30 tablet 05/06/16 [Rx] Docusate [Colace] 100 mg PO BID #60 capsule 05/06/16 [Rx] Metoprolol [Lopressor] 25 mg PO BID #60 tablet 05/06/16 [Rx] Nicotine Patch [Nicoderm] 21 mg TD DAILY #30 patch.td24 05/06/16 [Rx] Tiotropium [Spiriva] 18 mcg IH DAILYR #1 inh 05/06/16 [Rx] Allergies/Adverse Reactions: Allergies Beta-Blockers (Beta-Adrenergic Bloc Adverse Reaction (Verified 04/27/16 23:50) See Comments SYNCOPAL EPISODE codeine Adverse Reaction (Verified 04/27/16 23:50) Nausea Date of admission: 04/28/16 05:19 Primary care physician: Tavares Palumbo CNP Consults: 04/28/16 06:32 Consult to Cardiology [CONS] Routine Comment: Consulting Provider: [facility] Reason for Consult: NSTEMI Call Completed: No Consult to Critical Care [CONS] Routine Consulting Provider: [facility]m [facility] Reason for Consult: respiratory failure, NSTEMI Call Completed: No 04/28/16 07:05 Consult to Cardiac Rehabilitation-Phase1 [CONS] Routine Comment: Reason for Consult: AMI Call Completed: Yes Consult to Nurse Navigator [CONS] Routine Comment: Consult to Nurse Navigator [CONS] Routine Comment: 04/29/16 10:35 Consult to Nephrology [CONS] Routine Consulting Provider: [facility]/FERNANDO/WENDI/GERMAN Reason for Consult: NSTEMI, SCR 3.02, concern for need for dialysis, especially with potential cath Call Completed: Yes 05/01/16 09:30 Consult to Dialysis [CONS] ONCE 05/01/16 13:07 Consult to Cardiac Rehabilitation-Phase1 [CONS] Routine Comment: Reason for Consult: CAD S/P PCI Call Completed: Yes Discharging clinician: Be Brooks Anticipated date of discharge: 05/06/16 - Patient Status Disposition: Home, Self-Care Condition: Fair Functional capacity at discharge: independent ambulation Overall status at discharge: patient is progressing back to baseline - Discharge Instructions Follow Up With: Tavares Palumbo CNP [Primary Care Provider] - 05/15/16 11:20 am - Diet and Activity Activity: resume usual activities as tolerated Diet: low fat, low cholesterol, low salt diet Interval History: See below Hospital course: Mr. Gonzalez is a 81 year old male He was admitted and managed for NSTEMI with Acute systolic CHF (on lasix drip) , s/p LHC with PCI, Cardiogenic shock (resolved) with shock liver (improving), ZECHARIAH on CKD (that required one HD session), Afib with RVR on cardizem drip, HTN and acute respiratory failure Patient is seen sitting in chair out of bed, denies new complains, reports feeling better Renal function continues to improve, patient has had adequate diuresis with ~40 pounds weight loss, Cumulative I/O since admission -6000+ He is clinically stable for discharge Physical Exam as documented A/P 1. Afib-Rate controlled on metoprolol. ELISA-VASC score 5 (age, HTN, CHF, CO) .Poor candidate for mcc anticoagulation due to age and risk of falls. Will discharge home on metoprolol, Plavix, ASA. 2. CAD with ACS: Patient reported several days worsening shortness of breath and exertional dyspnea prior to presentation to the hospital. Found to have troponins > 50.0 at admission, no ST elevations noted on EKG. S/P LHC with PCI on 05/02/16. Drug-eluting stent to proximal left anterior descending coronary artery. Discharge home on ASA, Plavix, Lipitor, Lopressor, No ARB or ACEI due to ZECHARIAH on CKD. Patient educated extensively on medication compliance and lifestyle modifation. he states he quit smoking several years ago 3. Acute on Chronic CHF: Secondary to A fib with RVR and NSTEMI. ECHO prior to LHC with LVEF 35%, Moderate LVDD. ON Lasix po with adequate diuresis. Discharged on same. Follow up with Cardiology 4. ZECHARIAH on CKD: He received one session of hemodialysis. Renal function has improved. Renal USS with no hydronephrosis, however, patient with BPH and acute urinary retention. Scheduled repeat Chem within one week Follow up with nephrology 5. Acute Urinary retention with BPH : He will be discharged with a Wright catheter, to follow up in Urology clinic for voiding trial. Continue Tamsulosin. 6.cardiogenic shock with Shock liver/transamnitis: Resolved with treatment. LFT has improved significantly. 7.HTN: Controlled. Continue cardiac meds Patient reports he has received the Flu shot he is educated about plan of discharge and follow up appointments, verbalized understanding. He quit smoking several years ago He has no advanced directives, educated to make - Time Spent with Patient Total time spent providing and/or coordinating discharge services: Greater than 30 minutes (~50 minutes spent on face to face, patient eduction, medication reconciliation, prescription, documentation, making /arranging for appointments) - Constitutional Vitals: Temp Pulse Resp BP Pulse Ox 97.6 F 75 18 137/74 97 05/06/16 07:35 05/06/16 07:35 05/06/16 07:43 05/06/16 07:35 05/06/16 07:43 General appearance: Present: cooperative, A&O X 3, pleasant, no acute distress, answers questions appropriately - Head Head exam: Present: atraumatic, normocephalic - Eye Eye exam: Present: PERRL, conjuntiva pink, sclera anicteric Pupils: Present: PERRL - ENT ENT exam: Present: mucous membranes moist - Neck Additional comments: L neck wound dressing clean and dry - Respiratory Respiratory exam: Present: decreased breath sounds (At both lung bases, coarse beath sounds that clear with coughing). Absent: accessory muscle use, rales, rhonchi, wheezes - Cardiovascular Cardiovascular exam: Present: RRR, +S1, +S2. Absent: diastolic murmur, gallop, rubs, systolic murmur - GI/Abdominal GI/Abdominal exam: Present: normal bowel sounds, soft, no peritoneal signs. Absent: distended, tenderness - Additional comments: Wright with clear urine - Extremities Exam Extremities exam: Present: warm, radial pulses palpable and symetrical. Absent : calf tenderness, cyanotic, pedal edema - Neurological Exam Neurological exam: Present: CN II-XII intact, oriented X3, no focal deficits. Absent: pronater drift, facial droop, speech deficit - Skin Skin exam: Present: dry, intact - VTE Documentation of Mechanical Device: Intermittent pneumatic compression device
[2016-05-06 12:08] VITALS: BP 109/53
== END 2016-05-06 16:47 | disposition home or self-care (01) | DRG 246 ==
LOC: SUATTDRO 05:19 → ICNU 05:19 → 2ANU 05-03 17:50
PROVIDERS: ADMIT Internal Medicine; ATTEND Internal Medicine

== ENCOUNTER 2017-05-20 19:40 | Inpatient (IN) ==
[2017-05-20] MEDS ORDERED: Acetaminophen 325 MG TABLET PO PRN (22:42)
[2017-05-20] MEDS ORDERED: Albuterol 2.5 MG/3 ML NEBULIZER IH PRN ×2 (22:42→23:15)
[2017-05-20] MEDS ORDERED: Naloxone 0.4 MG/ML INJ IVP PRN (22:42)
[2017-05-20] MEDS ORDERED: Azithromycin 500 MG in D5% in Water 250 ML IVPB SCH (23:00)
--- NOTE | 2017-05-20 23:02 | Internal Med History&Physical ---
Date of Encounter: 05/20/17 Time of Encounter: 22:20 Assessment and Plan (1) Acute and chronic respiratory failure with hypoxia Current visit: No Status: Acute 1. Patient responded to BiPap at [facility] and en route to [place] [facility]. 2. I removed BiPap and placed him on 4L O2 NC now. We will continue to use BiPap PRN. 3. Will treat with aggressive steroids, scheduled and PRN aerosols, and oxygen as needed. 4. Likely due to pneumonia precipitating his COPD flare. 5. Do not suspect acute CHF as etiology. 6. Will order influenza panel/test. (2) Pneumonia Current visit: Yes Status: Suspected 1. Blood cultures drawn at [facility]. 2. Continue IV antibiotics and respiratory support as noted above. 3. Will try to obtain sputum sample for culture. Qualifiers: Pneumonia type: due to unspecified organism Laterality: bilateral Lung location: lower lobe of lung Qualified Code(s): J18.1 - Lobar pneumonia, unspecified organism (3) Ischemic cardiomyopathy Current visit: Yes Status: Acute 1. Will trend troponins and EKG's. 2. Will order ECHO to assess LV function. 3. Patient looks dry clinically and does not appear fluid overloaded. 4. Will order appropriate home meds once med list is obtained and verified. 5. Will hold diuretics for now and resume them when appropriate. (4) DVT prophylaxis Current visit: Yes Status: Acute 1. Heparin SQ. Internal Medicine - H&P: HPI Chief complaint: SOB; cough Admitted From: Hospital to Hospital Transfer Plans for Post Hospital Care: Home History of present illness: Mr. Gonzalez is a 82 year old male who presents in transfer from [facility] ER. He presented there with acute shortness of breath and respiratory failure requiring BiPAP treatment, steroids, aerosols, and empiric treatment for presumptive pneumonia. I received a call from Dr. Jackson from [facility], and I discussed the case with her. I agreed with her transfer request and accepted the patient in transfer to our hospital. Upon my assessment patient on arrival, he was on BiPAP and breathing better. However, he was struggling with the BiPap mask and requested its removal. I removed the mask and placed him on nasal cannula. He feels a little better now than he was upon presentation to the ER. He states he has been coughing, wheezing, and short of breath for the last week. He was placed on antibiotics by his PCP for possible pneumonia. Because of worsening and persistent shortness of breath and worsening symptoms, he came to the ER for evaluation. He has had productive cough, chest congestion, shortness of breath, fevers, and some body aches. He has had some diarrhea but no vomiting or nausea. He denies any chest pain. He has had some increasing edema last few weeks. He has had ill contacts at home but he denies any contact with family or friends who might have had influenza. Patient does suffer from COPD and was a former smoker, but he quit in 1994. He has never been hospitalized for COPD exacerbation. Of note, patient had an LA last year and has chronic CHF due to ischemic cardiomyopathy. His last known ejection fraction was 50% (up from 35%) last year. Past Med Surg Social Fam HX - Past Medical History Attestation: Yes The following information was validated with the patient. Source: patient, old records reviewed, other (phone conversation with [facility]) Medical history: arthritis, cardiomyopathy (ischemic), coronary artery disease, peripheral artery disease Psychiatric history: no psych history - Past Surgical History Surgical History: angioplasty/stent, orthopedic, other, other (AAA repair) - Social History Smoking Status: Former smoker (quit 1994) Smokeless Tobacco Status: No Alcohol use: none Drug use: none Current living situation: Home, With Family Activity Level: Independent ambulation Recent Out of Country Travel Within the Last 8 Weeks: No - Family History Mother Living Status: Hx Family Cardiac Disorders: Yes Father History Unknown: Yes Living Status: Internal Medicine - H&P: Meds Cholecalciferol (Vitamin D3) [Vitamin D3] 50,000 unit PO QWEEK 04/27/16 [History ] Diltiazem HCl [Diltiazem ER] 180 mg PO BID 04/27/16 [History] Fluticasone/Salmeterol [Advair 250-50 Diskus] 1 puff IH BID 04/27/16 [History] Furosemide [Lasix] 40 mg PO HS 04/27/16 [History] Ipratropium/Albuterol Neb [Duoneb] 3 ml IH Q6HR 04/27/16 [History] Tamsulosin HCl [Flomax] 0.4 mg PO DAILY 04/27/16 [History] Zolpidem [Ambien] 5 mg PO HS 04/28/16 [History] Atorvastatin [Lipitor] 80 mg PO HS #30 tablet 05/06/16 [Rx] Clopidogrel [Plavix] 75 mg PO DAILY #30 tablet 05/06/16 [Rx] Docusate [Colace] 100 mg PO BID #60 capsule 05/06/16 [Rx] Tiotropium [Spiriva] 18 mcg IH DAILYR #1 inh 05/06/16 [Rx] Amoxicillin/Clavulanate [Augmentin] 875 mg PO BIDWM 05/20/17 [History] Furosemide [Lasix] 60 mg PO DAILY 05/20/17 [History] Metoprolol [Lopressor] 50 mg PO BID 05/20/17 [History] Torsemide 100 mg PO DAILY 05/20/17 [History] metOLazone [Metolazone] 5 mg PO DAILY 05/20/17 [History] 3 Allergy/AdvReac Type Severity Reaction Status Date / Time Beta-Blockers AdvReac See Verified 05/20/17 21:43 (Beta-Adrenergic Bloc Comments codeine AdvReac Nausea Verified 05/20/17 21:43 - Constitutional Constitutional: fever(s), malaise, weakness, no chills, no night sweats - EENT Eyes: no blurry vision, no change in vision Ears: no ear pain, no tinnitus Nose, mouth and throat: nasal congestion, no nasal discharge, no sinus pressure , no sore throat - Cardiovascular Cardiovascular ROS IM: dyspnea, dyspnea on exertion, no chest pain, no orthopnea , no palpitations, no paroxysmal nocturnal dyspnea, no syncope - Respiratory Respiratory: cough, dyspnea, dyspnea on exertion, wheezing, chest congestion, excessive phlegm production, change in phlegm color, no hemoptysis - Gastrointestinal Gastrointestinal: no abdominal pain, no diarrhea, no hematemesis, no hematochezia, no melena, no nausea, no vomiting - Genitourinary Genitourinary ROS male: no dysuria, no flank pain, no hematuria - Musculoskeletal Musculoskeletal ROS IM: muscle weakness, no arthralgias, no back pain, no myalgias - Integumentary Integumentary IM: no rash, no jaundice - Neurological Neurological ROS: no dizziness, no focal weakness, no frequent falls, no headache(s) - Psychiatric Psychiatric: no anxiety, no depression - Endocrine Endocrine IM: cold intolerance, no heat intolerance, no polydipsia, no polyuria - Hematologic/Lymphatic Hematologic/Lymphatic: no easy bruising, no lymphadenopathy - Allergic/Immunologic Allergic/Immunologic: wheezing, no GI upset with certain foods - Constitutional Vitals: Temp Pulse Resp BP Pulse Ox 98.3 F 77 20 128/63 94 05/20/17 21:56 05/20/17 21:56 05/20/17 21:56 05/20/17 21:56 05/20/17 21:56 General appearance: Present: cooperative, mild distress, A&O X 3, pleasant, answers questions appropriately - Head Head exam: Present: normal inspection - Eye Eye exam: Present: EOMI, normal appearance, PERRL. Absent: scleral icterus Pupils: Present: normal accommodation - ENT ENT exam: Present: mucous membranes dry, normal exam, normal oropharynx Additional comments: nasal congestion, no PND - Neck Neck exam general surgery: Present: full ROM, supple. Absent: lymphadenopathy, tenderness, nuchal rigidity, thyromegaly - Expanded Neck Exam Neck exam: Absent: carotid bruit - Respiratory Respiratory exam: Present: prolonged expiratory phase, rales (mostly right base) , respiratory distress (mild to moderate), rhonchi (diffuse), wheezes ( throughout). Absent: chest wall tenderness, CTAB - Cardiovascular Cardiovascular exam: Present: distant heart sounds, RRR, +S1, +S2, systolic murmur (subtle grade 1). Absent: diastolic murmur, JVD - GI/Abdominal GI/Abdominal exam: Present: normal bowel sounds, soft. Absent: guarding, hepatomegaly, mass, rebound, splenomegaly, tenderness - Extremities Exam Extremities exam: Present: full ROM, normal capillary refill, pedal edema ( trace to 1+), warm, radial pulses palpable and symmetrical. Absent: calf tenderness, joint swelling, tenderness - Back Exam Back exam: Present: normal inspection. Absent: CVA tenderness (L), CVA tenderness (R) - Neurological Exam Neurological exam: Present: alert, CN II-XII intact, oriented X3, no focal deficits - Psychiatric Psychiatric exam: Present: normal affect, normal mood - Skin Skin exam: Present: dry, warm. Absent: rash Internal Med - H&P Results - Labs Labs: I reviewed his labs from [facility] and include the following: WBC 16.0 Hemoglobin 13.9 Hematocrit 42.3 Platelet count 371 Sodium 135 Potassium 3.7 Chloride 90 Carbon dioxide 37 BUN 34 Creatinine 2.14 Glucose 123 Analysis unremarkable other than cloudy urine - ABG Interpretation Interpretation: ABG interpreted by me Interpretation: respiratory acidosis (compensated) Additional comments: 7.36/62/80/35/95% on BiPap 60% FIO2 - EKG Data -: EKG Interpreted by Myself EKG shows normal: sinus rhythm - EKG Data Prior EKG available for review: no EKG comments: 05/20/17 23:12 Sinus rhythm with PVC's and borderline 1st degree block - Diagnostic Studies Chest x-ray Status: image reviewed by me (small left pleural effusion and bibasilar opacities -- I favor pneumonia vs atelectasis)
[2017-05-21] MEDS ORDERED: methylPREDNISolone 125 MG/2 ML VIAL IVP SCH
[2017-05-21] MEDS: Ipratropium/Albuterol Neb 3 ML IH SCH ×6 (00:16→20:16)
[2017-05-21] MEDS: methylPREDNISolone 125 MG/2 ML VIAL IVP SCH ×6 (02:58→18:24)
[2017-05-21] MEDS: *HR* Heparin 5,000 UNIT/ML VIAL SQ SCH ×3 (02:58→16:28)
[2017-05-21 04:56] LABS: Basophils % 0.1 %; Hematocrit 38.9 % (37.5-50.1); Hemoglobin 12.9 g/dL (12.9-16.9); Immature Granulocytes % 0.5 % (0-4); Lymphocytes # 0.3 K/mcL (0.6-4.6); Lymphocytes % 2.7 %; Mean Corpuscular HGB Conc 33.2 g/dL (31.6-35.5); Mean Corpuscular Hemoglobin 30.6 pg (28.0-33.3); Mean Corpuscular Volume 92.4 fL (83.0-100.0); Mean Platelet Volume 10.4 fL (9.4-12.4); Monocytes # 0.1 K/mcL (0.0-1.3); Monocytes % 0.5 %; Platelet Count 308 K/mcL (140-400); Red Blood Count 4.21 M/mcL (4.19-5.50); Segmented Neutrophils % 96.2 %
[2017-05-21 05:01] LABS: INR 1.2; Prothrombin Time 13.4 Seconds (9.4-12.1)
[2017-05-21 05:04] LABS: Activated Partial Thrombo Time 26.9 Seconds (26.0-36.0)
[2017-05-21 05:16] LABS: Neutrophils # 11.5 K/mcL (1.6-8.9)
[2017-05-21 05:26] LABS: Albumin 3.3 g/dL (3.5-5.7); Bilirubin,Total 0.3 mg/dL (0.3-1.0); Calcium 9.6 mg/dL (8.6-10.3); Chol/HDL Ratio 3.1 (0-4.9); Globulin 3.2 g/dL (2.4-3.5); Potassium 4.2 mEq/L (3.5-5.1); Total Protein 6.5 g/dL (6.4-8.9)
[2017-05-21 05:38] LABS: Influenza A PCR Negative (Negative); Influenza B PCR Negative (Negative); Resp. Syncytial Virus PCR Negative (Negative)
[2017-05-21 05:59] LABS: Large Platelets Present (Not Present); Platelet Estimate Normal (Normal)
[2017-05-21] MEDS: cefTRIAXone 1,000 MG in Water for inj. (sterile) 20 ML 10 ML IVP SCH (07:48)
[2017-05-21] MEDS: Furosemide 40 MG/4 ML VIAL IVP SCH ×2 (09:41→22:03)
--- NOTE | 2017-05-21 09:56 | Internal Med Progress Note ---
<Sam Yanes - Last Filed: 05/21/17 09:30> Date of Encounter: 05/21/17 Time of Encounter: 09:30 - Assessment and plan (1) Acute and chronic respiratory failure with hypoxia Current Visit: Yes Status: Acute Assessment and plan: Secondary to pneumonia and COPD exacerbation. Currently requiring 2 L oxygen. Off BiPAP. Plan to wean down on O2. Continue azithromycin and ceftriaxone. Awaiting sputum culture and blood culture. Continue scheduled DuoNeb's, and Solu-Medrol. (2) Pneumonia Current Visit: Yes Status: Suspected Assessment and plan: Plan as above. Qualifiers: Pneumonia type: due to unspecified organism Laterality: bilateral Lung location: lower lobe of lung Qualified Code(s): J18.1 - Lobar pneumonia, unspecified organism (3) COPD exacerbation Current Visit: Yes Status: Acute Assessment and plan: 2nd PNA Reports worsening shortness of breath, sputum production, cough. Symptoms refractory to home nebulizer and albuterol. Patient is treated with Spiriva outpatient. Continue steroids, antibiotics, DuoNeb's. (4) Diarrhea Current Visit: Yes Status: Acute Assessment and plan: Patient reports after being treated with Augmentin outpatient he started developing diarrhea. 3 days ago he had 11 bouts of diarrhea and one day. Reports since admission he had 4 bouts of diarrhea. We will obtain a GI stool panel. Qualifiers: Diarrhea type: unspecified type Qualified Code(s): R19.7 - Diarrhea, unspecified (5) Urinary retention Current Visit: Yes Status: Acute Assessment and plan: Patient reports history of BPH. In the past 2 days he has had urinary retention Urinalysis negative for infection. At [facility] had a Wright catheter placed. Since admission he has had a urinary output of 1200. Plan: Remove Wright and assess urinary retention via bladder scan. (6) Ischemic cardiomyopathy Current Visit: Yes Status: Acute Assessment and plan: Patient has history of ischemic cardiomyopathy. He reports increasing fluid in his lower extremity in the past 2 weeks. Previous echocardiogram showed EF of 50% in 08/08/2016. He does not show any signs of fluid overload. Troponins within normal limits. Repeat echocardiogram ordered pending. (7) DVT prophylaxis Current Visit: Yes Status: Acute Assessment and plan: Heparin subcutaneous. - Subjective Interval history: Patient reports that 3 weeks ago he started having shortness of breath and green productive sputum. His PCV placed him on a 5 day antibiotic regimen however his symptoms did not improve. Thereafter his PCP placed him on Augmentin which helped improve his breathing but he developed diarrhea. States for the past 3 days he has had creamy diarrhea up to 11 times a day. He denies any fevers, abdominal pain, hematochezia, melena, nausea, vomiting. Furthermore he states his breathing became worse and continues to have yellow sputum and cough. Due to this patient presented to [facility]. Patient ABG showed hypercapnia and he was placed on BiPAP and also started on Rocephin and Zithromax due to elevated white blood cell count and chest x-ray showing atelectasis. This morning patient continues to be shortness of breath and require oxygen supplementation. He is having a productive cough. He denies headache, chest pain, nausea, vomiting. He continues to have diarrhea. He reports the past 2 days he has also had urinary retention and a Wright was placed at [facility]. He reports a history of BPH. - Constitutional Vitals: Temp Pulse Resp BP Pulse Ox 98.3 F 88 17 174/68 94 05/21/17 06:44 05/21/17 07:45 05/21/17 07:54 05/21/17 06:44 05/21/17 07:54 General appearance: Present: cooperative, mild distress, A&O X 3, pleasant, answers questions appropriately - Other Additional findings: General: Pleasant without distress HEENT: Head atraumatic, normocephalic, EOMI, PERRL, neck nontender to palpation , absent lymphadenopathy, Moist Mucous Membranes, Heart: Regular rate and rhythm with no murmur Lungs: Clear to auscultation bilaterally Abdomen: Soft nontender, nondistended positive bowel sounds Skin: warm and dry Extremities: Absent pedal edema, Neuro: Alert oriented 3 Vascular: Pedal and radial pulses 2 out of 4 Internal Medicine: Result - Labs CBC & Chem 7: 05/21/17 04:31 05/21/17 04:31 Labs: Short CBC 05/21/17 Range/Units 04:31 WBC 12.0 H (4.3-11.1) K/mcL Hgb 12.9 (12.9-16.9) g/dL Hct 38.9 (37.5-50.1) % Plt Count 308 (140-400) K/mcL Neutrophils # 11.5 H (1.6-8.9) K/mcL BMP 05/21/17 04:31 Sodium 136 Potassium 4.2 Chloride 94 L Carbon Dioxide 32 H BUN 38 H Creatinine 2.03 H Glucose 224 H Calcium 9.6 Cardiac Enzymes 05/20/17 05/21/17 Range/Units 23:08 04:31 Troponin I 0.03 0.03 (< 0.04) ng/mL Liver Function 05/21/17 Range/Units 04:31 Total Bilirubin 0.3 (0.3-1.0) mg/dL AST 23 (13-39) Units/L ALT 31 (7-52) Units/L Alkaline Phosphatase 63 (34-104) Units/L Albumin 3.3 L (3.5-5.7) g/dL - ABG Interpretation ABG results: PT/INR, D-dimer PT 13.4 Seconds (9.4-12.1) H 05/21/17 04:31 Consult Discharge Plan - Plan Referrals: Tavares Palumbo, GEAR TOOTH LAPPING MACHINE OPERATOR [Primary Care Provider] - (OFFICE WILL NOT MAKE A FOLLOW UP APPOINTMENT UNTIL WE HAVE A DISCHARGE ORDER) <Jose Lawler H - Last Filed: 05/21/17 10:11> Date of Encounter: 05/21/17 - Assessment and plan (1) Acute and chronic respiratory failure with hypoxia Current Visit: Yes Status: Acute (2) Pneumonia Current Visit: Yes Status: Suspected Qualifiers: Pneumonia type: due to unspecified organism Laterality: bilateral Lung location: lower lobe of lung Qualified Code(s): J18.1 - Lobar pneumonia, unspecified organism (3) Ischemic cardiomyopathy Current Visit: Yes Status: Acute (4) DVT prophylaxis Current Visit: Yes Status: Acute - Constitutional Vitals: Temp Pulse Resp BP Pulse Ox 98.3 F 88 17 174/68 94 05/21/17 06:44 05/21/17 07:45 05/21/17 07:54 05/21/17 06:44 05/21/17 07:54 Internal Medicine: Result - Labs CBC & Chem 7: 05/21/17 04:31 05/21/17 04:31 Labs: Short CBC 05/21/17 Range/Units 04:31 WBC 12.0 H (4.3-11.1) K/mcL Hgb 12.9 (12.9-16.9) g/dL Hct 38.9 (37.5-50.1) % Plt Count 308 (140-400) K/mcL Neutrophils # 11.5 H (1.6-8.9) K/mcL BMP 05/21/17 04:31 Sodium 136 Potassium 4.2 Chloride 94 L Carbon Dioxide 32 H BUN 38 H Creatinine 2.03 H Glucose 224 H Calcium 9.6 Cardiac Enzymes 05/20/17 05/21/17 Range/Units 23:08 04:31 Troponin I 0.03 0.03 (< 0.04) ng/mL Liver Function 05/21/17 Range/Units 04:31 Total Bilirubin 0.3 (0.3-1.0) mg/dL AST 23 (13-39) Units/L ALT 31 (7-52) Units/L Alkaline Phosphatase 63 (34-104) Units/L Albumin 3.3 L (3.5-5.7) g/dL - ABG Interpretation ABG results: PT/INR, D-dimer PT 13.4 Seconds (9.4-12.1) H 05/21/17 04:31 - Attending Attestation Acute on chronic hypoxic respiratory failure secondary to acute COPD exacerbation due to community-acquired pneumonia in combination with systolic CHF exacerbation with volume overload Ejection fraction improved up to 50% but before that , it was 35% Continue Rocephin and azithromycin day #2, Solu-Medrol, start Lasix IV Verify list of meds Chest x-ray shows bilateral opacities and also vascular congestion Acute diarrhea, send GI panel I examined this patient and my medical decision-making was reviewed with the Resident Physician. I agree with the documented findings, disposition and treatment plan as described except to the extent set forth below.
[2017-05-21] MEDS ORDERED: Budesonide/Formoterol 80/4.5 MDI IH SCH (10:00)
[2017-05-21 13:24] LABS: Adenovirus F 40/41 PCR Not detected (Not detect); C.difficile Toxin A/B by PCR Not detected (Not detect); Campylobacter by PCR Not detected (Not detect); Cryptosporidium by PCR Not detected (Not detect); Cyclospora cayetanensis PCR Not detected (Not detect); E. coli O157 by PCR Not detected (Not detect); Entamoeba histolytica PCR Not detected (Not detect); Enteroaggregative E.coli(EAEC) Not detected (Not detect); Enteropathogenic E.coli(EPEC) Not detected (Not detect); Enterotoxigenic E.coli (ETEC) Not detected (Not detect); Giardia lamblia PCR Not detected (Not detect); Plesiomonas shigelloides PCR Not detected (Not detect); Salmonella PCR Not detected (Not detect); Shig/EnteroinvasiveE coli EIEC Not detected (Not detect); Shigalike tox-prod E coli STEC Not detected (Not detect); Vibrio PCR Not detected (Not detect); Vibrio cholerae PCR Not detected (Not detect); Yersinia enterocolitica PCR Not detected (Not detect)
[2017-05-21 13:25] LABS: Astrovirus PCR Not detected (Not detect); Norovirus GI/GII PCR Not detected (Not detect); Rotavirus A PCR Not detected (Not detect); Sapovirus PCR Not detected (Not detect)
[2017-05-21] MEDS ORDERED: NON-FORMULARY MEDICATION 1 EACH EACH (Vitamin B Complex [B Complex] 1 TAB) PO SCH (13:45)
[2017-05-21] MEDS: Vitamin B Complex/Vit C/Vit E 1 EACH TABLET PO SCH (14:51)
[2017-05-21] MEDS: Aspirin Enteric Coated 81 MG Tablet PO SCH (14:51)
[2017-05-21] MEDS: Diltiazem CD (24hr) 180 MG CAPSULE PO SCH (14:51)
--- NOTE | 2017-05-21 17:54 | Electrocardiograph Report ---
[place] [id number] Test Date: 2017-05-21 Pat Name: Skip Gonzalez Department: 110 Room: 2N08 Gender: M Customer Account Specialist: STACI : [id number] Requested By: Dick Sepulveda Order Number: [id number] Reading MD: Franca De Jesus Measurements Intervals [place] Rate: 89 P: 59 AL: 164 QRS: -55 QRSD: 121 T: 65 QT: 372 QTc: 419 Interpretive Statements SINUS RHYTHM POSSIBLE RIGHT VENTRICULAR CONDUCTION DELAY INFERIOR MYOCARDIAL INFARCTION, PROBABLY OLD ANTEROSEPTAL MYOCARDIAL INFARCTION, OF INDETERMINATE AGE Electronically Signed On 05-21-2017 17:52:51 EDT by Franca De Jesus
[2017-05-21] MEDS: Azithromycin 500 MG in D5% in Water 250 ML IVPB SCH (18:24)
[2017-05-21] MEDS: Budesonide/Formoterol 80/4.5 MDI IH SCH (20:16)
[2017-05-21] MEDS: traMADol 50 MG TABLET PO PRN (22:03)
[2017-05-22] MEDS: Ipratropium/Albuterol Neb 3 ML IH SCH ×7 (00:28→23:05)
[2017-05-22] MEDS: methylPREDNISolone 125 MG/2 ML VIAL IVP SCH ×2 (01:28→09:00)
[2017-05-22] MEDS: *HR* Heparin 5,000 UNIT/ML VIAL SQ SCH ×3 (01:28→15:52)
[2017-05-22 03:49] LABS: Basophils % 0.1 %; Hematocrit 37.8 % (37.5-50.1); Hemoglobin 12.5 g/dL (12.9-16.9); Immature Granulocytes % 0.7 % (0-4); Lymphocytes # 0.4 K/mcL (0.6-4.6); Mean Corpuscular HGB Conc 33.1 g/dL (31.6-35.5); Mean Corpuscular Hemoglobin 30.6 pg (28.0-33.3); Mean Corpuscular Volume 92.6 fL (83.0-100.0); Mean Platelet Volume 10.6 fL (9.4-12.4); Monocytes # 0.3 K/mcL (0.0-1.3); Monocytes % 1.5 %; Platelet Count 296 K/mcL (140-400); Red Blood Count 4.08 M/mcL (4.19-5.50); Red Cell Distribution Width 13.2 % (11.5-14.5); Segmented Neutrophils % 95.7 %
[2017-05-22 05:23] LABS: Calcium 9.3 mg/dL (8.6-10.3); Potassium 4.1 mEq/L (3.5-5.1)
[2017-05-22] MEDS: Budesonide/Formoterol 80/4.5 MDI IH SCH ×2 (07:44→19:50)
[2017-05-22] MEDS: cefTRIAXone 1,000 MG in Water for inj. (sterile) 20 ML 10 ML IVP SCH (09:00)
[2017-05-22] MEDS ORDERED: Aspirin Enteric Coated 81 MG Tablet PO SCH (09:00)
[2017-05-22] MEDS: Furosemide 40 MG/4 ML VIAL IVP SCH (09:01)
[2017-05-22] MEDS: Diltiazem CD (24hr) 180 MG CAPSULE PO SCH (09:02)
--- NOTE | 2017-05-22 09:13 | Internal Med Progress Note ---
<Sam Yanes - Last Filed: 05/22/17 09:11> Date of Encounter: 05/22/17 Time of Encounter: 09:11 - Assessment and plan (1) Acute and chronic respiratory failure with hypoxia Current Visit: Yes Status: Acute Assessment and plan: Secondary to pneumonia and COPD exacerbation and suspected CHF exacerbation Currently requiring 2 L oxygen plan to wean down. Continue azithromycin and ceftriaxone for total five days Awaiting sputum culture and blood culture. Continue scheduled DuoNeb's, and steroids (2) Ischemic cardiomyopathy Current Visit: Yes Status: Acute Assessment and plan: Repeat echocardiogram shows EF of 65%. This is an improvement from previous echocardiogram or patient's EF was 50%. Absent Rales on lung exam. De-escalate Lasix IV to home dose of 40 BID. Patient's urine output last 24 hours was 1600 mL. Renal function stable. (3) Pneumonia Current Visit: Yes Status: Suspected Assessment and plan: plan as above. Qualifiers: Pneumonia type: due to unspecified organism Laterality: bilateral Lung location: lower lobe of lung Qualified Code(s): J18.1 - Lobar pneumonia, unspecified organism (4) COPD exacerbation Current Visit: Yes Status: Acute Assessment and plan: 2nd PNA improvement in cough and sputum production descalate to prednisone 40mg BID continue antibiotics, DuoNeb's. (5) Diarrhea Current Visit: Yes Status: Acute Assessment and plan: GI stool panel negative. Likely secondary to antibiotic use. Qualifiers: Diarrhea type: unspecified type Qualified Code(s): R19.7 - Diarrhea, unspecified (6) Urinary retention Current Visit: Yes Status: Acute Assessment and plan: We will remove Wright today and scanned patient's bladder to assess for urinary retention. (7) DVT prophylaxis Current Visit: Yes Status: Acute Assessment and plan: heparin sq - Subjective Interval history: Patient reports no acute events overnight. His shortness of breath has improved. He denies any cough or sputum production. He reports no headache, chest pain, abdominal pain, nausea. He is tolerating his diet. - Constitutional Vitals: Temp Pulse Resp BP Pulse Ox 97.8 F 75 17 152/67 96 05/22/17 06:45 05/22/17 06:45 05/22/17 07:46 05/22/17 06:45 05/22/17 07:46 General appearance: Present: cooperative, mild distress, A&O X 3, pleasant, answers questions appropriately - Other Additional findings: General: plesant without distress Heart: Regular rate and rhythm with no murmur Lungs: Clear to auscultation bilaterally Abdomen: Soft nontender, nondistended positive bowel sounds Skin: warm and dry Extremities: Absent pedal edema, Neuro: alert and oriented x3 Vascular: Pedal and radial pulses 2 out of 4 Internal Medicine: Result - Labs CBC & Chem 7: 05/22/17 03:07 05/22/17 03:07 Labs: Short CBC 05/22/17 Range/Units 03:07 WBC 19.8 H D (4.3-11.1) K/mcL Hgb 12.5 L (12.9-16.9) g/dL Hct 37.8 (37.5-50.1) % Plt Count 296 (140-400) K/mcL Neutrophils # 19.0 H (1.6-8.9) K/mcL BMP 05/22/17 03:07 Sodium 139 Potassium 4.1 Chloride 96 L Carbon Dioxide 34 H BUN 39 H Creatinine 2.05 H Glucose 199 H Calcium 9.3 Cardiac Enzymes 05/21/17 Range/Units 10:45 Troponin I 0.03 (< 0.04) ng/mL - ABG Interpretation ABG results: PT/INR, D-dimer PT 13.4 Seconds (9.4-12.1) H 05/21/17 04:31 - Impressions Impressions Echocardiogram 05/21/17 11:00 Impressions: LVEF 60-65%. Mild left ventricular diastolic dysfunction. Normal right ventricular structure and function. No pulmonary hypertension. Left Ventricular Wall Motion: Rest Echo Findings All wall segments showed normal motion. Findings: Study Quality * Technically adequate exam. ECG Findings * Normal sinus rhythm. Left Ventricle * Normal LV size and wall thickness. * LVEF 60-65%. * Mild left ventricular diastolic dysfunction. Right Ventricle * Normal right ventricular structure and function. Left Atrium * Normal left atrial size. Right Atrium * Normal right atrial size. Mitral Valve * No mitral regurgitation. * Mitral valve not optimally visualized. * No mitral stenosis. Aortic Valve * Aortic valve not well visualized. * No aortic stenosis. * No aortic regurgitation. Tricuspid Valve * Tricuspid valve not well visualized. * Trace tricuspid regurgitation. * Estimated RA pressure is 8 mmHg. * Estimated RVSP is 32 mmHg. * No pulmonary hypertension. Pulmonic Valve * Pulmonic valve is not well visualized. * No pulmonic stenosis. * No pulmonic regurgitation. Pulmonary Artery * Pulmonary artery not well visualized. Aorta * Not well visualized. Interatrial Septum * Interatrial septum not well evaluated. Pericardium * There is no pericardial effusion present. IVC * The IVC is not dilated. * < 50% respiratory change. Consult Discharge Plan - Plan Referrals: Tavares Palumbo, COOPERATIVE MANAGER [Primary Care Provider] - (OFFICE WILL NOT MAKE A FOLLOW UP APPOINTMENT UNTIL WE HAVE A DISCHARGE ORDER) Prescriptions: Walker - Rollator [ROLLATOR] 1 each .ROUTE AD #1 each <Jose Lawler - Last Filed: 05/22/17 09:58> Date of Encounter: 05/22/17 - Assessment and plan (1) Acute and chronic respiratory failure with hypoxia Current Visit: Yes Status: Acute (2) Ischemic cardiomyopathy Current Visit: Yes Status: Acute (3) Pneumonia Current Visit: Yes Status: Suspected Qualifiers: Pneumonia type: due to unspecified organism Laterality: bilateral Lung location: lower lobe of lung Qualified Code(s): J18.1 - Lobar pneumonia, unspecified organism (4) COPD exacerbation Current Visit: Yes Status: Acute (5) Diarrhea Current Visit: Yes Status: Acute Qualifiers: Diarrhea type: unspecified type Qualified Code(s): R19.7 - Diarrhea, unspecified (6) Urinary retention Current Visit: Yes Status: Acute (7) DVT prophylaxis Current Visit: Yes Status: Acute - Constitutional Vitals: Temp Pulse Resp BP Pulse Ox 97.8 F 71 17 152/67 92 05/22/17 06:45 05/22/17 08:50 05/22/17 07:46 05/22/17 06:45 05/22/17 08:50 Internal Medicine: Result - Labs CBC & Chem 7: 05/22/17 03:07 05/22/17 03:07 Labs: Short CBC 05/22/17 Range/Units 03:07 WBC 19.8 H D (4.3-11.1) K/mcL Hgb 12.5 L (12.9-16.9) g/dL Hct 37.8 (37.5-50.1) % Plt Count 296 (140-400) K/mcL Neutrophils # 19.0 H (1.6-8.9) K/mcL BMP 05/22/17 03:07 Sodium 139 Potassium 4.1 Chloride 96 L Carbon Dioxide 34 H BUN 39 H Creatinine 2.05 H Glucose 199 H Calcium 9.3 Cardiac Enzymes 05/21/17 Range/Units 10:45 Troponin I 0.03 (< 0.04) ng/mL - ABG Interpretation ABG results: PT/INR, D-dimer PT 13.4 Seconds (9.4-12.1) H 05/21/17 04:31 - Impressions Impressions Echocardiogram 05/21/17 11:00 Impressions: LVEF 60-65%. Mild left ventricular diastolic dysfunction. Normal right ventricular structure and function. No pulmonary hypertension. Left Ventricular Wall Motion: Rest Echo Findings All wall segments showed normal motion. Findings: Study Quality * Technically adequate exam. ECG Findings * Normal sinus rhythm. Left Ventricle * Normal LV size and wall thickness. * LVEF 60-65%. * Mild left ventricular diastolic dysfunction. Right Ventricle * Normal right ventricular structure and function. Left Atrium * Normal left atrial size. Right Atrium * Normal right atrial size. Mitral Valve * No mitral regurgitation. * Mitral valve not optimally visualized. * No mitral stenosis. Aortic Valve * Aortic valve not well visualized. * No aortic stenosis. * No aortic regurgitation. Tricuspid Valve * Tricuspid valve not well visualized. * Trace tricuspid regurgitation. * Estimated RA pressure is 8 mmHg. * Estimated RVSP is 32 mmHg. * No pulmonary hypertension. Pulmonic Valve * Pulmonic valve is not well visualized. * No pulmonic stenosis. * No pulmonic regurgitation. Pulmonary Artery * Pulmonary artery not well visualized. Aorta * Not well visualized. Interatrial Septum * Interatrial septum not well evaluated. Pericardium * There is no pericardial effusion present. IVC * The IVC is not dilated. * < 50% respiratory change. - Attending Attestation Acute on chronic hypoxic respiratory failure secondary to acute COPD exacerbation due to community-acquired pneumonia in combination with systolic CHF exacerbation with volume overload Ejection fraction improved up to 50% but before that , it was 35%, the new ECHO showed : An ejection fraction of 60-65%, mild diastolic dysfunction. Continue Rocephin and azithromycin day #3, stop Solu-Medrol and taper prednisone , Discontinue Lasix IV and start Bumex Verify list of meds Chest x-ray shows bilateral opacities and also vascular congestion Acute diarrhea, GI panel was negative I examined this patient and my medical decision-making was reviewed with the Resident Physician. I agree with the documented findings, disposition and treatment plan as described except to the extent set forth below.
[2017-05-22] MEDS: Vitamin B Complex/Vit C/Vit E 1 EACH TABLET PO SCH (12:16)
[2017-05-22] MEDS: Aspirin Enteric Coated 81 MG Tablet PO SCH (12:16)
[2017-05-22 13:15] LABS: Hematocrit 39.9 % (37.5-50.1); Hemoglobin 12.7 g/dL (12.9-16.9); Mean Corpuscular HGB Conc 31.8 g/dL (31.6-35.5); Mean Corpuscular Hemoglobin 30.3 pg (28.0-33.3); Mean Corpuscular Volume 95.2 fL (83.0-100.0); Mean Platelet Volume 10.5 fL (9.4-12.4); Platelet Count 341 K/mcL (140-400); Red Blood Count 4.19 M/mcL (4.19-5.50); Red Cell Distribution Width 13.2 % (11.5-14.5)
[2017-05-22 14:25] LABS: Lymphocytes # 1.4 K/mcL (0.6-4.6); Neutrophils # 22.5 K/mcL (1.6-8.9)
[2017-05-22 14:26] LABS: Platelet Estimate Normal (Normal); Reactive Lymphocytes Present (Not Present)
[2017-05-22] MEDS: Bumetanide 1 MG TABLET PO SCH (15:52)
[2017-05-22] MEDS: predniSONE 20 MG TABLET PO SCH (15:52)
[2017-05-22] MEDS ORDERED: Ondansetron 4 MG/2 ML VIAL IVP PRN (16:32)
[2017-05-22] MEDS: Azithromycin 500 MG in D5% in Water 250 ML IVPB SCH (20:25)
[2017-05-23] MEDS: *HR* Heparin 5,000 UNIT/ML VIAL SQ SCH ×2 (00:26→08:58)
[2017-05-23] MEDS: traMADol 50 MG TABLET PO PRN (00:26)
[2017-05-23] MEDS: Ipratropium/Albuterol Neb 3 ML IH SCH ×4 (04:16→16:01)
[2017-05-23] MEDS: Budesonide/Formoterol 80/4.5 MDI IH SCH (07:50)
[2017-05-23] MEDS: predniSONE 20 MG TABLET PO SCH (08:58)
[2017-05-23] MEDS: Bumetanide 1 MG TABLET PO SCH (08:58)
[2017-05-23] MEDS: Diltiazem CD (24hr) 180 MG CAPSULE PO SCH (08:58)
[2017-05-23] MEDS: cefTRIAXone 1,000 MG in Water for inj. (sterile) 20 ML 10 ML IVP SCH (08:58)
--- NOTE | 2017-05-23 09:58 | Discharge Summary ---
<Sam Yanes - Last Filed: 05/23/17 11:40> - NOTES TO OUTPATIENT PROVIDER Notes to Outpatient Provider: Patient admitted for COPD exacerbation, pneumonia , CHF exacerbation. Patient was treated with IV antibiotics for 3 days, steroids and nebulizer treatments. Patient's diuresis was switched from Lasix to Bumex. Patient will be discharged on Bumex. He will also be discharged with 4 days of Cefdinir to finish out his antibiotic therapy for pneumonia. Orders not resulted at time of discharge: Pending orders 05/20/17 22:45 EKG [ECG 12 lead ECG] [ECG] Stat Date of Encounter: 05/23/17 Time of Encounter: 09:49 - Discharge Diagnosis (1) Acute and chronic respiratory failure with hypoxia Priority: Primary Status: Acute (2) Ischemic cardiomyopathy Priority: Secondary Status: Acute (3) Pneumonia Priority: Secondary Status: Suspected Qualifiers: Pneumonia type: due to unspecified organism Laterality: bilateral Lung location: lower lobe of lung Qualified Code(s): J18.1 - Lobar pneumonia, unspecified organism (4) COPD exacerbation Priority: Secondary Status: Resolved (5) Diarrhea Priority: Secondary Status: Resolved Qualifiers: Diarrhea type: unspecified type Qualified Code(s): R19.7 - Diarrhea, unspecified (6) Urinary retention Priority: Secondary Status: Resolved (7) DVT prophylaxis Priority: Secondary Status: Acute Hospital course: Mr. Gonzalez is a 82 year old male presented with sob. Reports that 3 weeks ago he started having shortness of breath and green productive sputum. His PCV placed him on a 5 day antibiotic regimen however his symptoms did not improve. Thereafter his PCP placed him on Augmentin which helped improve his breathing but he developed diarrhea. States for the past 3 days he has had creamy diarrhea up to 11 times a day. He denied any fevers, abdominal pain, hematochezia, melena, nausea, vomiting. Furthermore he states his breathing became worse and continues to have yellow sputum and cough. Due to this patient presented to [facility]. Patient ABG showed hypercapnia and he was placed on BiPAP and also started on Rocephin and Zithromax due to elevated white blood cell count. CXr showed bibasilar airspace opacities compatible with atelectasis and mild vascular congestion with small left pleural effusion. Patient also had bilateral lower extremity swelling. Patient was then transferred to the [facility]. The patient's COPD exacerbation he was given nebulizer treatments, steroids, and IV antibiotics. Sputum culture and blood cultures were negative. Patient' s diarrhea was evaluated with chest pain which was negative. It was determined likely secondary to Augmentin. Patient also complained of urinary retention and initially had a Wright catheter placed. Urinalysis was negative for infection. Wright catheter was removed after 48 hours and bladder scan was negative for urinary retention. Patient was placed on IV Lasix for CHF exacerbation. Repeat echocardiogram showed an EF of 65% which was an improvement from his previous echocardiogram LVEF of 50%. Due to his baseline renal function patient's diuresis medication was changed from Lasix to Bumex. Patient was able to be weaned down on oxygen to 2 L. He had a 6 minute oxygen qualification test which qualified him for 2 L oxygen. Patient shortness of breath improved with above therapy. His frequency of bowel movements have decreased since being inPatient. He is tolerating his diet. Patient is being evaluated by physical therapy and occupational therapy. He will go home on 4 additional days of omnicef, for total of 7 days of antibiotics for pneumonia. He will also have a prednisone taper and prescription for Bumex. Discharge discussed with: patient - Time Spent with Patient Total time spent providing and/or coordinating discharge services: Greater than 30 minutes - Discharge Medications Prescriptions: Bumetanide [Bumex] 1 mg PO BIDDIURETIC #60 tablet Cefdinir [Omnicef] 300 mg PO BID #8 capsule predniSONE [Prednisone] 10 mg PO TAPER #10 tab.ds.pk Walker - Rollator [ROLLATOR] 1 each .ROUTE AD #1 each Home Medications: Albuterol Neb [Proventil Neb] 2.5 mg IH Q4-6H PRN 05/21/17 [History] Albuterol Sulfate [Proair Hfa] 1 puff IH DAILY PRN 05/21/17 [History] Aspirin [Lo-Dose Aspirin EC] 81 mg PO DAILY 05/21/17 [History] Atorvastatin [Lipitor] 40 mg PO HS 05/21/17 [History] Bisacodyl [Woman's Laxative] 5 mg PO DAILY PRN 05/21/17 [History] Calcium Carbonate [Calcium] 1,000 mg PO Q4H PRN 05/21/17 [History] Cholecalciferol (Vitamin D3) [Vitamin D3] 50,000 unit PO QWEEK 05/21/17 [History ] Clopidogrel [Plavix] 75 mg PO DAILY 05/21/17 [History] Diltiazem HCl [Diltiazem 24Hr Cd] 360 mg PO DAILY 05/21/17 [History] Docusate [Colace] 1 spr NS DAILY PRN 05/21/17 [History] Lipoflavonoid 1 cap PO DAILY 05/21/17 [History] Loperamide [Imodium] 2 mg PO Q6H 05/21/17 [History] Metoprolol Tartrate [Lopressor] 50 mg PO BID 05/21/17 [History] Tamsulosin [Flomax] 0.4 mg PO DAILY 05/21/17 [History] Vitamin B Complex [B Complex] 1 tab PO DAILY 05/21/17 [History] Zolpidem [Ambien] 5 mg PO HS 05/21/17 [History] Walker - Rollator [ROLLATOR] 1 each .ROUTE AD #1 each 05/22/17 [Rx] Bumetanide [Bumex] 1 mg PO BIDDIURETIC #60 tablet 05/23/17 [Rx] Cefdinir [Omnicef] 300 mg PO BID #8 capsule 05/23/17 [Rx] predniSONE [Prednisone] 10 mg PO TAPER #10 tab.ds.pk 05/23/17 [Rx] Allergies/Adverse Reactions: 3 Allergy/AdvReac Type Severity Reaction Status Date / Time Beta-Blockers AdvReac See Verified 05/20/17 21:43 (Beta-Adrenergic Bloc Comments codeine AdvReac Nausea Verified 05/20/17 21:43 Date of admission: 05/20/17 22:42 Primary care physician: Tavares Palumbo CNP Discharging clinician: Sam Yanes Anticipated date of discharge: 05/23/17 - Constitutional Vitals: Temp Pulse Resp BP Pulse Ox 97.9 F 70 18 154/64 90 05/23/17 07:44 05/23/17 07:44 05/23/17 07:50 05/23/17 07:44 05/23/17 07:50 General appearance: Present: cooperative, mild distress, A&O X 3, pleasant, answers questions appropriately - Other Additional findings: General: plesant without distress HEENT: Head atraumatic, normocephalic, EOMI, PERRL, neck nontender to palpation , absent lymphadenopathy, Moist Mucous Membranes, Heart: Regular rate and rhythm with no murmur Lungs: Clear to auscultation bilaterally Abdomen: Soft nontender, nondistended positive bowel sounds Skin: warm and dry Extremities: Absent pedal edema, Neuro: Cranial nerves II through XII intact, UE and LE sensation equal bilaterally, UE and LE strength 5/5, alert oriented 3, Heel to tinoco intact, finger to nose intact, Gait intact, rhombergs sign negative, b/l plantar reflexes downwards Vascular: Pedal and radial pulses 2 out of 4 - Patient Status Disposition: Transfer Inpatient Rehab Fac Condition: Fair Functional capacity at discharge: uses cane/walker Overall status at discharge: patient is progressing back to baseline - Discharge Instructions Follow Up With: Tavares Palumbo CNP [Primary Care Provider] - (OFFICE WILL NOT MAKE A FOLLOW UP APPOINTMENT UNTIL WE HAVE A DISCHARGE ORDER) - Diet and Activity Activity: as per physical therapy Diet: low fat, low cholesterol, low salt diet <Jose Lawler H - Last Filed: 05/23/17 12:58> Orders not resulted at time of discharge: Pending orders 05/20/17 22:45 EKG [ECG 12 lead ECG] [ECG] Stat Date of Encounter: 05/23/17 - Discharge Diagnosis (1) Acute and chronic respiratory failure with hypoxia Status: Acute (2) Ischemic cardiomyopathy Status: Acute (3) Pneumonia Status: Suspected Qualifiers: Pneumonia type: due to unspecified organism Laterality: bilateral Lung location: lower lobe of lung Qualified Code(s): J18.1 - Lobar pneumonia, unspecified organism (4) COPD exacerbation Status: Resolved (5) Diarrhea Status: Resolved Qualifiers: Diarrhea type: unspecified type Qualified Code(s): R19.7 - Diarrhea, unspecified (6) Urinary retention Status: Resolved (7) DVT prophylaxis Status: Acute Hospital course: Mr. Gonzalez is a 82 year old male - Time Spent with Patient Total time spent providing and/or coordinating discharge services: Date of admission: 05/20/17 22:42 Primary care physician: Tavares Palumbo CNP Consults: 03/15/18 09:48 Consult to Occupational Therapy [CONS] Stat Comment: Evaluate, develop and implement POC Reason for Consult: Patient to discharge today and is shaky when standing. Deconditioned Does patient have active BEDREST order?: No Is patient medically & hemodynamically stable?: Yes Consult to Physical Therapy [CONS] Stat Comment: Evaluate, develop and implement POC Reason for Consult: Patient to discharge today and is shaky when standing. Deconditioned Does patient have active BEDREST order?: No Is patient medically & hemodynamically stable?: Yes - Constitutional Vitals: Temp Pulse Resp BP Pulse Ox 97.9 F 63 18 121/55 95 05/23/17 07:44 05/23/17 11:54 05/23/17 11:54 05/23/17 11:54 05/23/17 11:54 - Attending Attestation Acute on chronic hypoxic respiratory failure secondary to acute COPD exacerbation due to community-acquired pneumonia(unknown agent) in combination with systolic CHF exacerbation with volume overload Ejection fraction improved up to 50% but before that , it was 35%, the new ECHO showed : An ejection fraction of 60-65%, mild diastolic dysfunction. Received 4 days of Rocephin, completed 3 days of azithromycin, complete 4 days of cefdinir. taper prednisone, new prescription given for 40 mg daily for 3 days , then 30 mg for 3 days, 20 mg for 3 days, and 10 mg for 3 days Discontinued Lasix and started Bumex Chest x-ray showed bilateral opacities and also vascular congestion Acute diarrhea, GI panel was negative Time spent on this discharge 40 minutes I examined this patient and my medical decision-making was reviewed with the Resident Physician. I agree with the documented findings, disposition and treatment plan as described except to the extent set forth below.
[2017-05-23 11:56] VITALS: BP 121/55
[2017-05-23] MEDS: Vitamin B Complex/Vit C/Vit E 1 EACH TABLET PO SCH (11:59)
--- NOTE | 2017-05-23 15:40 | Physician Discharge Referral ---
Home Health/Hosp Referral Info Transfer to: Home Health Attending Provider: Mariza Provider in Charge Post Discharge: PCP - Diagnosis (1) Acute and chronic respiratory failure with hypoxia Priority: Primary Status: Acute (2) Ischemic cardiomyopathy Priority: Secondary Status: Acute (3) Pneumonia Priority: Secondary Status: Suspected (4) COPD exacerbation Priority: Secondary Status: Resolved (5) Diarrhea Priority: Secondary Status: Resolved (6) Urinary retention Priority: Secondary Status: Resolved (7) DVT prophylaxis Priority: Secondary Status: Acute - Respiratory Orders Oxygen / L per min (2L) Smoking Cessation: Smoking cessation has been advised. For more information, call the [place] Tobacco Quit Line at 3-780-DGGT-NOW. - Diet/Nutrition Diet/Nutrition Orders: Cardiac - Activity Activity Orders: Walker - Services Needed Following services are medically necessary services: Physical Therapy, Occupational Therapy - Transfer Medications Prescriptions: Bumetanide [Bumex] 1 mg PO BIDDIURETIC #60 tablet Cefdinir [Omnicef] 300 mg PO BID #8 capsule predniSONE [Prednisone] 10 mg PO TAPER #10 tab.ds.pk Walker - Rollator [ROLLATOR] 1 each .ROUTE AD #1 each Home Medications: Albuterol Neb [Proventil Neb] 2.5 mg IH Q4-6H PRN 05/21/17 [History] Albuterol Sulfate [Proair Hfa] 1 puff IH DAILY PRN 05/21/17 [History] Aspirin [Lo-Dose Aspirin EC] 81 mg PO DAILY 05/21/17 [History] Atorvastatin [Lipitor] 40 mg PO HS 05/21/17 [History] Bisacodyl [Woman's Laxative] 5 mg PO DAILY PRN 05/21/17 [History] Calcium Carbonate [Calcium] 1,000 mg PO Q4H PRN 05/21/17 [History] Cholecalciferol (Vitamin D3) [Vitamin D3] 50,000 unit PO QWEEK 05/21/17 [History ] Clopidogrel [Plavix] 75 mg PO DAILY 05/21/17 [History] Diltiazem HCl [Diltiazem 24Hr Cd] 360 mg PO DAILY 05/21/17 [History] Docusate [Colace] 1 spr NS DAILY PRN 05/21/17 [History] Lipoflavonoid 1 cap PO DAILY 05/21/17 [History] Loperamide [Imodium] 2 mg PO Q6H 05/21/17 [History] Metoprolol Tartrate [Lopressor] 50 mg PO BID 05/21/17 [History] Tamsulosin [Flomax] 0.4 mg PO DAILY 05/21/17 [History] Vitamin B Complex [B Complex] 1 tab PO DAILY 05/21/17 [History] Zolpidem [Ambien] 5 mg PO HS 05/21/17 [History] Walker - Rollator [ROLLATOR] 1 each .ROUTE AD #1 each 05/22/17 [Rx] Bumetanide [Bumex] 1 mg PO BIDDIURETIC #60 tablet 05/23/17 [Rx] Cefdinir [Omnicef] 300 mg PO BID #8 capsule 05/23/17 [Rx] predniSONE [Prednisone] 10 mg PO TAPER #10 tab.ds.pk 05/23/17 [Rx] Allergies/Adverse Reactions: 3 Allergy/AdvReac Type Severity Reaction Status Date / Time Beta-Blockers AdvReac See Verified 05/20/17 21:43 (Beta-Adrenergic Bloc Comments codeine AdvReac Nausea Verified 05/20/17 21:43 Certification: Further, I certify that my clinical findings support that this patient is homebound (i.e. absences from home require considerable and taxing effort and are for medical reasons or muslim services or infrequently or short duration when for other reasons) because: Homebound Reason: Patient requires assistance of a person or device to safely leave home, Absences from home are contraindicated except to recieve medical care Attestation: My signature below is to certify that this patient is under my care and that I, or nurse practitioner, or a physician's floral assistant working with me, has a face-to -face encounter with this patient.
--- NOTE | 2017-05-28 08:09 | Electrocardiograph Report ---
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
== END 2017-05-23 17:30 | DRG 193 ==
LOC: 2NNU
PROVIDERS: ADMIT Pediatrics; ATTEND Internal Medicine